=== PATIENT | male | born 1965 | race Caucasian/White ===

== ENCOUNTER → 2020-07-29 11:32 | Outpatient (BNVA) | payer MEDICAID, SELFPAY | PROVIDERS: PCP Internal Medicine Geriatric Medicine; Visit Provider Internal Medicine Pulmonary Disease | DX: J45.40 Moderate persistent asthma, uncomplicated (principal); Z91.09 Other allergy status, other than to drugs and biological substances | CPT/HCPCS: 99212 ==

== ENCOUNTER → 2020-08-16 10:53 | Outpatient (BNVA) | payer MEDICAID, SELFPAY | PROVIDERS: PCP Internal Medicine Geriatric Medicine; Visit Provider Orthopaedic Surgery | DX: M17.12 Unilateral primary osteoarthritis, left knee (principal); Z98.890 Other specified postprocedural states | CPT/HCPCS: 20610; 99212; J1100 ==

== ENCOUNTER 2020-11-23 11:42 | Outpatient (REF) | payer MEDICAID, SELFPAY ==
--- NOTE | ~2020-11-23 | XR_ITS ---
EXAMINATION: XR ELBOW, LEFT CLINICAL INFORMATION: Left elbow. Lump with tenderness laterally. COMPARISON: March 21, 2008 TECHNIQUE: AP, lateral, and oblique views of the left elbow. FINDINGS: There is no evidence of acute fracture or dislocation of the left elbow. No left elbow effusion is seen. There is lateral epicondyle calcification present XR/XR elbow LT min 3V IMPRESSION: Lateral epicondylitis.
== END 2020-11-23 11:43 | disposition home or self-care (01) ==
LOC: HO.XRAY 11:42
PROVIDERS: PCP Internal Medicine Geriatric Medicine; Visit Provider Nurse Practitioner Family
DX: M25.522 Pain in left elbow (principal)
CPT/HCPCS: 73080

== ENCOUNTER 2020-12-14 12:49 | Outpatient (REF) | payer MEDICAID, SELFPAY ==
--- NOTE | ~2020-12-14 | US_ITS ---
EXAMINATION: ULTRASOUND EXTREMITY NONVASCULAR CLINICAL INFORMATION: 54-year-old male with swelling and mass of the left upper limb. COMPARISON: Left elbow radiographs November 23, 2020 TECHNIQUE: Grayscale and color Doppler imaging was obtained in the region of palpable abnormality near the left elbow. FINDINGS: No focal soft tissue mass identified. No focal fluid collection identified. No abnormal color Doppler flow. The celiac vein in this region is compressible and demonstrates normal color flow consistent with patency. US/US extremity nonvascular kendrick IMPRESSION: No focal lesion identified by ultrasound imaging.
== END 2020-12-14 12:50 | disposition home or self-care (01) ==
LOC: HO.US 12:49
PROVIDERS: PCP Internal Medicine Geriatric Medicine; Visit Provider Nurse Practitioner Family
DX: M25.522 Pain in left elbow (principal); R22.32 Localized swelling, mass and lump, left upper limb
CPT/HCPCS: 76882

== ENCOUNTER → 2021-01-24 14:17 | Outpatient (BNVA) | payer MEDICAID, SELFPAY | PROVIDERS: PCP Internal Medicine Geriatric Medicine; Visit Provider Orthopaedic Surgery | DX: M77.12 Lateral epicondylitis, left elbow (principal) | CPT/HCPCS: 20550; 20605; 99212; J1100 ==

== ENCOUNTER → 2021-02-08 09:54 | Outpatient (BNVA) | payer MEDICAID, SELFPAY | PROVIDERS: PCP Internal Medicine Geriatric Medicine; Visit Provider Surgery Vascular Surgery | DX: I83.12 Varicose veins of left lower extremity with inflammation (principal) | CPT/HCPCS: 99202 ==

== ENCOUNTER → 2021-02-22 09:40 | Outpatient (BNVA) | payer MEDICAID, SELFPAY | PROVIDERS: PCP Internal Medicine Geriatric Medicine; Visit Provider Internal Medicine Pulmonary Disease | DX: J45.40 Moderate persistent asthma, uncomplicated (principal); Z91.09 Other allergy status, other than to drugs and biological substances | CPT/HCPCS: 99212 ==

== ENCOUNTER 2021-02-24 10:32 | Outpatient (REF) | payer MEDICAID, SELFPAY ==
--- NOTE | ~2021-02-24 | US_ITS ---
EXAMINATION: RIGHT and LEFT LOWER EXTREMITY VENOUS ULTRASOUND (Reflux Exam) CLINICAL INDICATION: leg pain and varicose veins. COMPARISON: None. TECHNIQUE: Color flow triplex imaging and compression Doppler was performed to evaluate both the deep and the superficial systems bilaterally. To evaluate the superficial system, the examination was performed in the upright position. Color-flow Doppler ultrasound and compression ultrasound were utilized. In addition, maneuvers were utilized to demonstrate reflux. FINDINGS: 1. DEEP VENOUS ULTRASOUND OF THE RIGHT LOWER EXTREMITY: Respiratory variation, normal compression and augmented flow are noted in the right common femoral vein as well as the right popliteal vein and there is no evidence of deep venous thrombosis at these locations. There is no evidence of reflux in the deep system in either the common femoral vein or the popliteal vein. There is no evidence of a Bettencourt's cyst. 2. SUPERFICIAL ULTRASOUND WITH DOPPLER OF RIGHT LOWER EXTREMITY: The right great saphenous vein at the saphenofemoral junction measures 7 mm, at the mid thigh 2 mm, ehppz-pkk-jexa 2 mm, lnpbe-jed-dabt 2 mm, at mid calf 2 mm and at the ankle measures 3 mm. There is right greater saphenous vein reflux measuring 2 seconds in the mid calf. There is an accessory lateral greater saphenous vein that measures 3 to 6 mm and does not demonstrate reflux. This appears to extend to the proximal calf and connected with the inner saphenous vein in the proximal calf. The right small saphenous vein measures 3 mm and shows no reflux. There are perforators in the mid thigh and mid calf measuring 2 and 1 mm that do not demonstrate reflux. Right leg varicosities are seen all measuring less than 3 mm and do not demonstrate reflux. 3. DEEP VENOUS ULTRASOUND OF THE LEFT LOWER EXTREMITY: Respiratory variation, normal compression and augmented flow are noted in the left common femoral vein as well as the left popliteal vein and there is no evidence of deep venous thrombosis at these locations. There is no evidence of reflux in the deep system in either the common femoral vein or the popliteal vein. . There is no evidence of a Bettencourt's cyst. 4. SUPERFICIAL ULTRASOUND WITH DOPPLER OF LEFT LOWER EXTREMITY: Left great saphenous vein at the saphenofemoral junction measures 8 mm, at the mid thigh 3 mm, acjhu-bet-asvw 2 mm, jqsjf-pql-skan 1 mm, at mid calf 2 mm and at the ankle measures 3 mm. There is no reflux demonstrated in the left great saphenous vein. The left small saphenous vein measures 2-3 mm and shows no reflux. There are small perforators and varicosities measuring less than 3 mm that do not demonstrate reflux. US/US venous duplex LE BI IMPRESSION: 1. No evidence of reflux or thrombus in the common femoral veins or popliteal veins bilaterally. 2. Right greater saphenous vein reflux in the mid calf measuring 2 seconds. No left greater saphenous vein reflux.
== END 2021-02-24 10:33 | disposition home or self-care (01) ==
LOC: HO.US 10:32
PROVIDERS: Visit Provider Surgery Vascular Surgery
DX: I83.12 Varicose veins of left lower extremity with inflammation (principal); I83.893 Varicose veins of bilateral lower extremities with other complications
CPT/HCPCS: 93970

== ENCOUNTER → 2021-03-03 10:36 | Outpatient (BNVA) | payer MEDICAID, SELFPAY | PROVIDERS: PCP Internal Medicine Geriatric Medicine; Visit Provider Surgery Vascular Surgery | DX: M79.605 Pain in left leg (principal) | CPT/HCPCS: 99212 ==

== ENCOUNTER 2021-03-14 13:30 | Outpatient (RCR) | payer MEDICAID, SELFPAY ==
--- NOTE | 2021-02-08 12:10 | MHC.OT.OEV ---
[address] [phone] F: [phone] Occupational Therapy Evaluation Diagnosis: LATERAL EPICONDYLITIS LEFT ELBOW Date of Onset: 01/19/20 Attending Provider: Omer Huitron Prescribed Treatment: EVAL AND TREAT History of Current Condition: REPORTS ABOUT A YEAR HISTORY OF L ELBOW PAIN. RECEIVED CORTISONE INJECTION BY DR HUITRON 01/24/21 AND ISSUED CFB AND STRETCHES. Significant Medical History: ASTHMA, DM, ARTHRITIS, HX KNEE AND BACK PAIN Precautions/Contraindications: PAIN, UNIVERSAL Patient Goals: TO BE ABLE TO USE ELBOW MORE Hand Dominance: Right Observations: CFB NOT DONNED TO THERAPY QuickDASH Score: 25% Prior Level of Function and Occupation Self Care, Employment, Leisure: UNEMPLOYED, PREVIOUSLY IN CONSTRUCTION. PLAYING IN POOL LEAGUE ABOUT 3X/WEEK WALKS, PREVIOUSLY PLAYING IN BASEBALL LEAGUE PRIOR TO COVID 19 PANDEMIC Living Situation, Family and/or Social Support: LIVES WITH ROOMMATE Current Level of Function and Occupation Self Care, Employment, Leisure: OCCASIONAL DIFFICULTY WITH WASHING BACK, REPORTS INCREASED PAIN WITH VACUUMING AND MOPPING. HARD TIME WITH CARRYING BAGS >10 POUNDS. LOW TOLERANCE TO HOLDING GALLON OF MILK. SOME PAIN WITH HOLDING POOL STICK. Sleep: FREQUENTLY WAKENS AT NIGHT FROM PAIN, UNABLE TO LAY ON LEFT ARM. INCREASED PAIN IN AM Driving: NO TROUBLES Pain Assessment Pain Score: 2-6/10 Pain Scale Used: Numeric (0 - 10) Pain Location and Description: LEFT LATERAL ELBOW > MEDIAL ELBOW REPORTS TINGLING AND ACHY PAIN Aggravating Factors: PROLONGED HOLDING OF HEAVY ITEMS, GRIPPING Alleviating Factors: USING ICE/HEAT, WEARING CFB, REST, INFREQUENT USE OF PAIN MEDICATION Skin and Soft Tissue Assessment Skin and Soft Tissue: Comments: MILD EDEMA TO LEFT LATERAL ELBOW Edema Assessment Upper Extremity: WNL Lower Extremity: Comments: CIRCUMFERENCE OF FOREARM, 20 CM PROXIMAL TO U.S. LEFT: 29.5 CM, RIGHT: 29.4 CM Dexterity Assessment Dexterity: WFL Comments: DENIES DIFFICULTIES WITH FINE MOTOR TASKS Special Tests Comments: AROM(PROM) Strength Elbow Flexion: L 145, R 150 Extension: L 0, R 0 Pronation: Supination: Comments: PAIN WITH END RANGE ELBOW EXTENSION Flexion: Extension: Pronation: Supination: Comments: Digits Index MCP: PIP: DIP: Long MCP: PIP: DIP: Ring MCP: PIP: DIP: Small MCP: PIP: DIP: Comments: Gross Grasp: L 35 POUNDS, R 75 POUNDS Lateral Pinch: L 15, R 21 Two-Point Pinch: L 15, R 14 Three-Jaw Mike: L 14, R 18 Comments: L ELBOW EXTENSION 15 POUNDS WITH INCREASED PAIN; PAIN WITH LEFT 3 JAW PINCH Patient Education Primary Language: Trinidadian Hris Administrator Required: No Current Knowledge: Understands information with skills for self-management Teaching Method: Demonstration Handouts Verbal Education Needs Identified on Evaluation: ADL's Disease Information Equipment Use Exercise Pain Safety How did patient/family demonstrate learning? Patient demonstrates Patient verbalizes Barriers to Learning: None Readiness for Learning: Accepting Who was educated? Patient Comments: Plan of Care Assessment: MR JOAQUIN IS A 55 Y/O M WITH HX OF LEFT LATERAL ELBOW PAIN FOR ABOUT ONE YEAR, S/S CONSISTENT WITH DX OF LATERAL EPICONDYLITIS. HAD CORTISONE INJECTION FROM DR HUITRON ON 01/24/21 WITH LITTLE RELIEF. HE REPORTS ONGOING DIFFICULTIES WITH CARRYING HEAVY OBJECTS AND GRIPPING TASKS. INCREASED PAIN WITH OUTSTRETCHED ARM AND ROTATIONAL MOVEMENTS, SOME RELIEF WITH USE OF HEAT AND ICE FOR PAIN. A 25% LIMITATION IS REPORTED PER THE QUICK DASH ASSESSMENT. JOE REPORTS INCONSISTENT USE OF CFB WHEN PLAYING POOL IN LEAGUE 3X/WEEK. ONGOING OT IS WARRANTED TO ADDRESS AREAS MENTIONED ABOVE AND IMPROVE QOL. STG Duration: 3 WEEKS Short Term Goals: IND HEP IND JOINT PROTECTION AND ACTIVITY MODIFICATION IND USE OF HEAT/ICE IND WITH CFB, ORTHOSIS WEAR PAINFREE AT REST AND LIGHT ADLs LTG Duration: 5 WEEKS Health Care Legal Assistant Goals: REPORT ZERO TO MILD INTERRUPTIONS IN SLEEP DUE TO PAIN INCREASE COMMUNICATIONS PROFESSOR STRENGTH TO 55 POUNDS TOLERATE LIFTING >15 POUNDS WITH <3/10 PAIN AND PROPER BODY MECHANICS IMPLEMENTED QUICK DASH <10% Frequency and Duration: The patient will be seen 2X/WEEK FOR 5 WEEKS Treatment Plan: Therapeutic Exercise Therapeutic Activity Home Exercise Program Splinting Neuro Re-ed Patient Education Desensitization/Sensory Re-ed Edema Control ADL Training Ultrasound NMES Iontophoresis Paraffin Fluidotherapy MHP Cold Packs Joint Mobilization Soft Tissue Mobilization Kinesiotaping Other (see comments) Electronically Signed By: KENRICK DRUMMOND OTR/L Reviewed/agree with student documentation: N/A Therapist: Please sign and return to therapist, Thank you for your referral.
--- NOTE | 2021-03-14 14:11 | MHC.OT.DC ---
[address] [phone] F: [phone] Occupational Therapy Discharge Note Provider: Omer Montalvo Diagnosis: LATERAL EPICONDYLITIS LEFT ELBOW Date of Evaluation: 02/08/21 Date of Discharge: 03/14/21 Treatments to Date: 9 Cancellations to Date: 1 No Shows to Date: 1 Discharge Status: Achieved Goals Improved Function Independent with HEP Discharge Summary: MR JOAQUIN HAS PROGRESSED WELL WITH HIS THERAPY AND IS READY FOR A TRANSITION TO A HOME BASED PROGRAM. HE HAS BEEN EDUCATED ON JOINT PROTECTION AND ACTIVITY MODIFICATIONS WITH IADLs, INCLUDING PLAYING POOL. HE IS IND WITH WEARING HIS CFB DURING THE DAY AND NIGHT SPLINT WITH SLEEPING. NO FURTHER OT WARRANTED AT THIS TIME. D/C OT Electronically Signed By: TOMI GALVAN/Brian Reviewed/agree with student documentation: N/A Therapist: Please Sign and return to therapist, thank you for your referral.
== END 2021-03-14 14:00 | disposition home or self-care (01) ==
LOC: HO.OT 13:30
PROVIDERS: PCP Internal Medicine Geriatric Medicine; Visit Provider Orthopaedic Surgery
DX: M77.12 Lateral epicondylitis, left elbow (principal)
CPT/HCPCS: 29125; 97035; 97110; 97140; 97165; 97530; 97760

== ENCOUNTER → 2021-08-23 09:43 | Outpatient (BNVA) | payer MEDICAID, SELFPAY | PROVIDERS: PCP Internal Medicine Geriatric Medicine; Visit Provider Internal Medicine Pulmonary Disease | DX: J45.40 Moderate persistent asthma, uncomplicated (principal); Z91.09 Other allergy status, other than to drugs and biological substances; J40 Bronchitis, not specified as acute or chronic | CPT/HCPCS: 99212 ==

== ENCOUNTER → 2021-12-27 12:57 | Outpatient (BNVA) | payer MEDICAID, SELFPAY | PROVIDERS: PCP Internal Medicine Geriatric Medicine; Referring Provider Internal Medicine Geriatric Medicine; Visit Provider Surgery | DX: M62.08 Separation of muscle (nontraumatic), other site (principal) | CPT/HCPCS: 99202 ==

== ENCOUNTER 2022-05-18 16:56 | Outpatient (REF) | payer MEDICAID, SELFPAY ==
--- NOTE | ~2022-05-18 | XR_ITS ---
EXAMINATION: XR KNEE, LEFT XR KNEE AP STANDING CLINICAL INFORMATION: Pain. COMPARISON: Radiographs dated 01/22/2020. TECHNIQUE: Four views of the left knee. AP bilateral standing view of the knees was obtained. FINDINGS: There is mild asymmetric narrowing of the medial joint space compartment of the left knee. The left knee shows mild tricompartment peripheral osteophyte formation. No fracture or dislocation is seen. There is a small left knee joint effusion. There is no foreign body. The lateral and medial joint space compartments of the right knee are well-maintained, with mild peripheral osteophyte formation. No significant varus or valgus configuration is seen bilaterally. XR/XR knee LT 2V IMPRESSION: 1. There is tricompartment osteoarthritic change of the left knee, most pronounced of the medial joint space compartment, where it is mild. 2. There is a small left knee joint effusion. 3. There is very mild osteoarthritic change of the lateral and medial joint space compartments of the right knee. 4. No significant varus or valgus configuration is seen bilaterally.
--- NOTE | ~2022-05-18 | XR_ITS ---
EXAMINATION: XR KNEE, LEFT XR KNEE AP STANDING CLINICAL INFORMATION: Pain. COMPARISON: Radiographs dated 01/22/2020. TECHNIQUE: Four views of the left knee. AP bilateral standing view of the knees was obtained. FINDINGS: There is mild asymmetric narrowing of the medial joint space compartment of the left knee. The left knee shows mild tricompartment peripheral osteophyte formation. No fracture or dislocation is seen. There is a small left knee joint effusion. There is no foreign body. The lateral and medial joint space compartments of the right knee are well-maintained, with mild peripheral osteophyte formation. No significant varus or valgus configuration is seen bilaterally. XR/XR knee standing BI IMPRESSION: 1. There is tricompartment osteoarthritic change of the left knee, most pronounced of the medial joint space compartment, where it is mild. 2. There is a small left knee joint effusion. 3. There is very mild osteoarthritic change of the lateral and medial joint space compartments of the right knee. 4. No significant varus or valgus configuration is seen bilaterally.
== END 2022-05-18 16:57 | disposition home or self-care (01) ==
LOC: HO.HOSX 16:56
PROVIDERS: Visit Provider Orthopaedic Surgery
DX: M17.12 Unilateral primary osteoarthritis, left knee (principal)
CPT/HCPCS: 20610; 73560; 73565; 99212; J1100

== ENCOUNTER 2023-03-15 09:47 | Outpatient (AMB) | payer MEDICAID, SELFPAY ==
--- NOTE | 2023-03-15 10:02 | MHC.OFFVIS ---
Intake Intake Visit Reasons: OV- left knee OA last injection 05/18/22 Intake Note: Jacques is a 57 year old male who presents today for a follow up of his left knee. Last injection done in this knee 05/18/22, he reports that these injections are rather helpful and would like to repeat injection today. Patient also reports that he is having increased left hip pain Allergies No Known Allergies Allergy (Verified 03/15/23 10:03) HPI OV- left knee OA last injection 05/18/22 HPI Details Jacques is a 57 year old Diabetic man who returns to discuss his left knee OA. He was last seen, and injected, on 05/18/22, with good relief. He says he had good relief from gel injections in the past. He complains of pain in his knee with daily activity, and would like a repeat injection today. He says he remains active and walks 3-4 miles daily. He complains of some LBP that radiates into his left hip. He says he has some pain with using stairs, or when bending over to tie his shoes. He has some numbness in his leg occasionally when standing from a seated position. He says he also has some neck pain, and occasionally has some numbness when he wakes up in the morning. [facility] Medical History (Updated 03/15/23 @ 10:36 by Mook De Leon) Asthma Diabetes Surgical History History of colonoscopy History of incision and drainage Hx of knee surgery Social History Alcohol intake: current Alcohol intake frequency: a few times a week Current occupational status: unemployed Review of Systems Const All systems reviewed & are unremarkable except as noted in HPI and below Physical Exam Const General: no acute distress and alert Orientation/consciousness: patient oriented x3 Neuro General: patient oriented x3 Extrem Other: Left Knee: TTP medial joint line Left hip: Soft tissue tenderness over piriformis fossa without any reproducible numbness or tingling Full ROM Psych Appearance: grossly normal Affect: normal affect Attitude: cooperative Office Procedures Joint Injection/Drain Joint Injection/Drain Details: Injected 1 mL of Decadron and 3 mL 1% lidocaine and 3 mL of 0.25% Marcaine. Site was prepped using aseptic technique. Patient tolerated the procedure well. Primary Site: left knee Approach Used: anterolateral Coding - Large joint Procedure code (CPT) selection complete Results Reviewed Results Reviewed: 03/15/23 10:09 BUPivacaine MPF 0.25 % [Sensorcaine-MPF 0.25% 10 ML] 10 ml .ROUTE .STK-MED ONE Lidocaine HCl 2 % MPF [Xylocaine 2 % MPF] 5 ml .ROUTE .STK-MED ONE dexAMETHasone sod phosphate [Decadron] 4 mg .ROUTE .STK-MED ONE I personally reviewed relevant radiographs. Mild-moderate left knee OA Assessment & Plan Assessment & Plan (1) Localized osteoarthritis of left knee: Code(s): M17.12 - Unilateral primary osteoarthritis, left knee Plan: This is a 57 year old man with mild-moderate left knee OA. He has pain with daily activity and a Hx of relief from both steroid & gel injections. I injected his left knee today, which he tolerated well. He can follow up prn. (2) Diabetes: Code(s): E11.9 - Type 2 diabetes mellitus without complications Plan: I discussed the hyperglycemic effects of steroid injections. (3) Contusion of left hip: Code(s): S70.02XA - Contusion of left hip, initial encounter Plan: W/o numbness Plan Scribed for Omer Montalvo MD by Mook De Leon, medical assistant cardiology, on 03/15/23 at 10:15 AM, EST. Coding Level of Care Code Est Pt Level 4 (07238) Diagnoses Localized osteoarthritis of left knee M17.12 Diabetes E11.9 Contusion of left hip S70.02XA CPT Codes Coding - Large joint: 30253 - Large joint ([id number])
== END 2023-03-15 10:33 | disposition home or self-care (01) ==
PROVIDERS: PCP Internal Medicine Geriatric Medicine; Visit Provider Orthopaedic Surgery
DX: M17.12 Unilateral primary osteoarthritis, left knee (principal); S70.02XA Contusion of left hip, initial encounter
CPT/HCPCS: 20610; 99214

== ENCOUNTER → 2023-03-15 09:47 | Outpatient (BNVA) | payer MEDICAID, SELFPAY | PROVIDERS: PCP Internal Medicine Geriatric Medicine; Visit Provider Orthopaedic Surgery | DX: M17.12 Unilateral primary osteoarthritis, left knee (principal); E11.9 Type 2 diabetes mellitus without complications; S70.02XD Contusion of left hip, subsequent encounter | CPT/HCPCS: 20610; 99212; J1100 ==

== ENCOUNTER 2023-04-03 11:49 | Outpatient (REF) | payer MEDICAID, SELFPAY ==
[2023-04-03 14:11] LABS: Anion Gap 14 (12-20); Blood Urea Nitrogen 11 mg/dL (9-16); Calcium 9.3 mg/dL (8.4-10.2); Carbon Dioxide 29 mmol/L (22-29); Chloride 102 mmol/L (96-108); Estimated Glomerular Filt Rate > 60; Glucose Random 128 mg/dL (60-115); Potassium 3.8 mmol/L (3.3-5.1); Sodium 141 mmol/L (135-145)
== END 2023-04-03 11:50 | disposition home or self-care (01) ==
LOC: HO.HHCL 11:49
PROVIDERS: Visit Provider Internal Medicine Geriatric Medicine
DX: E11.9 Type 2 diabetes mellitus without complications (principal); I10 Essential (primary) hypertension
CPT/HCPCS: 36415; 80048

== ENCOUNTER 2023-04-28 10:25 | Outpatient (REF) | payer MEDICAID, SELFPAY ==
--- NOTE | ~2023-04-28 | MR_ITS ---
EXAMINATION: MR ANGIOGRAPHY BRAIN WITHOUT CONTRAST CLINICAL INFORMATION: Family history brain aneurysm. COMPARISON: None available. TECHNIQUE: Unenhanced 3-D [id number] MR angiography of the head with multiple 3-D reformatted images processed under concurrent supervision on the technologist workstation. FINDINGS: The incidentally visualized non-angiographic components of the examination demonstrate partial visualization of mild diffuse commensurate prominence of ventricles and sulci grossly within expected images of normal anatomic variation. No gross focal parenchymal lesions of the brain or abnormal extra-axial fluid collections identified. The totality of the brain is not included within the image [id number]. Partial visualization is made of mucosal thickening and retained secretions within the left maxillary sinus. Angiographic component of the examination: Left vertebral artery is dominant. An anterior communicating artery is identified. No intracranial stenoses, occlusions or aneurysms are visualized. Multiple angiographic reformatted 3-D images confirm findings made upon review of the axial images. MR/MR angio head wo con IMPRESSION: 1. Normal MR angiography of the head. No intracranial aneurysms identified. 2. Partial visualization of mucosal thickening and retained secretions within the left maxillary sinus which may correlate with sinusitis.
== END 2023-04-28 10:26 | disposition home or self-care (01) ==
LOC: HO.MRI 10:25
PROVIDERS: PCP Internal Medicine Geriatric Medicine; Visit Provider Internal Medicine Geriatric Medicine
DX: Z82.49 Family history of ischemic heart disease and other diseases of the circulatory system (principal)
CPT/HCPCS: 70544

== ENCOUNTER 2023-07-27 11:16 | Outpatient (REF) | payer MEDICAID, SELFPAY ==
[2023-07-27 14:49] LABS: Alanine Aminotransferase 47 U/L (0-40); Alkaline Phosphatase 72 U/L (39-117); Anion Gap 16 (12-20); Aspartate Amino Transferase 34 U/L (5-37); Bilirubin Total 0.6 mg/dL (0.0-1.0); Blood Urea Nitrogen 12 mg/dL (9-16); Calcium 9.9 mg/dL (8.4-10.2); Carbon Dioxide 27 mmol/L (22-29); Chloride 100 mmol/L (96-108); Cholesterol 165 mg/dL (<200); Estimated Glomerular Filt Rate > 60; Glucose Random 91 mg/dL (60-115); HDL Cholesterol 44 mg/dL (>40); LDL Cholesterol Calculated 92 mg/dL (<100); Potassium 4.2 mmol/L (3.3-5.1); Sodium 139 mmol/L (135-145); Total Protein 7.8 g/dL (6.5-8.0); Triglycerides 146 mg/dL (<150)
[2023-07-27 14:50] LABS: Creatinine Urine 83.24 mg/dL; Microalbum/Creatinine Ratio Ur 31.2 ug/mg cr (<30)
== END 2023-07-27 11:17 | disposition home or self-care (01) ==
LOC: HO.HHCL 11:16
PROVIDERS: Visit Provider Internal Medicine Geriatric Medicine
DX: E11.9 Type 2 diabetes mellitus without complications (principal); J45.909 Unspecified asthma, uncomplicated; I10 Essential (primary) hypertension; J45.40 Moderate persistent asthma, uncomplicated
CPT/HCPCS: 36415; 80053; 80061; 82043; 82570

== ENCOUNTER 2024-03-03 13:56 | Outpatient (REF) | payer MEDICAID, SELFPAY ==
[2024-03-03 16:57] LABS: Creatinine Urine 153.91 mg/dL; Microalbum/Creatinine Ratio Ur 40.9 ug/mg cr (<30)
== END 2024-03-03 13:57 | disposition home or self-care (01) ==
LOC: HO.HHCL 13:56
PROVIDERS: Visit Provider Internal Medicine Geriatric Medicine
DX: E11.9 Type 2 diabetes mellitus without complications (principal)
CPT/HCPCS: 82043; 82570

== ENCOUNTER 2024-08-15 16:43 | Outpatient (REF) | payer MEDICAID, SELFPAY | END 2024-08-15 16:44 | disposition home or self-care (01) | LOC: HO.HHCLNP 16:43 | PROVIDERS: Visit Provider Nurse Practitioner Family | DX: Z13.89 Encounter for screening for other disorder (principal) ==

== ENCOUNTER 2024-08-19 14:04 | Outpatient (REF) | payer MEDICAID, SELFPAY | END 2024-08-19 14:05 | disposition home or self-care (01) | LOC: HO.HHCLNP 14:04 | PROVIDERS: Visit Provider Nurse Practitioner Primary Care | DX: J02.9 Acute pharyngitis, unspecified (principal) | CPT/HCPCS: 87070 ==

== ENCOUNTER 2024-10-16 13:47 | Outpatient (REF) | payer MEDICAID, SELFPAY ==
[2024-10-16 16:14] LABS: MANUAL DIFF FLAG NO
[2024-10-16 16:19] LABS: Basophils Absolute Auto 0.1 X10*3/uL (0.0-0.2); Basophils Percent Auto 0.9 % (0-2); Eosinophils Absolute Auto 0.3 X10*3/uL (0.0-0.4); Eosinophils Percent Auto 3.9 % (0-4); Hematocrit 49.4 % (42.0-52.0); Hemoglobin 15.6 g/dl (14.0-18.0); Imm Gran Abs Auto 0.03 X10*3/uL (0.00-0.03); Imm Gran Pct Auto 0.4 % (0.0-0.4); Lymphocytes Absolute Auto 1.9 X10*3/uL (1.2-4.9); Lymphocytes Percent Auto 26.8 % (20-40); Mean Corpuscular HGB Conc 31.6 g/dl (31.0-36.0); Mean Corpuscular Hemoglobin 28.6 pg (27.0-33.0); Mean Corpuscular Volume 90.5 fL (80.0-98.0); Mean Platelet Volume 10.3 fL (9.4-12.4); Monocytes Absolute Auto 0.9 X10*3/uL (0.1-1.2); Monocytes Percent Auto 12.3 % (2-11); Neutrophils Absolute Auto 3.8 x10*3/uL (2.0-8.3); Neutrophils Percent Auto 55.7 % (45-73); Platelet Count 264 X10*3/uL (160-400); Red Blood Count 5.46 X10*6/uL (4.60-5.80); Red Cell Distribution Width 14.2 % (11.0-16.0); White Blood Count 6.9 X10*3/uL (4.8-10.8)
--- OUTSIDE RECORDS SUMMARY | 2024-10-16 16:37 | XMS_ITS | Encounter Summary ---
Author Organization [employer] Address [address] [place] [address] Care Team Providers Care Cardiothoracic Icu Rn Name Role Phone Name, Johann CARRERA Primary Care Provider [phone] Reason for Visit * Reason Comments Med Refill Encounter Details Date Type Department Care Team (Late st Contact Info) Description 11/12/2023 Refill [facility] [address] [place], [place] [phone] Name, MD Johann [address] [place] [address] Acute pain of right shoulder; Asthma, unspecified asthma severity, unspecified whether complicated, unspecified whether persistent Social History Tobacco Use Types Packs/Day Years Used Date Smoking Tobacco: Former Cigarettes Smokeless Tobacco: Never Alcohol Use Standard Drinks/Week Comments Yes 10 (1 standard drink = 0.6 oz pu re alcohol) occassional Housing Stability Answer Date Recorded What is your housing situation today? I have sorin zarate 06/07/[address] you li ve. Do you have problems with any of the following? None of the above 06/07/2023 Food Insecurity Answer Date Recorded Within the past 12 months, y ou worried that your food would run out before you got money to buy more: Never True 06/07/2023 Within the past 12 months,th e food you bought just didn't last and you didn't have enough money to get more: Never True Transportation Answer Date Recorded In the past 12 months, has l ack of transportation kept you from medical appts, meetings, work or from getting things needed for daily living? No 06/07/2023 Utilities Answer Date Recorded In the past 12 months, has t he electric, gas, oil or water company threatened to shut off services in your home? No 06/07/2023 Depression Answer Date Recorded Patient Health Questionnaire-2 Score 0 10/24/2022 Sex and Gender Information Value Date Recorded Sex Assigned at Male 06/19/2022 10:21 AM EDT Legal Sex Male 10:21 AM EDT Gender Identity Male 06/19/2022 10:21 AM EDT Sexual Orientation Straight 06/19/2022 10 :21 AM EDT documented as of this encounter Plan of Treatment Upcoming Encounters Date Type Department Care Team (Late st Contact Info) Description 10/27/2024 11:15 AM EDT Office Visit [facility] [address] [place], [place] [phone] Raya Jordan, OD [address] [place] [address] 01/06/2025 10:45 AM EDT Office Visit [facility] [address] [place] [address] Name, MD Johann [address] [place] [address] documented as of this encounter Visit Diagnoses Diagnosis Acute pain of right shoulder Asthma, unspecified asthma severity, unspecified whether complicated, unspecified whether persistent documented in this encounter Care Teams Cardiothoracic Icu Rn Relationship Specialty Start Date End Date Johann Gilbert MD [address] [place] [id number] PCP - General Family Medicine 10/22/15 documented as of this encounter
--- OUTSIDE RECORDS SUMMARY | 2024-10-16 16:37 | XMS_ITS | Encounter Summary ---
Author Organization [employer] Address [address] [place] [address] Care Team Providers Care Stave Bolt Equalizer Name Role Phone Name, Johann CARRERA Primary Care Provider [phone] Reason for Visit * Reason Comments Med Refill Encounter Details Date Type Department Care Team (Late st Contact Info) Description 03/13/2024 Refill [facility] [address] [place], [place] [phone] Name, MD Johann [address] [place] [address] Erectile dysfunction, unspecified erectile dysfunction type Social History Tobacco Use Types Packs/Day Years Used Date Smoking Tobacco: Former Cigarettes Smokeless Tobacco: Never Alcohol Use Standard Drinks/Week Comments Yes 10 (1 standard drink = 0.6 oz pu re alcohol) occassional Alcohol Answer Date Recorded Frequency of Alcohol Consumption Not on file 03/03/2024 Average Number of Drinks Not on file 024 Frequency of Binge Drinking Not on file 02/17 Score 0 03/03/2024 Depression Answer Date Recorded Patient Health Questionnaire-9 Score 0 11/20/2023 Patient Health Questionnaire-9 Score 0 11/20/2023 Last PHQ-9: Questionnaire Data Not on file 0 11/20/2023 Housing Stability Answer Date Recorded What is your housing situation today? I have sorin zarate 11/20/[address] you li ve. Do you have problems with any of the following? None of the above 11/20/2023 Food Insecurity Answer Date Recorded Within the past 12 months, y ou worried that your food would run out before you got money to buy more: Never True 11/20/2023 Within the past 12 months,th e food you bought just didn't last and you didn't have enough money to get more: Never True 09/2023 Transportation Answer Date Recorded In the past 12 months, has l ack of transportation kept you from medical appts, meetings, work or from getting things needed for daily living? No 11/20/2023 Utilities Answer Date Recorded In the past 12 months, has t he electric, gas, oil or water company threatened to shut off services in your home? No 11/20/2023 Depression Answer Date Recorded Patient Health Questionnaire-2 Score 0 11/20/2023 Sex and Gender Information Value Date Recorded Sex Assigned at Male 06/19/2022 10:21 AM EDT Legal Sex Male 10:21 AM EDT Gender Identity Male 06/19/2022 10:21 AM EDT Sexual Orientation Straight 06/19/2022 10 :21 AM EDT documented as of this encounter Plan of Treatment Upcoming Encounters Date Type Department Care Team (Late st Contact Info) Description 10/27/2024 11:15 AM EDT Office Visit [facility] OPTOMET[facility] [address] [place] [address] Tarka, Raya, OD [address] [place] [address] 01/06/2025 10:45 AM EDT Office Visit [facility] [address] [place] [address] NameJohann MD [address] [place] [address] documented as of this encounter Visit Diagnoses Diagnosis Erectile dysfunction, unspecified erectile dysfunction type documented in this encounter Additional Health Concerns Assessment Noted Time PHQ-9 Depression Total Score: 0 11/20/19 24 10:53 AM EDT documented as of this encounter Care Teams Stave Bolt Equalizer Relationship Specialty Start Date End Date NameJohann MD [address] [place] [id number] PCP - General Family Medicine 10/22/15 documented as of this encounter
--- OUTSIDE RECORDS SUMMARY | 2024-10-16 16:37 | XMS_ITS | Encounter Summary ---
Author Organization [email or web address] Address [address] [facility] 7t [place] [address] Care Team Providers Care Coal Crusher Operator Name Role Phone Name, Johann CARRERA Primary Care Provider [phone] Reason for Visit * Reason Onset Date Comments Nurse Triage 08/28/2023 Encounter Details Date Type Department Care Team ([facility] st Contact Info) Description 08/28/2023 Telephone [facility] MEDICINE [address] [place], [place] [phone] Name, MD Johann 230 [place] [address] Nurse Triage Social History Tobacco Use Types Packs/Day Years [...] the past 12 months, has t he [employer], gas, oil or water [employer] threatened to shut off services in your home? No 06/07/2023 Depression Answer Date Recorded Patient Health Questionnaire-2 Score 0 10/24/2022 Sex and Gender Information Value Date Recorded Sex Assigned at Male 06/19/2022 10:21 AM EDT Legal Sex Male 10:21 AM EDT Gender Identity Male 06/19/2022 10:21 AM EDT Sexual Orientation Straight 06/19/2022 10 :21 AM EDT documented as of this encounter Miscellaneous Notes * Telephone Encounter - Aurora Salguero RN - 08/28/2023 3:54 PM EST Triage call Pt was seen in [facility] 08/22/23. Pt had impacted cerumen in left ear. Pt has used debrox dropsand irrigated ear with warm water and reports the ear is still plugged but, now hearing is muffled. Pt is advised to try the procedure again and if not successful come to [facility] for provider to take alook at ear. Pt agrees with this plan and disposition. Removal of earwax reviewed. Protocol Used: Earwax (Adult) Protocol-Based Disposition: Home Care Positive Triage Question: * Earwax removal, questions about * All higher-acuity triage questions were negative Care Advice Discussed: * Reassurance and Education - Earwax * Ear Canals Are Usually Self-Cleaning * Do Not Use Cotton Swabs (e.g., Q-tips) or Other Objects to Remove Wax * Reasons To Call Back - Earache occurs - You become worse - You have more questions * Reassurance and Education - Earwax Buildup * Ear Drops to Soften Wax * Ear Drops - Instructions * Ear Drops - Extra Notes and Warnings * Ear Syringing - If Wax Remains After Using Ear Drops * Ear Syringing - Instructions * Ear Syringing - Extra Notes and Warnings * Expected Course * Reasons To Call Back - Earache occurs - You become worse * Telephone Encounter - Doris Roman - 08/28/2023 3:12 PM EST Symptom: Ear Congestion Without Pain Outcome: Schedule an appointment to be seen within 3 days Reason: This is the only possible outcome for this symptom, was advised to call back on 08/22C appointment if ear does not get any better The caller accepted this outcome Please contact pt at [phone] documented in this encounter Plan of Treatment Upcoming Encounters Date Type Department Care Team ([facility] st Contact Info) Description 10/27/2024 11:15 AM EDT Office Visit [facility] OPTOMETRY [address] [place], [place] [phone] Raya Jordan, OD 267 [place] [address] 01/06/2025 10:45 AM EDT Office Visit [facility] MEDICINE 230 [place] [address] Name, MD Johann [address] [place] [address] documented as of this encounter Visit Diagnoses Not on filedocumented in this encounter Care Teams Coal Crusher Operator Relationship Specialty Start Date End Date NameJohann MD [address] [place] [address] PCP - General Family Medicine 10/22/15 documented as of this encounter
--- OUTSIDE RECORDS SUMMARY | 2024-10-16 16:37 | XMS_ITS | Encounter Summary ---
Author Organization [employer] Address [address] [facility] [address] 7t [place] [address] Care Team Providers Care Firearms Model Maker Name Role Phone Name, Johann CARRERA Primary Care Provider [phone] Reason for Visit * Reason Onset Date Comments november recalls 10/10/2024 Encounter Details Date Type Department Care Team (Late st Contact Info) Description 10/10/2024 Telephone [facility] MEDICINE [address] [place], [place] [phone] Pepito Zhu [place] november recalls Social History Tobacco Use Types Packs/Day Years [...] encounter Miscellaneous Notes * Telephone Encounter - Pepito Zhu MA - 10/10/2024 2:36 PM EST Telephone call to patient to schedule the following recall: Visit type: Follow up Appointment notes: HTN Patient agree to appointment on 01/06/25 at 10:45 AM with Name. documented in this encounter Plan of Treatment Upcoming Encounters Date Type Department Care Team (Late st Contact Info) Description 10/27/2024 11:15 AM EDT Office Visit [facility] OPTOMETRY 267 [place] [address] Raya Jordan, OD 267 [place] [address] 01/06/2025 10:45 AM EDT Office Visit [facility] MEDICINE 230 [place] [address] Name, MD Johann 230 [place] [address] documented as of this encounter Visit Diagnoses Not on filedocumented in this encounter Additional Health Concerns Assessment Noted Time PHQ-9 Depression Total Score: 0 11/20/19 24 10:53 AM EDT documented as of this encounter Care Teams Firearms Model Maker Relationship Specialty Start Date End Date Name, MD Johann 230 [place] [address] PCP - General Family Medicine 10/22/15 documented as of this encounter
--- OUTSIDE RECORDS SUMMARY | 2024-10-16 16:37 | XMS_ITS | Encounter Summary ---
Author Organization [employer] [facility] Address [address] [place] [address] 7t [place] [address] Care Team Providers Care Still Operator Whiskey Name Role Phone NameJohann MD Primary Care Provider [phone] Reason for Visit * Reason Comments Med Refill Encounter Details Date Type Department Care Team (Late st Contact Info) Description 01/18/2023 Refill [facility] MEDICINE [address] [place] [address] NameJohann MD [address] [place] [address] Social History Tobacco Use Types Packs/Day Years Used Date Smoking Tobacco: Never Smokeless Tobacco: Never Depression Answer Date Recorded Patient Health Questionnaire-2 [...] Description 10/27/2024 11:15 AM EDT Office Visit [facility] OPTOMETRY [address] [place], [place] [phone] Raya Jordan OD 267 [place] [address] 01/06/2025 10:45 AM EDT Office Visit [facility] MEDICINE [address] [place] [address] Johann Gilbert MD [address] [place] [address] [place] [address] documented as of this encounter Visit Diagnoses Not on filedocumented in this encounter Care Teams Still Operator Whiskey Relationship Specialty Start Date End Date Name, [place] [address] PCP - General Family Medicine 10/22/15 documented as of this encounter
--- OUTSIDE RECORDS SUMMARY | 2024-10-16 16:37 | XMS_ITS | Encounter Summary ---
Author Organization [employer] Address [address] [facility] [address] 7t [place] [address] Care Team Providers Care Compressor Assembler Name Role Phone Name, Johann CARRERA Primary Care Provider [phone] Encounter Details Date Type Department Care Team ([facility] st Contact Info) Description 12/18/2023 Telephone [facility] MEDICINE 230 [place], [place] [phone] Name, MD Johann 230 [place] [address] Social History Tobacco Use Types Packs/Day Years Used Date Smoking Tobacco: Former Cigarettes Smokeless Tobacco: Never Alcohol Use Standard Drinks/Week Comments Yes 10 (1 standard drink = 0.6 oz pu re alcohol) occassional Depression Answer Date Recorded Patient Health Questionnaire-9 [...] Description 10/27/2024 11:15 AM EDT Office Visit [facility] OPTOMETRY [address] [place] [address] Raya Jordan, OD 267 [place] [address] 01/06/2025 10:45 AM EDT Office Visit [facility] MEDICINE [address] [place] [address] NameJohann MD [address] [place] [address] documented as of this encounter Visit Diagnoses Not on filedocumented in this encounter Additional Health Concerns Assessment Noted Time PHQ-9 Depression Total Score: 0 11/20/19 24 10:53 AM EDT documented as of this encounter Care Teams Compressor Assembler Relationship Specialty Start Date End Date NameJohann MD [address] [place] [address] PCP - General Family Medicine 10/22/15 documented as of this encounter
--- OUTSIDE RECORDS SUMMARY | 2024-10-16 16:37 | XMS_ITS | Encounter Summary ---
Author Organization [employer] [facility] Address [address] [place] [address] 7t [place] [address] Care Team Providers Care Brick Washer Name Role Phone NameJohann MD Primary Care Provider [phone] Reason for Visit * Reason Comments Med Refill Encounter Details Date Type Department Care Team (Late st Contact Info) Description 12/20/2022 Refill [facility] MEDICINE [address] [place] [address] NameJohann MD [address] [place] [address] Social History Tobacco Use Types Packs/Day Years [...] Description 10/27/2024 11:15 AM EDT Office Visit [facility] OPTOMETRY 267 [place], [place] [phone] Raya Jordan OD 267 [place] [address] 01/06/2025 10:45 AM EDT Office Visit [facility] MEDICINE [address] [place] [address] Johann Gilbert MD [address] [place] [address] [place] [address] documented as of this encounter Visit Diagnoses Not on filedocumented in this encounter Care Teams Brick Washer Relationship Specialty Start Date End Date Name, MD [place] [address] PCP - General Family Medicine 10/22/15 documented as of this encounter
--- OUTSIDE RECORDS SUMMARY | 2024-10-16 16:37 | XMS_ITS | Encounter Summary ---
Author Organization [employer] Address [address] [facility] 7t [place] [address] Care Team Providers Care Textile Bag Sewer Name Role Phone Name, Johann CARRERA Primary Care Provider Reason for Visit * Reason Onset Date Comments Appointment Request 02/04/2024 Encounter Details Date Type Department Care Team ([facility] st Contact Info) Description 02/04/2024 Telephone [facility] MEDICINE 230 [place], [place] [phone] Name, MD Johann 230 [place] [address] Appointment Request Social History Tobacco Use Types Packs/Day Years [...] encounter Miscellaneous Notes * Telephone Encounter - Scar Murillo RN - 02/07/2024 3:31 PM EDT T/C to pt. For below message, pt. States he already had surgery and no concern right now. Pt. Advised to give call to [facility] if any question and concern. Pt. Verbally agreed and understood, * Telephone Encounter - Benito Hua - 02/04/2024 3:16 PM EDT Tc from pt is having surgery done on the and was advised to follow up with pcp regarding A1C. Pt already had a pre op visit in [facility] and stated they faxed pre op notes over for pt to follow up on A1C. Please contact pt at [phone]. documented in this encounter Plan of Treatment Upcoming Encounters Date Type Department Care Team (Late st Contact Info) Description 10/27/2024 11:15 AM EDT Office Visit [facility] OPTOMETRY [address] [place] [address] Raya Jordan, OD 267 [place] [address] 01/06/2025 10:45 AM EDT Office Visit [facility] MEDICINE 230 [place] [address] Name, MD Johann 230 [place] [address] documented as of this encounter Visit Diagnoses Not on filedocumented in this encounter Additional Health Concerns Assessment Noted Time PHQ-9 Depression Total Score: 0 11/20/19 24 10:53 AM EDT documented as of this encounter Care Teams Textile Bag Sewer Relationship Specialty Start Date End Date Name, MD Johann 230 [place] [address] PCP - General Family Medicine 10/22/15 documented as of this encounter
--- OUTSIDE RECORDS SUMMARY | 2024-10-16 16:37 | XMS_ITS | Encounter Summary ---
Author Organization [employer] [facility] Address [address] [place] [address] 7t [place] [address] Care Team Providers Care Rough Rice Tender Name Role Phone Name, Johann CARRERA Primary Care Provider [phone] Encounter Details Date Type Department Care Team (Late st Contact Info) Description 01/22/2023 Abstract [facility] MEDICINE [address] [place] [address] Name, MD Johann [address] [place] [address] Social History Tobacco Use Types Packs/Day Years [...] Description 10/27/2024 11:15 AM EDT Office Visit [facility] OPTOMETRY 267 [place], [place] [phone] Raya Jordan OD 267 [place] [address] 01/06/2025 10:45 AM EDT Office Visit [facility] MEDICINE [address] [place] [address] Name, MD Johann [address] [place] [address] documented as of this encounter Procedures Procedure Name Priority Date/Time Associated Diagnosis Comments COLONOSCOPY Routine 05/11/2016 11:38 AM EDT documented in this encounter Results * Hm Colonoscopy (05/11/2016 11:38 AM EDT) Colonoscopy Normal Normal Narrative AltagraciaKatarina shaw - 05/11/2016 11:38 AM EDT Recommended 10 year follow up Historical Provider HEALTH MAINTENANCE Final Result documented in this encounter Visit Diagnoses Not on filedocumented in this encounter Care Teams Rough Rice Tender Relationship Specialty Start Date End Date Name, MD Johann [address] [place] [address] PCP - General Family Medicine 10/22/15 documented as of this encounter
--- OUTSIDE RECORDS SUMMARY | 2024-10-16 16:37 | XMS_ITS | Encounter Summary ---
Author Organization [employer] Address [address] [place] [address] 7t [place] [address] Care Team Providers Care Coin Machine Service Repairer Name Role Phone Name, Johann CARRERA Primary Care Provider [phone] Encounter Details Date Type Department Care Team (Late st Contact Info) Description 08/23/2022 Orders Only [facility] MED & PEDS [address] [place] [address] Marsha Juares LPN Social History Tobacco Use Types Packs/Day Years Used Date Smoking Tobacco: Never Assessed Sex and Gender Information Value Date Recorded Sex Assigned at Male 06/19/2022 10:21 AM EDT Legal Sex Male 10:21 AM EDT Gender Identity Male 06/19/2022 10:21 AM EDT Sexual Orientation Straight 06/19/2022 10 :21 AM EDT documented as of this encounter Plan of Treatment Upcoming Encounters Date Type Department Care Team (Late st Contact Info) Description 10/27/2024 11:15 AM EDT Office Visit [facility] OPTOMETRY [address] [place] [address] Raya Jordan OD 267 [place] [address] 01/06/2025 10:45 AM EDT Office Visit [facility] MEDICINE 230 [place] [address] Johann Gilbert MD 230 [place] [address] documented as of this encounter Visit Diagnoses Not on filedocumented in this encounter Care Teams Coin Machine Service Repairer Relationship Specialty Start Date End Date Johann Gilbert MD 230 [place] [address] PCP - General Family Medicine 10/22/15 documented as of this encounter
--- OUTSIDE RECORDS SUMMARY | 2024-10-16 16:37 | XMS_ITS | Encounter Summary ---
Author Organization [employer] Address [address] [place] [address] 7t [place] [address] Care Team Providers Care Doughnut Glazier Name Role Phone Name, Johann CARRERA Primary Care Provider [phone] Encounter Details Date Type Department Care Team (Late st Contact Info) Description 08/01/2022 Orders Only [facility] MED & PEDS [address] [place] [address] Marsha Juares LPN Social History Tobacco Use [...] Description 10/27/2024 11:15 AM EDT Office Visit [facility] OPTOMETRY [address] [place] [address] Raya Jordan OD 267 [place] [address] 01/06/2025 10:45 AM EDT Office Visit [facility] MEDICINE 230 [place] [address] Johann Gilbert MD 230 [place] [address] documented as of this encounter Visit Diagnoses Not on filedocumented in this encounter Care Teams Doughnut Glazier Relationship Specialty Start Date End Date Johann Gilbert MD 230 [place] [address] PCP - General Family Medicine 10/22/15 documented as of this encounter
--- OUTSIDE RECORDS SUMMARY | 2024-10-16 16:37 | XMS_ITS | Encounter Summary ---
Author Organization [employer] [facility] Address [address] [place] [address] 7t [place] [address] Care Team Providers Care Manufacturing Industrial Engineer Name Role Phone NameJohann MD Primary Care Provider [phone] Reason for Visit * Reason Comments Med Refill Encounter Details Date Type Department Care Team (Late st Contact Info) Description 01/19/2023 Refill [facility] MEDICINE [address] [place] [address] NameJohann MD [address] [place] [address] Social History Tobacco Use Types Packs/Day Years [...] 11:15 AM EDT Office Visit [facility] OPTOMETRY 267 [place], [place] [phone] Raya Jordan OD 267 [place] [address] 01/06/2025 10:45 AM EDT Office Visit [facility] MEDICINE [address] [place] [address] Johann Gilbert MD [address] [place] [address] [place] [address] documented as of this encounter Visit Diagnoses Not on filedocumented in this encounter Care Teams Manufacturing Industrial Engineer Relationship Specialty Start Date End Date Name, MD [place] [address] PCP - General Family Medicine 10/22/15 documented as of this encounter
--- OUTSIDE RECORDS SUMMARY | 2024-10-16 16:37 | XMS_ITS | Encounter Summary ---
Author Organization [employer] [facility] Address [address] [place] [address] 7t [place] [address] Care Team Providers Care Tanning Consultant Name Role Phone Name, Johann CARRERA Primary Care Provider [phone] Reason for Visit * Reason Comments Med Refill Encounter Details Date Type Department Care Team (Late st Contact Info) Description 12/21/2022 Refill [facility] MEDICINE 230 [place] [address] Name, MD Johann [address] [place] [address] Type 2 diabetes mellitus without complication, without long-term current use of insulin ([facility]) Social History Tobacco Use Types Packs/Day Years [...] Description 10/27/2024 11:15 AM EDT Office Visit [facility] OPTOMETRY [address] [place] [address] TarkaRaya, OD 267 [place] [address] 01/06/2025 10:45 AM EDT Office Visit [facility] MEDICINE 230 [place] [address] Name, MD Johann 230 [place] [address] documented as of this encounter Visit Diagnoses Diagnosis Type 2 diabetes mellitus without complication, without long-term current use of insulin ([facility]) documented in this encounter Care Teams Tanning Consultant Relationship Specialty Start Date End Date Name, MD Johann [address] [place] [address] PCP - General Family Medicine 10/22/15 documented as of this encounter
--- OUTSIDE RECORDS SUMMARY | 2024-10-16 16:38 | XMS_ITS | Encounter Summary ---
Author Organization [employer] Address [address] [facility] [address] 7t [place] [address] Care Team Providers Care Independent Crop Consultant Name Role Phone Name, Johann CARRERA Primary Care Provider [phone] Encounter Details Date Type Department Care Team ([facility] st Contact Info) Description 03/15/2023 Telephone [facility] MEDICINE 230 [place], [place] [phone] Name, MD Johann [address] [place] [address] Social History Tobacco Use Types Packs/Day Years Used Date Smoking Tobacco: Never Smokeless Tobacco: Never Depression Answer Date Recorded Patient Health Questionnaire-2 Score 0 10/24/2022 Sex and Gender Information Value Date Recorded Sex Assigned at Male 06/19/2022 10:21 AM EDT Legal Sex Male 10:21 AM EDT Gender Identity Male 06/19/2022 10:21 AM EDT Sexual Orientation Straight 06/19/2022 10 :21 AM EDT COVID-19 Exposure Response Date Recorded In the last 10 days, have yo u been in contact with someone who was confirmed or suspected to have Coronavirus/COVID-19? No / Unsure 02/21/2023 10:29 AM EDT documented as of this encounter Miscellaneous Notes * Telephone Encounter - Nova Peters - 03/15/2023 2:43 PM EDT Paraprofessional Aide refaxed referral to [phone]. * Telephone Encounter - Kirstin Yoder RN - 03/15/2023 11:04 AM EDT TC placed to Dr. Krishnan's office at [facility] ([phone]), they report they only received 1 page of referral just listing pt. Dx. And demographic information. They are requesting office visit note from when pt. Was referred as well as face sheet including insurance information along with referral. Please fax to [phone], thank you! * Telephone Encounter - Doris Roman - 03/15/2023 9:36 AM EDT Tc from pt states Dr Krishnan is requesting more information on DX for hand specialist referral. Fax to [phone]. documented in this encounter Plan of Treatment Upcoming Encounters Date Type Department Care Team (Late st Contact Info) Description 10/27/2024 11:15 AM EDT Office Visit [facility] OPTOMETRY [address] [place] [address] Raya Jordan, OD 267 [place] [address] 01/06/2025 10:45 AM EDT Office Visit [facility] MEDICINE 230 [place] [address] Name, MD oJhann 230 [place] [address] documented as of this encounter Visit Diagnoses Not on filedocumented in this encounter Care Teams Independent Crop Consultant Relationship Specialty Start Date End Date Name, MD Johann [address] [place] [address] PCP - General Family Medicine 10/22/15 documented as of this encounter
--- OUTSIDE RECORDS SUMMARY | 2024-10-16 16:38 | XMS_ITS | Clinical Summary ---
Author Organization [employer] Address [address] [place] [address] [address] [place] [address] Care Team Providers Care Build Automation Engineer Name Role Phone Name, Johann CARRERA Primary Care Provider [phone] Allergies No known active allergies Medications glucose blood (FREESTYLE LITE) test stripIndication s:Type 2 diabetes mellitus without complication, without long-term current use of insulin ([facility]) TEST BLOOD SUGAR ONCE DAILY 50 strip 6 3 Active albuterol (2.5 MG/3ML) 0.083% nebulizer solutionIndicat ions:Asthma, unspecified asthma severity, unspecified whether complicated, unspecified whether persistent Take 3 mL by nebulization every 6 (six) hours. 75 mL 1 3 Active TRUEplus Lancets 33G misc TEST BLOOD SUGARS ONCE DAILY 100 each 11 3 Active Alcohol Swabs (Alcohol Prep) 70 % pads Use topically to skin once daily 100 each 11 3 Active acetaminophen (Tylenol) 500 MG tablet Take 2 tablets (1,000 mg) by mouth every 6 (six) hours if needed for moderate pain or fever for up to 25 doses. 30 tablet 4 Active cetirizine (ZyrTEC) 10 MG tabletIndicatio ns:Asthma, unspecified asthma severity, unspecified whether complicated, unspecified whether persistent TAKE 1 TABLET BY MOUTH EVERY MORNING 90 tablet 3 4 Active mometasone (Elocon) 0.1 % ointment APPLY TOPICALLY ONCE DAILY IN THE MORNING 15 g 2 4 Active fluticasone (Flonase) 50 MCG/ACT nasal sprayIndication s:Sore throat Administer 2 sprays into each nostril Once per day. Shake gently. Before first use, prime pump. After use, clean tip and replace cap. 16 g 2 5 09/10/19 26 Active omeprazole OTC (PriLOSEC OTC) 20 MG EC tabletIndicatio ns:Sore throat Take 1 tablet (20 mg) by mouth before breakfast. Do not crush, chew, or split. 30 tablet 5 09/10/19 26 Active fluticasone-gómez meterol (Advair HFA) 230-21 MCG/ACT inhalerIndicati ons:Moderate persistent asthma, unspecified whether complicated Inhale 2 puffs in the morning and at bedtime. Rinse mouth with water after use to reduce aftertaste and incidence of candidiasis. Do not swallow. 12 g 11 5 09/10/19 26 Active atorvastatin (Lipitor) 20 MG tabletIndicatio ns:Type 2 diabetes mellitus without complication, without long-term current use of insulin (CMS/HCC) Take 1 tablet (20 mg) by mouth Once per day. 90 tablet 1 5 Active montelukast (Singulair) 10 MG tabletIndicatio ns:Moderate persistent asthma, unspecified whether complicated TAKE 1 TABLET BY MOUTH AT BEDTIME 90 tablet 5 Active empagliflozin-m etFORMIN ER (Synjardy XR) 12.5-1000 MG 24 hr tabletIndicatio ns:Type 2 diabetes mellitus without complication, without long-term current use of insulin (CMS/HCC) Take 1 tablet by mouth with breakfast. 90 tablet 3 5 09/10/19 26 Active albuterol (Ventolin HFA) 108 (90 Base) MCG/ACT inhalerIndicati ons:Moderate persistent asthma, unspecified whether complicated Inhale 2 puffs every 6 (six) hours if needed for wheezing. 18 g 5 Active losartan (Cozaar) 25 MG tabletIndicatio ns:Hypertension , unspecified type Take 1 tablet (25 mg) by mouth in the morning. 90 tablet 1 5 Active sildenafil (Viagra) 50 MG tabletIndicatio ns:Erectile dysfunction, unspecified erectile dysfunction type TAKE 1 TABLET 1 HOUR BEFORE SEXUAL RELATIONS ONCE DAILY NEEDED. 10 tablet 1 Active Active Problems Problem Noted Date Diagnosed Date Viral upper respiratory tract infection 08/15/20 Assessment & Plan (08/15/2024 1:04 PM EST): Some sinus congestion, if no improvement and pharyngitis and laryngitis persist, possible sinus infection Encouraged supportive measures Sore throat 08/15/2024 Assessment & Plan (08/15/2024 11:02 AM EST): Pt with persistent sore throat, Rapid neg Will send for culture, throat notable for sig erythema and duration of symptoms, Covid/flu neg Class 2 obesity 03/03/2024 ED (erectile dysfunction) 03/03/2024 Type 2 diabetes mellitus 03/03/2024 Varicose veins of calf 03/03/2024 Sleep apnea 03/03/2024 Tear of right rotator cuff 03/03/2024 Overview (03/03/2024): Repaired at [facility] 01/2024 Hypertension 09/11/2022 History of COVID-19 09/11/2022 Moderate persistent asthma 08/29/2022 Lateral epicondylitis of left elbow 08/29/2022 Vascular insufficiency 08/29/2022 COVID-19 08/29/2022 Assessment & Plan (08/29/2022 5:25 PM EST): Patient with c/o congestion,sore throat, mild cough , fever and generalized malaise pt states symptoms started on Sunday with covid symptoms and tested positive on Sunday by home rapid test. pt denies known exposures, known high fevers, rash, sob, chest pain, vomiting, or other associated symptoms. pt requesting Paxlovid Discussed with him interaction of Paxlovid with Atorvastatin and Pulmicort. Advised to NOT to take both of these medications while taking the Paxlovid Given his Hx of Asthma and Diabetes he is at high risk and would benefit from Paxlovid. Last Scr. witin normal range Pt to call us if symptoms do not improve or worsen or if he is to experience sob. 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 Tobacco dependence syndrome 02/01/2012 Encounters Date Type Department Care Team Description 10/10/2024 Telephone [facility] [address] [place] [phone] Pepito Zhu [place] november recalls 09/10/2024 9:30 AM EST Office Visit [facility] [address] [place] [phone] Johann Gilbert MD Type 2 diabetes mellitus without complication, without long-term current use of insulin ([facility]) (Primary Dx); Screening for prostate cancer; Sore throat; Moderate persistent asthma, unspecified whether complicated; Erectile dysfunction, unspecified erectile dysfunction type; Hypertension, unspecified type 09/02/[address] [phone] Pepito Zhu [place] 09/02/2024 Refill [facility] [address] [place] [phone] Johann Gilbert MD Moderate persistent asthma, unspecified whether complicated 08/29/[address] [phone] Johann Gilbert MD Results 08/19/2024 9:20 AM EST Office Visit [facility] [address] [place] [phone] Brandy Yap ANP Sore throat (Primary Dx); Gastroesophageal reflux disease, unspecified whether esophagitis present 08/18/2024 Telephone [facility] [address] [place] [phone] Johann Gilbert MD Change PCP 08/18/2024 Telephone [facility] [address] [place] [phone] Lanie Campbell, line prep cook Orders 08/17/2024 Refill [facility] [address] [place] [phone] Name, MD Johann Erectile dysfunction, unspecified erectile dysfunction type 08/15/2024 10:15 AM EST Office Visit [facility] [address] [facility] [place] [address] Magdalena Jones NP Viral upper respiratory tract infection (Primary Dx); Sore throat 08/14/2024 Telephone [facility] [address] [facility] [place] [address] NameJohann MD Nurse Triage from Last 3 Months Immunizations Name Administration Dates Next Due Hep A, Adult 09/22/2011,12/09/2010 Hep B, adult 09/22/2011,02/06/2011,12/09/2010 Influenza Injectable Quadriv alant Preservative Free IIV4 MDCK 06/06/2023 Influenza injectable quadriv alent IIV4 with preservative 10/22/2019 Influenza injectable quadriv alent preservative free 05/04/2022,04/21/2020,06/13/2018,08/03,05/31/2015 Influenza, IIV3, injectable 05/18/2021, 4 Influenza, Split (incl. sparkle fied surface antigen) 08/21/2013 Influenza, seasonal, injecta ble, preservative free 07/07/2024 Pneumococcal Conjugate PCV 20 07/20/2023 Pneumococcal Polysaccharide PPSV23 10/02/2011 Tdap 07/20/2023,09/22/2011 Zoster, Recombinant 01/27/2020,10/22/2019 Social History Tobacco Use Types Packs/Day Years Used Date Smoking Tobacco: Former Cigarettes Smokeless Tobacco: Never Tobacco Cessation:Counseling Given: Not Answered Alcohol Use Standard Drinks/Week Comments Yes 10 [...] Orientation Straight 06/19/2022 10 :21 AM EDT Last Filed Vital Signs Vital Sign Reading Time Taken Comments Blood Pressure 133/78 09/10/2024 9:49 AM EST Pulse 70 09/10/2024 9:49 AM EST Temperature 35.6 ??C (96 ??F) 09/10/2024 9:49 AM EST Respiratory Rate 16 09/10/2024 9:49 AM EST Oxygen Saturation 97% 09/10/2024 9:49 AM EST Inhaled Oxygen Concentration - - Weight 108 kg (237 lb) 09/10/2024 9:49 AM EST Height 170.2 cm (5' 7 ) 09/10/2024 9:49 AM EST Body Mass Index 37.12 09/10/2024 9:49 AM EST Plan of Treatment Upcoming Encounters Date Type Department Care Team (Late st Contact Info) Description 10/27/2024 11:15 AM EDT Office Visit [facility] [address] [place] [address] Raya Jordan, OD [address] [place] [address] 01/06/2025 10:45 AM EDT Office Visit [facility] [address] [place] [address] Name, MD Johann [address] [place] [address] Health Maintenance Due Date Last Done Comments CT Colonography 1964 FIT DNA/Cologuard 1964 FIT 1964 FOBT 1964 HIV Screening 1964 Sigmoidoscopy 1964 Eye Exam 1974 Hepatitis C Screening 1982 Lipid Panel 07/27/2024 07/27/2023, 09/21, 01/05/2022, Additional history exists Depression Screening 11/19/2024 11/20/2023, 11/20/19 24 SDOH Screening 11/19/2024 11/20/2023 Alcohol/Substance Use Screening 03/03/2025 03/03/2024 Diabetes: Urine Protein Screening 03/03/2025 03/03/2024, 07/27/2023, 01/05/2022, Additional history exists Diabetes: Hemoglobin A1C 03/10/2025 025, 03/03/2024, 04/03/2023, Additional history exists Diabetes: Foot Exam 09/10/2025 09/10/2024, 09/10/2024, 09/10/2024, Additional history exists Tobacco Screening 09/10/2025 09/10/2024 Colonoscopy 05/11/2026 05/11/2016 Colorectal Cancer Screening 05/11/2026 DTaP/Tdap/Td Vaccines (3 - Td or Tdap) 07/20/2033 07/20/2023, 09/22/2011 RSV Patients and Patients Aged 60 years or older (1 - 1-dose 75+ series) 12/25/2039 Hepatitis A Vaccines Completed 09/22/2011, 12/10/19 11 Hepatitis B Vaccines Completed 09/22/2011, 02/06/2011, 12/09/2010 Zoster Vaccines Completed 01/27/2020, 10/22/2019 Pneumococcal Vaccine: 50+ Years Completed 07/20/2023, 10/02/2011 COVID-19 Vaccine Completed 07/07/2024, 08/2021, 07/27/2021, Additional history exists Influenza Vaccine Completed 07/07/2024, , 05/04/2022, Additional history exists HIB Vaccines Aged Out No longer eligi ble based on patient's age to complete this topic HPV Vaccines Aged Out No longer eligi ble based on patient's age to complete this topic IPV Vaccines Aged Out No longer eligi ble based on patient's age to complete this topic Meningococcal Vaccine Aged Out No les gurinder eligible based on patient's age to complete this topic RSV under 20 months Aged Out No longe r eligible based on patient's age to complete this topic Rotavirus Vaccines Aged Out No longer eligible based on patient's age to complete this topic Procedures Procedure Name Priority Date/Time Associated Diagnosis Comments CBC WITH AUTO DIFFERENTIAL Routine 10/16/2024 1:49 PM EST Type 2 diabetes mellitus without complication, without long-term current use of insulin ([facility]) POCT GLUCOSE Routine 09/10/2024 9:57 AM EST Type 2 diabetes mellitus without complication, without long-term current use of insulin ([facility]) POCT GLYCATED HEMOGLOBIN, TOTAL Routine 09/10/2024 9:57 AM EST Type 2 diabetes mellitus without complication, without long-term current use of insulin ([facility]) CULTURE, THROAT Routine 08/19/2024 9:21 AM EST Sore throat POCT INFLUENZA A (ID NOW RAPID MOLECULAR) Routine 08/19/2024 9:17 AM EST Sore throat POC GOLDMAN ID NOW STREP A Routine 08/19/2024 9:15 AM EST Sore throat POCT RAPID COVID ANTIGEN Routine 08/19/2024 9:14 AM EST Sore throat POC GOLDMAN ID NOW STREP A Routine 08/15/2024 11:52 AM EST Viral upper respiratory tract infection POCT INFLUENZA A (ID NOW RAPID MOLECULAR) Routine 08/15/2024 11:52 AM EST Viral upper respiratory tract infection POCT INFLUENZA B (ID NOW RAPID MOLECULAR) Routine 08/15/2024 11:52 AM EST Viral upper respiratory tract infection POCT RAPID COVID ANTIGEN Routine 08/15/2024 11:52 AM EST Viral upper respiratory tract infection ALBUMIN, RANDOM URINE W/CREATININE Routine 03/03/2024 1:58 PM EDT Type 2 diabetes mellitus without complication, without long-term current use of insulin ([facility]) LIPID PANEL, STANDARD Routine 07/27/2023 11:19 AM EST Type 2 diabetes mellitus without complication, without long-term current use of insulin ([facility]) Hypertension, unspecified type HM COLONOSCOPY Routine 05/11/2016 11:38 AM EDT from Last 3 Months or Most Recently Relevant to Health Maintenance Results * (ABNORMAL) CBC auto differential (10/16/2024 1:49 PM EST) White Blood Count 6.9 4.8 - 10.8 X10*3/uL [facility] Red Blood Count 5.46 4.60 - 5.80 X10*6/uL [facility] Hemoglobin 15.6 14.0 - 18.0 g/dl [facility] Hematocrit 49.4 42.0 - 52.0 % [facility] Mean Corpuscular Volume 90.5 80.0 - 98.0 fL [facility] Mean Corpuscular Hemoglobin 28.6 27.0 - 33.0 pg [facility] Mean Corpuscular HGB Conc 31.6 31.0 - 36.0 g/dl [facility] Red Cell Distribution Width 14.2 11.0 - 16.0 % [facility] Platelet Count 264 160 - 400 X10*3/uL [facility] Mean Platelet Volume 10.3 9.4 - 12.4 fL [facility] Neutrophils Percent Auto 55.7 45 - 73 % [facility] Imm Gran Pct Auto 0.4 0.0 - 0.4 % [facility] Lymphocytes Percent Auto 26.8 20 - 40 % [facility] Monocytes Percent Auto 12.3(H) 2 - 11 % [facility] Eosinophils Percent Auto 3.9 0 - 4 % [facility] Basophils Percent Auto 0.9 0 - 2 % [facility] NRBC Pct Auto 0.0 0.0 - 0.2 /100WBC [facility] Neutrophils Absolute Auto 3.8 2.0 - 8.3 x10*3/uL [facility] Imm Gran Abs Auto 0.03 0.00 - 0.03 X10*3/uL [facility] Lymphocytes Absolute Auto 1.9 1.2 - 4.9 X10*3/uL [facility] Monocytes Absolute Auto 0.9 0.1 - 1.2 X10*3/uL [facility] Eosinophils Absolute Auto 0.3 0.0 - 0.4 X10*3/uL [facility] Basophils Absolute Auto 0.1 0.0 - 0.2 X10*3/uL [facility] NRBC Abs Auto 0.000 0.0 - 0.012 X10*3/uL [facility] Blood Venous blood specimen / Unknown 10/16/2024 1:49 PM EST 10/16/2024 4:11 PM EST us Johann Name LAB BLOOD ORDERABLES Final Resul t [facility] [address] [place] [phone] * (ABNORMAL) POCT HGB A1C (09/10/2024 9:57 AM EST) Hemoglobin A1C 6.9(A) 4.0 - 6.0 % [facility] Media Lot # [id number] Lot# Expiration Date [id number] Blood 09/10/2024 9:57 AM EST us Johann Gilbert MD POINT OF CARE TEST ENTER/EDIT OR DERABLES Final Result * POCT Glucose (09/10/2024 9:57 AM EST) Glucose Blood, POC 160 60 - 200 mg/dL [facility] Media Lot # [id number] Lot# Expiration Date 530[address] Blood Capillary blood specimen / Unknown 09/10/2024 9:57 AM EST us Johann Gilbert MD POINT OF CARE TEST ENTER/EDIT OR DERABLES Final Result * Culture, Throat (08/19/2024 9:21 AM EST) Throat Structure of anterior portion of neck / Unknown 08/19/2024 9:21 AM EST 08/19/2024 2:05 PM EST Comment:Throat Narrative [facility] - 08/21/2024 11:18 AM EST Throat Culture No Group A Beta-hemolytic Streptococci isolated. Specimen Source: Throat us Brandy DURAN LAB MICROBIOLOGY - GENERAL ORDER CAROLYN Final Result Performing Organization Address [facility] de Phone Number [facility] [address] [place] [phone] * (ABNORMAL) POCT Rapid Influenza A GOLDMAN ID NOW (08/19/2024 9:17 AM EST) Only the most recent of2 resultswithin the time period is included. Influenza A Negative Negative, Indeterminate [facility] QC Media Lot # [id number] [facility] Lot# Expiration Date 7, [facility] Swab 08/19/2024 9:17 AM EST us Brandy Yap [facility] POINT OF CARE TEST ENTER/EDIT OR DERABLES Final Result Performing Organization Address [facility] Co de Phone Number [facility] [address] [place] [address] [place] [phone] * POCT Rapid Strep A GOLDMAN ID NOW (08/19/2024 9:15 AM EST) Only the most recent of2 resultswithin the time period is included. [facility] Rapid Strep A Screen Negative Negative, None Detected QC Media Lot # [id number] Lot# Expiration Date Swab 08/19/2024 9:15 AM EST Brandy Yap ANP POINT OF CARE TEST ENTER/EDIT OR DERABLES Final Result * (ABNORMAL) POCT Rapid Covid-19 BinaxNOW (08/19/2024 9:14 AM EST) Only the most recent of2 resultswithin the time period is included. [facility] Rapid COVID Ag Negative [facility] Media Lot # [id number] Lot# Expiration Date Swab 08/19/2024 9:14 AM EST Brandy Fracisco ANP POINT OF CARE TEST ENTER/EDIT OR DERABLES Final Result * POCT Rapid Influenza B GOLDMAN ID NOW (08/15/2024 11:52 AM EST) [facility] Influenza B Negative Negative, Indeterminate [facility] QC Media Lot # [id number] [facility] Lot# Expiration Date [facility] Swab 08/15/2024 11:5 2 AM EST Magdalena Jones NP POINT OF CARE TEST ENTER/EDIT OR DERABLES Final Result [facility] [address] [place] [phone] * (ABNORMAL) Albumin, Random Urine W/Creatinine (03/03/2024 1:58 PM EDT) [facility] Creatinine, Urine 153.91 mg/dL [facility] Microalbumin Urine 63.0 mg/L [facility] Microalbum Creatinine Ratio Ur 40.9(H) <30 ug/mg cr [facility] Comment:Albumin/Creatinine R at Reference Ranges: Normal: < 30 ug/mg creatinine Microalbuminuria: 30 - 300 ug/mg creatinineClinical Albuminuria: > 300 ug/mg creatinine Urine (Urine, Random) 03/03/2024 1:58 PM EDT 03/03/2024 4:03 PM EDT us Johann Gilbert MD LAB URINE ORDERABLES Final Resul t [facility] [address] [place] [phone] * Lipid Panel, Standard (07/27/2023 11:19 AM EST) Triglycerides 146 <150 mg/dL [facility] Comment:Desirable Triglyceri de: less than 150 mg/dLBorderline High Triglyceride 150-199 mg/dLHigh Triglyceride: 200-499 mg/dLVery High Triglyceride: greater than or equal to 5OO mg/dL Cholesterol 165 <200 mg/dL [facility] Comment:Desirable Cholestero l: less than 200 mg/dLBorderline High Cholesterol: 200-239 mg/dLHigh Cholesterol: greater than 239 mg/dL LDL Cholesterol Calculated 92 <100 mg/dL [facility] Comment:Desirable LDL: less than 100 mg/dLNear Optimal/Above Optimal LDL: 110- 129 mg/dLBorderline High LDL: 130-159 mg/dLHigh LDL: 160-189 mg/dLVery High LDL: greater than or equal to 190 mg/dL HDL Cholesterol 44 >40 mg/dL [facility] Comment:Desirable HDL: great er than 40 mg/dL Note: This HDL assay may give artificially low results in patients with liver disease. Blood Venous blood specimen / Unknown 07/27/2023 11:19 AM EST 07/27/2023 1:46 PM EST us Johann Gilbert MD LAB BLOOD ORDERABLES Final Resul t [facility] [address] [place] [phone] * Hm Colonoscopy (05/11/2016 11:38 AM EDT) Colonoscopy Normal Normal Narrative Katarina Frias - 05/11/2016 11:38 AM EDT Recommended 10 year follow up us Historical Provider HEALTH MAINTENANCE Final Result from Last 3 Months or Most Recently Relevant to Health Maintenance Insurance * Guarantor: Jacques Hernandez Account Type Relation to Patient Date of Phone Billing Address Personal/Family Self [address] Care Teams Build Automation Engineer Relationship Specialty Start Date End Date Name, MD Johann [address] [place] [phone] PCP - General Family Medicine 10/22/15
--- OUTSIDE RECORDS SUMMARY | 2024-10-16 16:38 | XMS_ITS | Clinical Summary ---
Author Organization 175 [facility] Address 175 [place] [address] Phone Care Team Providers Care Hospital Monitor Name Role Phone Josh Prado MD Primary Care Provid er Allergies No known active allergies Medications acetaminophen (TYLENOL) 500 mg tablet Take 1 tablet (500 mg total) by mouth every 6 (six) hours if needed. Active aspirin 81 mg EC tablet Take 1 tablet (81 mg total) by mouth 1 (one) time each day. Active ibuprofen (ADVIL,MOTRIN) 600 mg tablet Take 1 Tablet by mouth every 6 hours as needed. Active albuterol HFA (PROAIR HFA ; PROVENTIL HFA ; VENTOLIN HFA) 90 mcg/actuation inhaler Inhale 2 puffs by mouth every 4 (four) hours if needed. Active atorvastatin (LIPITOR) 20 mg tablet Take 1 tablet (20 mg total) by mouth 1 (one) time each day. Active cetirizine (ZyrTEC) 10 mg tablet Take 1 tablet (10 mg total) by mouth 1 (one) time each day. Active losartan (COZAAR) 25 mg tablet Take 1 tablet (25 mg total) by mouth 1 (one) time each day. Active mometasone (ELOCON) 0.1 % ointment Apply topically 2 times daily. Active montelukast (SINGULAIR) 10 mg tablet Take 1 Tablet by mouth at bedtime. Active empagliflozin-m etformin (Synjardy) 12.5-1,000 mg tablet Take by mouth. Activ e sildenafiL (VIAGRA) 50 mg tablet Take 1 tablet (50 mg total) by mouth as needed. Active fluticasone propion/salmete rol (ADVAIR DISKUS INHL) Inhale into the lungs. Active Encounters Date Type Department Care Team Description 08/06/2024 1:30 PM EST Office Visit Orthopedic Surgery [facility] 160 175 [facility] 160 [place] [phone] Lamont Michaels MD S/P rotator cuff repair (Primary Dx) from Last 3 Months Surgical History Surgery Date Site/Laterality Comments ROTATOR CUFF REPAIR 02/07/2024 Right PROCEDURE: HISTORICAL ROTATOR CUFF REPAIR; COMMENT: Right shoulder rotator cuff repair and augmentation. Subacromial decompression. Labral debridement. Biceps tenodesis. Medical History Medical History Date Comments Type 2 diabetes mellitus wit hout complications (CMS/HCC) DX:Type 2 diabetes mellitus without complications (HCC) Mixed hyperlipidemia DX:Mixed hy perlipidemia Essential (primary) hypertension DX:Essential (primary) hypertension Social History Tobacco Use Types Packs/Day Years Used Date Smoking Tobacco: Never Assessed Sex and Gender Information Value Date Recorded Sex Assigned at Not on file Legal Sex Male 5:43 AM EST Gender Identity Not on file Sexual Orientation Not on file Obstetrics History Last Filed Vital Signs Vital Sign Reading Time Taken Comments Blood Pressure - - Pulse - - Temperature - - Respiratory Rate - - Oxygen Saturation - - Inhaled Oxygen Concentration - - Weight 104 kg (230 lb) 08/06/2024 1:29 PM EST Height 170.2 cm (5' 7 ) 08/06/2024 1:29 PM EST Body Mass Index 36.02 08/06/2024 1:29 PM EST Plan of Treatment Upcoming Encounters Date Type Department Care Team (Late st Contact Info) Description 02/04/2025 1:00 PM EDT Office Visit Orthopedic Surgery [facility] [address] [phone] Lamont Michaels MD 175 [facility] 160 [place] [address] Health Maintenance Due Date Last Done Comments Diabetes: Annual GFR (Glomerular Filtration Rate) 1964 Diabetes: Annual Foot Exam 1974 Diabetes: Annual Retina Eye Exam 1974 Colorectal Cancer Screening: Colonoscopy 09/18/2023 HIV Screening 09/18/2023 Hepatitis C Screening 09/18/2023 Social Influencers of Health Screening 09/18/2023 Diabetes: Annual Urine Albumin-Creatinine Ratio (uACR) 08/06/2024 Hypertension/CHF/CAD Annual BMP Blood Test 08/06/2024 Diabetes: Blood Sugar Control Test (HGBA1C) 09/03/2024 03/03/2024 Depression Screening 11/19/2024 11/20/2023 Cholesterol Screening (Lipid Panel) 07/27/2028 07/27/2023 DTaP,Tdap,and Td Vaccines (3 - Td or Tdap) 07/20/2033 07/20/2023, 09/22/2011 RSV Immunization Patients 60+ Years Old (1 - 1-dose 75+ series) 12/25/2039 Hepatitis A Vaccines Completed 09/22/2011, 12/10/19 Hepatitis B Vaccines Completed 09/22/2011, 02/06/2011, 12/09/2010 Zoster Vaccines Completed 01/27/2020, 10/22/2019 Pneumococcal Vaccine: 50+ Years Completed 07/20/2023, 10/02/2011 Pneumococcal Vaccine: Pediatrics (0 to 5 Years) and At-Risk Patients (6 to 64 Years) Completed 07/20/2023, 10/02/2011 COVID-19 Vaccine Completed 07/07/2024, [...] on patient's age to complete this topic MMR Vaccines Aged Out No longer eligi ble based on patient's age to complete this topic Meningococcal ACWY Vaccine Aged Out N o longer eligible based on patient's age to complete this topic Meningococcal B Vacine Aged Out No lo nger eligible based on patient's age to complete this topic RSV Immunization Patients Under 20 months Aged Out No longer eligible based on patient's age to complete this topic Varicella Vaccines Aged Out No longer eligible based on patient's age to complete this topic Insurance MEDICAID - [place] Care Teams Hospital Monitor Relationship Specialty Start Date End Date Josh Prado MD [address] [place] [phone] PCP - General 10/28/12
[2024-10-16 16:42] LABS: Alanine Aminotransferase 56 U/L (0-40); Albumin Level 4.2 g/dL (3.5-5.0); Alkaline Phosphatase 67 U/L (39-117); Anion Gap 12 (12-20); Aspartate Amino Transferase 40 U/L (5-37); Bilirubin Total 0.6 mg/dL (0.0-1.0); Blood Urea Nitrogen 13 mg/dL (9-16); Calcium 9.6 mg/dL (8.4-10.2); Carbon Dioxide 27 mmol/L (22-29); Chloride 103 mmol/L (96-108); Cholesterol 160 mg/dL (<200); Estimated Glomerular Filt Rate > 60; Glucose Random 110 mg/dL (60-115); HDL Cholesterol 42 mg/dL (>40); LDL Cholesterol Calculated 95 mg/dL (<100); Potassium 4.2 mmol/L (3.3-5.1); Sodium 138 mmol/L (135-145); Total Protein 8.7 g/dL (6.5-8.0); Triglycerides 118 mg/dL (<150)
[2024-10-16 17:13] LABS: Creatinine Urine 89.57 mg/dL; Microalbum/Creatinine Ratio Ur 56.9 ug/mg cr (<30)
== END 2024-10-16 13:48 | disposition home or self-care (01) ==
LOC: HO.HHCL 13:47
PROVIDERS: Visit Provider Internal Medicine Geriatric Medicine
DX: E11.9 Type 2 diabetes mellitus without complications (principal); Z12.5 Encounter for screening for malignant neoplasm of prostate
CPT/HCPCS: 36415; 80053; 80061; 82043; 82570; 84153; 85025

== ENCOUNTER 2025-01-14 14:07 | Outpatient (REF) | payer MEDICAID, SELFPAY ==
--- OUTSIDE RECORDS SUMMARY | 2025-01-14 15:02 | XMS_ITS | Encounter Summary ---
Author Organization [employer] Address [address] [place] [address] [address] [place] [address] Care Team Providers Care Button Decorating Machine Operator Name Role Phone Name, Johann CARRERA Primary Care Provider [phone] Reason for Visit * Reason Comments Med Refill Encounter Details Date Type Department Care Team (Late st Contact Info) Description 12/20/2022 Refill [facility] [address] [place] [id number] Name, MD Johann [address] [place] [id number] Social History Tobacco Use Types Packs/Day Years [...] as of this encounter Plan of Treatment Not on file documented as of this encounter Visit Diagnoses Not on filedocumented in this encounter Care Teams Button Decorating Machine Operator Relationship Specialty Start Date End Date Name, MD Johann [address] [place] [address] PCP - General Family Medicine 10/22/15 documented as of this encounter
[2025-01-14 16:40] LABS: Alanine Aminotransferase 51 U/L (0-40); Albumin Level 4.1 g/dL (3.5-5.0); Alkaline Phosphatase 69 U/L (39-117); Anion Gap 10 (12-20); Aspartate Amino Transferase 38 U/L (5-37); Bilirubin Total 0.6 mg/dL (0.0-1.0); Blood Urea Nitrogen 9 mg/dL (9-16); Calcium 9.1 mg/dL (8.4-10.2); Carbon Dioxide 31 mmol/L (22-29); Chloride 102 mmol/L (96-108); Estimated Glomerular Filt Rate > 60; Glucose Random 118 mg/dL (60-115); Potassium 3.9 mmol/L (3.3-5.1); Sodium 139 mmol/L (135-145); Total Protein 7.7 g/dL (6.5-8.0)
[2025-01-14 16:45] LABS: Creatinine Urine 73.44 mg/dL; Microalbum/Creatinine Ratio Ur 16.3 ug/mg cr (<30)
[2025-01-15 08:00] LABS: ~Hepatitis C Antibody Nonreactive (Nonreactive)
== END 2025-01-14 14:08 | disposition home or self-care (01) ==
LOC: HO.HHCL 14:07
PROVIDERS: Visit Provider Internal Medicine Geriatric Medicine
DX: Z11.59 Encounter for screening for other viral diseases (principal); R74.01 Elevation of levels of liver transaminase levels; E11.29 Type 2 diabetes mellitus with other diabetic kidney complication; R80.9 Proteinuria, unspecified
CPT/HCPCS: 36415; 80053; 82043; 82570; 86803

== ENCOUNTER 2025-03-31 09:52 | Outpatient (REF) | payer MEDICAID, SELFPAY ==
--- NOTE | ~2025-03-31 | XR_ITS ---
EXAMINATION: XR ANKLE 3 OR MORE VIEWS RIGHT HISTORY: pain COMPARISON: There are no prior studies available for comparison. FINDINGS: Three views of the right ankle are submitted. There is a sclerotic focus in the distal tibial metaphysis which could represent a healed nonossifying fibroma. There is no fracture or dislocation. There is mild degenerative change of the tibiotalar joint. There are vascular calcifications. XR/XR ankle RT min 3V IMPRESSION: Mild degenerative change of the tibiotalar joint. Sclerotic focus in the distal tibial metaphysis which could represent a healed nonossifying fibroma. Electronically signed by: Roland Campbell MD 03/31/2025 10:26 AM EDT
--- OUTSIDE RECORDS SUMMARY | 2025-03-31 10:38 | XMS_ITS | Clinical Summary ---
Author Organization 175 [facility] Address 175 [place] [address] Phone Care Team Providers Care Document Image Technician Name Role Phone Josh Prado MD Primary [...] Encounters Date Type Department Care Team Description 02/04/2025 1:00 PM EDT Office Visit Orthopedic Surgery [facility] 160 175 [facility] 160 [place] [address] Lamont Michaels MD S/P rotator cuff repair (Primary Dx) from Last 3 Months Surgical History Surgery Date Site/Laterality Comments ROTATOR CUFF REPAIR 02/07/2024 Right PROCEDURE: HISTORICAL ROTATOR CUFF REPAIR; COMMENT: Right shoulder rotator cuff repair and augmentation. Subacromial decompression. Labral debridement. Biceps tenodesis. Medical History Medical History Date Comments Type 2 diabetes mellitus wit hout complications (CMS/HCC V24, CMS/HCC V28) DX:Type 2 shawn betes mellitus without complications (HCC) Mixed hyperlipidemia DX:Mixed [...] - - Weight 104 kg (230 lb) 02/04/2025 1:09 PM EDT Height 170.2 cm (5' 7 ) 08/06/2024 1:29 PM EST Body Mass Index 36.02 08/06/2024 1:29 PM EST Plan of Treatment Health Maintenance Due Date Last Done Comments Diabetes: Annual Foot Exam 1974 Diabetes: Annual Retina Eye Exam 1974 Colorectal Cancer Screening: Colonoscopy 09/18/2023 HIV Screening 09/18/2023 Social Influencers of Health Screening 09/18/2023 Diabetes: Annual Urine Albumin-Creatinine Ratio (uACR) 08/06/2024 Depression Screening 08/20/2024 RSV Immunization Adult Patients (1 - Risk 60-74 years 1-dose series) 2024 Diabetes: Blood Sugar Control Test (HGBA1C) 03/10/2025 09/10/2024, 03/03/2024 Influenza Vaccine (#1) 2025 , 06/06/2023, 05/04/2022, Additional history exists Diabetes: Annual GFR (Glomerular Filtration Rate) 01/14/2026 01/14/2025 Hypertension/CHF/CAD Annual BMP Blood Test 01/14/2026 01/14/2025 Cholesterol Screening (Lipid Panel) 10/16/2029 10/16/2024, 07/27/2023 DTaP,Tdap,and Td Vaccines (3 - Td or Tdap) 07/20/2033 07/20/2023, 09/22/2011 Hepatitis A Vaccines Aged Out 09/22/2011, 12/10/19 11 No longer eligible based on patient's age to complete this topic Hepatitis B Vaccines Completed 09/22/2011, 02/06/2011, 12/09/2010 Zoster Vaccines Completed 01/27/2020, 10/22/2019 Pneumococcal Vaccine: 50+ Years Completed 07/20/2023, 10/02/2011 COVID-19 Vaccine Completed 07/07/2024, 08/2021, 07/27/2021, Additional history exists Hepatitis C Screening Completed 01/14/2025 HIB Vaccines Aged Out No longer eligi [...] age to complete this topic Meningococcal B Vaccine Aged Out No l onger eligible based on patient's age to complete this topic RSV Immunization Patients Under 20 months Aged Out No longer eligible based on patient's age to complete this topic Varicella Vaccines Aged Out No longer eligible based on patient's age to complete this topic Procedures Procedure Name Priority Date/Time Associated Diagnosis Comments XR SHOULDER 2+ VIEWS RIGHT Routine 02/04/2025 1:08 PM EDT S/P rotator cuff repair from Last 3 Months Results * XR Shoulder 2+ Views Right (02/04/2025 1:08 PM EDT) Anatomical Region Laterality Modality Upper Extremities, Shoulder Right Comp uted Radiography Narrative 02/04/2025 1:19 PM EDT Shoulder x-rays February 04, 2025.AP, Grashey, Y lateral, axillary views. No acute osseous abnormalities. Postsurgical changes. Lamont Michaels MD IMG XR PROCEDURES Final Result from Last 3 Months Insurance MEDICAID - [place] Care Teams Document Image Technician Relationship Specialty Start Date End Date Josh Prado MD [address] [place] [phone] PCP - General 10/28/12
== END 2025-03-31 09:53 | disposition home or self-care (01) ==
LOC: HO.HHCX 09:52
PROVIDERS: Visit Provider Internal Medicine
DX: M25.571 Pain in right ankle and joints of right foot (principal)
CPT/HCPCS: 73610

== ENCOUNTER → 2025-03-31 09:52 | Outpatient (BNV) | payer MEDICAID, SELFPAY | PROVIDERS: Visit Provider Radiology Diagnostic Radiology | DX: M25.571 Pain in right ankle and joints of right foot (principal) | CPT/HCPCS: 73610 ==

== ENCOUNTER 2025-04-23 10:51 | Outpatient (REF) | payer MEDICAID, SELFPAY ==
--- OUTSIDE RECORDS SUMMARY | 2025-04-23 10:00 | XMS_ITS | Encounter Summary ---
Author Organization [employer] Address [address] [facility] 7[address] [place] [address] Care Team Providers Care Glazing Machine Operator Name Role Phone Name, Johann CARRERA Primary Care Provider [phone] Reason for Visit * Reason Comments Pre-op Exam Puncto plasty Encounter Details Date Type Department Care Team ([facility] st Contact Info) Description 04/23/2025 10:00 AM EDT Office Visit [facility] [address] [place] [address] Samantha Mei, SHOE SALESMAN [address] [place] [address] Moderate persistent asthma, unspecified whether complicated (Primary Dx); Sleep apnea, unspecified type; Primary hypertension; Type 2 diabetes mellitus with microalbuminuria, without long-term current use of insulin ([facility]); Pre-op evaluation Social History Tobacco Use Types Packs/Day Years [...] Answer Date Recorded Patient Health Questionnaire-9 Score 1 01/06/2025 Patient Health Questionnaire-9 Score 1 01/06/2025 Last PHQ-9: Questionnaire Data Not on file 0 01/06/2025 Housing Stability Answer Date Recorded What is your housing situation today? I have sorin zarate 01/06/[address] you li ve. Do you have problems with any of the following? None of the above 01/06/2025 Food Insecurity Answer Date Recorded Within the past 12 months, y ou worried that your food would run out before you got money to buy more: Never True 01/06/2025 Within the past 12 months,th e food you bought just didn't last and you didn't have enough money to get more: Never True Transportation Answer Date Recorded In the past 12 months, has l ack of transportation kept you from medical appts, meetings, work or from getting things needed for daily living? No 01/06/2025 Utilities Answer Date Recorded In the past 12 months, has t he electric, gas, oil or water company threatened to shut off services in your home? No 01/06/2025 Depression Answer Date Recorded Patient Health Questionnaire-2 Score 0 01/06/2025 Internet Access Answer Date Recorded Internet Access Q1 Yes 01/06/2025 Internet Access Q2 Not on file 01/06/2025 Sex and Gender Information Value Date Recorded Sex Assigned at Male 06/19/2022 10:21 AM EDT Legal Sex Male 10:21 AM EDT Gender Identity Male 06/19/2022 10:21 AM EDT Sexual Orientation Straight 06/19/2022 10 :21 AM EDT documented as of this encounter Last Filed Vital Signs Vital Sign Reading Time Taken Comments Blood Pressure 132/88 04/23/2025 11:16 AM EDT Pulse 80 04/23/2025 10:00 AM EDT Temperature 36.6 C (97.9 F) 04/23/2025 10:00 AM EDT Respiratory Rate 12 04/23/2025 10:00 AM EDT Oxygen Saturation 98% 04/23/2025 10:00 AM EDT Inhaled Oxygen Concentration - - Weight 104 kg (229 lb) 04/23/2025 10:00 AM EDT Height 170.2 cm (5' 7 ) 04/23/2025 10:00 AM EDT Body Mass Index 35.87 04/23/2025 10:00 AM EDT documented in this encounter Progress Notes * Samantha Mei CNP - 04/23/2025 10:00 AM EDT Jacques Jacobs is a 59 y.o. male who presents to the office for a preoperative evaluation. Date of Surgery: 04/30/25 Surgical procedure being done: Puncto plasty Type of anesthesia: general anesthesia Lab needed: Yes EKG: Yes Surgeon's name: Jazzmine Facility name: [facility] Surgeon's office number: [phone] Surgeon's office fax number: [phone] Chronic Medical Conditions: Problem List[1] -asthma is controlled,adherent to inhaler and oral meds. -Pt T2DM is currently controlled with last A1c of 6.9 08/2024. Pt on synjardy, ARB, and aspirin 81mg. No insulin use. Denies episodes of hypoglycemia. -HTN controlled pt adherent to medications. No microalbuminuria as of 12/2024. Allergies: Allergies[2] Review of Systems Denies personal or family history of bleeding diathesis or life-threatening anesthetic reactions Denies kidney disease, thyroid disease, liver disease. Positive history of asthma and T2DM. Denies history of stroke. Denies problems with pain, stiffness, or arthritis in neck or jaw. Positive history of sleep apnea. Denies allergy to tape, iodine, or latex Able to walk up a flight of stairs or run across a street without needing to stop to catch breath No known cardiac history, denies history of irregular heartbeat No history of alcohol withdrawal; not a regular, heavy drinker. OBJECTIVE Visit Vitals BP 132/88 Pulse 80 Temp 97.9 ??F (36.6 ??C) (Oral) Resp 12 Ht 5' 7 (1.702 m) Wt 229 lb (104 kg) SpO2 98% BMI 35.87 kg/m?? Smoking Status Former BSA 2.22 m?? Physical Exam Vitals reviewed. Constitutional: General: He is not in acute distress. Appearance: Normal appearance. He is not ill-appearing, toxic-appearing or diaphoretic. HENT: Head: Normocephalic and atraumatic. Cardiovascular: Rate and Rhythm: Normal rate and regular rhythm. Pulses: Normal pulses. Heart sounds: Normal heart sounds. No murmur heard. No friction rub. No gallop. Pulmonary: Effort: Pulmonary effort is normal. No respiratory distress. Breath sounds: Normal breath sounds. No stridor. No wheezing, rhonchi or rales. Chest: Chest wall: No tenderness. Musculoskeletal: Right lower leg: No edema. Left lower leg: No edema. Neurological: General: No focal deficit present. Mental Status: He is alert and oriented to person, place, and time. Mental status is at baseline. Psychiatric: Mood and Affect: Mood normal. Behavior: Behavior normal. Thought Content: Thought content normal. Judgment: Judgment normal. Problem List Items Addressed This Visit Moderate persistent asthma - Primary Hypertension Sleep apnea Other Visit Diagnoses Type 2 diabetes mellitus with microalbuminuria, without long-term current use of insulin (CMS/[facility]) Relevant Medications omega-3 (FISH OIL) 300 MG capsule Other Relevant Orders POCT A1c (Completed) POCT glucose manually resulted (Completed) Pre-op evaluation Relevant Orders CBC auto differential Basic Metabolic Panel Hepatic Function Panel Albumin, Random Urine W/Creatinine Hemoglobin A1c ECG 12 lead (Completed) Prothrombin Time-INR PREOPERATIVE ASSESSMENT AND PLAN: -H&P completed -Medication list reviewed with patient and up to date. -The incidence of perioperative cardiovascular events varies according to the patient risk profile,patient's functional capacity, and risk of the proposed surgery. Active cardiac conditions that are contraindications to elective surgery: Surgery-Specific Cardiac Risk: low Cardiac risk by patient profile (RCRI): Patient has 0 risk factors corresponding to 0.5risk of a major cardiac event during surgery. Functional capacity = 10 METS. The patient reports being able to walk up 1 one flight of stairs and2 blocks without stopping. This patient is at low risk for an low risk procedure. The patient is at acceptable risk for the proposed procedure. Reviewed with patient that no surgery is completely free of risk and this evaluation is to assist surgeon in accurately reviewing informed consent. Revised Cardiac Risk Index: No risk factors - 0.4% (95% CI 0.1-0.8) 1 risk factor - 1.0% (95% CI 0.5-1.4) 2 risk factors - 2.4% (95% CI 1.3-3.5) 3 or more risk factors - 5.4% (95% CI 2.8-7.9) Medication Recs: -Hold aspirin and NSAIDs 5 days before surgery -Stop empagliflozin-metformin and losartan day of surgery. 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 Knee pain Lateral epicondylitis of left elbow Microscopic hematuria Tobacco dependence syndrome Vascular insufficiency COVID-19 Asthma Hypertension History of COVID-19 Class 2 obesity ED (erectile dysfunction) Type 2 diabetes mellitus (CMS/HCC) Varicose veins of calf Sleep apnea Tear of right rotator cuff Viral upper respiratory tract infection Sore throat Acute right ankle pain [2] No Known Allergies [3] Current Outpatient Medications on File Prior to Visit Medication Sig Dispense Refill omega-3 (FISH OIL) 300 MG capsule 0 Refills, Maintenance, 01/08/24 13:05:00 EDT, Partial fill upon patient request if the prescription is for a schedule II opioid drug. acetaminophen (Tylenol) 500 MG tablet Take 2 tablets (1,000 mg) by mouth every 6 (six) hours if needed for moderate pain or fever for up to 25 doses. 30 tablet 0 albuterol (2.5 MG/3ML) 0.083% nebulizer solution Take 3 mL by nebulization every 6 (six) hours. 75 mL 1 albuterol (Ventolin HFA) 108 (90 Base) MCG/ACT inhaler INHALE 2 PUFFS BY MOUTH EVERY 6 HOURS NEEDED FOR WHEEZING 18 g 1 Alcohol Swabs (Alcohol Prep) 70 % pads Use topically to skin once daily 100 each 11 aspirin 81 MG EC tablet Take 81 mg by mouth Once per day. atorvastatin (Lipitor) 20 MG tablet Take 1 tablet (20 mg) by mouth Once per day. 90 tablet 1 cetirizine (ZyrTEC) 10 MG tablet TAKE 1 TABLET BY MOUTH EVERY MORNING 90 tablet 3 empagliflozin-metFORMIN ER (Synjardy XR) 12.5-1000 MG 24 hr tablet Take 1 tablet by mouth with breakfast. 90 tablet 3 fluticasone (Flonase) 50 MCG/ACT nasal spray Administer 2 sprays into each nostril Once per day. Shake gently. Before first use, prime pump. After use, clean tip and replace cap. 16 g 2 fluticasone-salmeterol (Advair HFA) 230-21 MCG/ACT inhaler INHALE 2 PUFFS BY MOUTH TWICE A DAY. RINSE MOUTH AFTER USE. 12 g 1 glucose blood (FREESTYLE LITE) test strip TEST BLOOD SUGAR ONCE DAILY 50 strip 6 ibuprofen 600 MG tablet Take 1 tablet by mouth every 6 (six) hours if needed. losartan (Cozaar) 25 MG tablet Take 1 tablet (25 mg) by mouth in the morning. 90 tablet 1 mometasone (Elocon) 0.1 % ointment APPLY TOPICALLY ONCE DAILY IN THE MORNING 15 g 2 montelukast (Singulair) 10 MG tablet TAKE 1 TABLET BY MOUTH AT BEDTIME 90 tablet 1 omeprazole (PriLOSEC) [address] capsule TAKE 1 CAPSULE BY MOUTH DAILY BEFORE BREAKFAST 90 capsule 0 sildenafil (Viagra) 50 MG tablet TAKE 1 TABLET 1 HOUR BEFORE SEXUAL RELATIONS ONCE DAILY NEEDED.10 tablet 1 TRUEplus Lancets 33G [facility] TEST BLOOD SUGARS ONCE DAILY 100 each 11 No current facility-administered medications on file prior to visit. documented in this encounter Plan of Treatment Upcoming Encounters Date Type Department Care Team (Late st Contact Info) Description 05/20/2025 11:15 AM EDT Office Visit [facility] [address] [place] [address] Name, MD Johann [address] [place] [address] Scheduled Orders Name Type Priority Associated Diagnoses Orde r Schedule CBC auto differential Lab Routine Pre-op evaluation Expected: 04/23/2025 (Approximate), Expires: 04/23/2026 Basic Metabolic Panel Lab Routine Pre-op evaluation Expected: 04/23/2025 (Approximate), Expires: 04/23/2026 Hepatic Function Panel Lab Routine Pre-op evaluation Expected: 04/23/2025 (Approximate), Expires: 04/23/2026 Albumin, Random Urine W/Creatinine Lab Routine Pre-op evaluation Expected: 04/23/2025 (Approximate), Expires: 04/23/2026 Hemoglobin A1c Lab Routine Pre-op evaluation Expected: 04/23/2025 (Approximate), Expires: 04/23/2026 Prothrombin Time-INR Lab Routine Pre-op evaluation Expected: 04/23/2025, Expires: 04/23/2026 documented as of this encounter Procedures Procedure Name Priority Date/Time Associated Diagnosis Comments ECG 12-LEAD Routine 04/23/2025 10:39 AM EDT Pre-op evaluation POCT GLYCATED HEMOGLOBIN, TOTAL Routine 04/23/2025 10:07 AM EDT Type 2 diabetes mellitus with microalbuminuria, without long-term current use of insulin ([facility]) POCT GLUCOSE Routine 04/23/2025 10:07 AM EDT Type 2 diabetes mellitus with microalbuminuria, without long-term current use of insulin ([facility]) documented in this encounter Results * ECG 12 lead (04/23/2025 10:39 AM EDT) Narrative Samantha Mei CNP - 04/23/2025 10:39 AM EDT Rate 66 bpm, NSR, no QR interval prolongation, no ST segmental changes, no acute abnormalities. Result [facility] ECG ORDERABLES Final Res ult * POCT glucose manually resulted (04/23/2025 10:07 AM EDT) Glucose Blood, POC 126 60 - 200 mg/dL QC Media Lot # Comment:[id number] Lot# Expiration Date Comment:08/08/2025 Blood Capillary blood specimen / Unknown 04/23/2025 10:07 AM EDT Result [facility] POINT OF CARE TEST ENTER/ EDIT ORDERABLES Final Result * (ABNORMAL) POCT A1c (04/23/2025 10:07 AM EDT) Hemoglobin A1C 6.8(A) 4.0 - 5.7 % QC Media Lot # Comment:[id number] Lot# Expiration Date Comment:11/24/2026 Blood 04/23/2025 10:0 7 AM EDT Result [facility] POINT OF CARE TEST ENTER/ EDIT ORDERABLES Final Result documented in this encounter Visit Diagnoses Diagnosis Moderate persistent asthma, unspecified whether complicated- Primary Sleep apnea, unspecified type Primary hypertension Unspecified essential hypertension Type 2 diabetes mellitus with microalbuminuria, without long-term current use of insulin ([facility]) Pre-op evaluation documented in this encounter Additional Health Concerns Assessment Noted Time PHQ-9 Depression Total Score: 1 01/07/20 25 11:05 AM EDT documented as of this encounter Care Teams Glazing Machine Operator Relationship Specialty Start Date End Date Name, MD Johann [address] [place] [address] PCP - General Family Medicine 10/22/15 documented as of this encounter
--- OUTSIDE RECORDS SUMMARY | 2025-04-23 12:28 | XMS_ITS | Encounter Summary ---
Author Organization [employer] Address [address] [facility] 7t [place] [address] Care Team Providers Care Straightening Press Operator Name Role Phone Name, Johann CARRERA Primary Care Provider [phone] Reason for Visit * Reason Onset Date Comments Pre-op Visit 04/22/2025 Encounter Details Date Type Department Care Team ([facility] st Contact Info) Description 04/22/[address] [facility] [address] [place], [place] [phone] Name, MD Johann [address] [place] [address] Pre-op Visit Social History Tobacco Use Types Packs/Day Years [...] your housing situation today? I have sorin azrate 01/06/[address] you li [...] encounter Miscellaneous Notes * Telephone Encounter - Rubio Scott - 04/23/2025 9:19 AM EDT TC placed to pt agreed to Pre-op today 04/23 @ 10 am with [facility] . Aware of [facility] location ( address) Facility contacted to make them aware . Marycruz agreed to fax now what's needed for pre-op . * Telephone Encounter - Rubio Scott - 04/22/2025 12:32 PM EDT Date of Surgery: 04/30/25 Surgical procedure being done: Puncto plasty Type of anesthesia: general anesthesia Lab needed: Yes EKG: Yes Surgeon's name: Jazzmine Facility name: [facility] Surgeon's office number: [phone] Surgeon's office fax number: [phone] Contact name (person you spoke with): Chuck . Last office note from surgeon requested: Yes Send Message to Rubio Scott documented in this encounter Plan of Treatment Upcoming Encounters Date Type Department Care Team (Late st Contact Info) Description 05/20/2025 11:15 AM EDT Office Visit [facility] [address] [place] [address] Name, MD Johann [address] [place] [address] documented as of this encounter Visit Diagnoses Not on filedocumented in this encounter Additional Health Concerns Assessment Noted Time PHQ-9 Depression Total Score: 1 01/07/20 11:05 AM EDT documented as of this encounter Care Teams Straightening Press Operator Relationship Specialty Start Date End Date Name, MD Johann [address] [place] [address] PCP - General Family Medicine 10/22/15 documented as of this encounter
--- OUTSIDE RECORDS SUMMARY | 2025-04-23 12:28 | XMS_ITS | Encounter Summary ---
Author Organization [employer] Address [address] [facility] [address] 7t [place] [address] Care Team Providers Care Coremaker Machine Name Role Phone Name, Johann CARRERA Primary Care Provider [phone] Encounter Details Date Type Department Care Team ([facility] st Contact Info) Description 04/22/2025 Telephone [facility] [address] [place] [address] Kiersten Holman, PIYUSH Social History Tobacco Use Types Packs/Day Years [...] encounter Miscellaneous Notes * Telephone Encounter - Kiersten Holman RN - 04/22/2025 11:03 AM EDT Tc to [facility] to confirm if pt has been scheduled for surgery. They report pt has not been scheduled yet and advised them that we do not do pre-op until a surgery date has been confirmed. Tc to pt to advise them to call [facility] to schedule a surgery date then to call us back so thatwe're aware. Pt verbalized understanding and no further questions or concerns at this time. documented in this encounter Plan of Treatment Upcoming Encounters Date Type Department Care Team (Late st Contact Info) Description 05/20/2025 11:15 AM EDT Office Visit [facility] [address] [place] [address] Name, MD Johann 230 [place] [address] documented as of this encounter Visit Diagnoses Not on filedocumented in this encounter Additional Health Concerns Assessment Noted Time PHQ-9 Depression Total Score: 1 01/07/20 25 11:05 AM EDT documented as of this encounter Care Teams Coremaker Machine Relationship Specialty Start Date End Date NameJohann MD [address] [place] [address] [place] [address] PCP - General Family Medicine 10/22/15 documented as of this encounter
--- OUTSIDE RECORDS SUMMARY | 2025-04-23 12:28 | XMS_ITS | Encounter Summary ---
Author Organization [employer] Address [address] [place] [address] 7 [place] [address] Care Team Providers Care Foreclosure Field Inspector Name Role Phone NameJohann MD Primary Care Provider [phone] Reason for Visit * Reason Comments Med Refill Encounter Details Date Type Department Care Team (Late Contact Info) Description 01/19/2023 Refill [facility] [address] [place] [address] [phone] NameJohann MD [address] [place] [address] [phone] Social History Tobacco Use Types Packs/Day Years [...] Description 05/20/2025 11:15 AM EDT Office Visit [facility] [address] [place] [address] [phone] Johann Gilbert MD [address] [place] [address] [phone] documented as of this encounter Visit Diagnoses Not on filedocumented in this encounter Care Teams Foreclosure Field Inspector Relationship Specialty Start Date End Date NameJohann MD [address] [place] [phone] PCP - General Family Medicine 10/22/15 documented as of this encounter
--- OUTSIDE RECORDS SUMMARY | 2025-04-23 12:28 | XMS_ITS | Encounter Summary ---
Author Organization [employer] Address [address] [place] [address] 7 [place] [address] Care Team Providers Care Russian History Professor Name Role Phone NameJohann MD Primary Care Provider [phone] Reason for Visit * Reason Comments Med Refill Encounter Details Date Type Department Care Team (Late Contact Info) Description 12/20/2022 Refill [facility] MED[facility]INE [address] [place] [address] [phone] NameJohann MD [address] [place] [address] [phone] Social History Tobacco Use Types Packs/Day Years [...] Description 05/20/2025 11:15 AM EDT Office Visit [facility] [address] [place] [address] [phone] Johann Gilbert MD [address] [place] [address] [phone] documented as of this encounter Visit Diagnoses Not on filedocumented in this encounter Care Teams Russian History Professor Relationship Specialty Start Date End Date NameJohann MD [address] [place] [address] PCP - General Family Medicine 10/22/15 documented as of this encounter
--- OUTSIDE RECORDS SUMMARY | 2025-04-23 12:28 | XMS_ITS | Encounter Summary ---
Author Organization [employer] Address [address] [facility] [address] 7t [place] [address] Care Team Providers Care Blueprint Reproducer Name Role Phone Name, Johann CARRERA Primary Care Provider [phone] Reason for Visit * Reason Onset Date Comments chart prep 04/23/2025 Encounter Details Date Type Department Care Team ([facility] st Contact Info) Description 04/23/2025 Telephone [facility] [address] [place], [place] [phone] Name, MD Johann [address] [place] [address] chart prep Social History Tobacco Use Types Packs/Day Years [...] encounter Miscellaneous Notes * Telephone Encounter - Kerry Mason MA - 04/23/2025 9:24 AM EDT Chart Prep Labs: not applicable Images: not applicable Referrals: appointment pending Vaccines due: Flu and RSV Screenings: not applicable Overdue care gaps: A1c, Glucose, and Disability screen documented in this encounter Plan of Treatment Upcoming Encounters Date Type Department Care Team (Late st Contact Info) Description 05/20/2025 11:15 AM EDT Office Visit [facility] [address] [place] [address] NameJohann MD [address] [place] [address] documented as of this encounter Visit Diagnoses Not on filedocumented in this encounter Additional Health Concerns Assessment Noted Time PHQ-9 Depression Total Score: 1 01/07/20 11:05 AM EDT documented as of this encounter Care Teams Blueprint Reproducer Relationship Specialty Start Date End Date NameJohann MD [address] [place] [address] PCP - General Family Medicine 10/22/15 documented as of this encounter
--- OUTSIDE RECORDS SUMMARY | 2025-04-23 12:28 | XMS_ITS | Encounter Summary ---
Author Organization [employer] Address [address] [facility] [address] 7t [place] [address] Care Team Providers Care Property Maintenance Supervisor Name Role Phone Name, Johann CARRERA Primary Care Provider [phone] Encounter Details Date Type Department Care Team ([facility] st Contact Info) Description 12/18/2023 Telephone [facility] 230 [place], [place] [phone] Name, MD Johann 230 [place] [address] Social History Tobacco Use Types Packs/Day Years [...] Description 05/20/2025 11:15 AM EDT Office Visit [facility] [address] [place] [address] NameJohann MD 230 [place] [address] documented as of this encounter Visit Diagnoses Not on filedocumented in this encounter Additional Health Concerns Assessment Noted Time PHQ-9 Depression Total Score: 0 11/20/19 24 10:53 AM EDT documented as of this encounter Care Teams Property Maintenance Supervisor Relationship Specialty Start Date End Date NameJohann MD [address] [place] [address] PCP - General Family Medicine 10/22/15 documented as of this encounter
--- OUTSIDE RECORDS SUMMARY | 2025-04-23 12:28 | XMS_ITS | Encounter Summary ---
Author Organization [employer] Address [address] [facility] 7t [place] [address] Care Team Providers Care Weatherstrip Machine Operator Name Role Phone NameJohann MD Primary Care Provider [phone] Encounter Details Date Type Department Care Team (Late st Contact Info) Description 08/01/2022 Orders Only [facility]EDS [address] [place] [address] Marsha Juares LPN Social History Tobacco Use [...] Description 05/20/2025 11:15 AM EDT Office Visit [facility] MED[facility]INE 230 [place] [address] NameJohann MD 230 [place] [address] documented as of this encounter Visit Diagnoses Not on filedocumented in this encounter Care Teams Weatherstrip Machine Operator Relationship Specialty Start Date End Date Johann Gilbert MD [address] [place] [address] PCP - General Family Medicine 10/22/15 documented as of this encounter
--- OUTSIDE RECORDS SUMMARY | 2025-04-23 12:28 | XMS_ITS | Encounter Summary ---
Author Organization [employer] Address [address] [place] [address] 7t [place] [address] Care Team Providers Care Mid Wife Name Role Phone NameJohann MD Primary Care Provider [phone] Encounter Details Date Type Department Care Team (Late st Contact Info) Description 08/23/2022 Orders Only [facility] MED & PEDS [address] [place] [address] Marsha Juares LPN Social History Tobacco Use [...] Description 05/20/2025 11:15 AM EDT Office Visit [facility] MEDICINE 230 [place] [address] NameJohann MD 230 [place] [address] documented as of this encounter Visit Diagnoses Not on filedocumented in this encounter Care Teams Mid Wife Relationship Specialty Start Date End Date Johann Gilbert MD [address] [place] [address] PCP - General Family Medicine 10/22/15 documented as of this encounter
--- OUTSIDE RECORDS SUMMARY | 2025-04-23 12:28 | XMS_ITS | Encounter Summary ---
Author Organization [employer] Address [address] [facility] 7t [place] [address] Care Team Providers Care Usability Architect Name Role Phone Name, Johann CARRERA Primary Care Provider [phone] Reason for Visit * Reason Comments Med Refill Encounter Details Date Type Department Care Team ([facility] st Contact Info) Description 03/13/2024 Refill [facility] MEDICINE 230 [place], [place] [phone] Name, MD Johann [address] [place] [address] Erectile dysfunction, unspecified erectile dysfunction type Social [...] Description 05/20/2025 11:15 AM EDT Office Visit [facility] MEDICINE [address] [place] [phone] NameJohann MD 230 [place] [address] documented as of this encounter Visit Diagnoses Diagnosis Erectile dysfunction, unspecified erectile dysfunction type documented in this encounter Additional Health Concerns Assessment Noted Time PHQ-9 Depression Total Score: 0 11/20/19 24 10:53 AM EDT documented as of this encounter Care Teams Usability Architect Relationship Specialty Start Date End Date NameJohann MD [address] [place] [address] PCP - General Family Medicine 10/22/15 documented as of this encounter
--- OUTSIDE RECORDS SUMMARY | 2025-04-23 12:28 | XMS_ITS | Encounter Summary ---
Author Organization [employer] Address [address] [facility] [address] 7t [place] [address] Care Team Providers Care Lettuce Cutter Name Role Phone Name, Johann CARRERA Primary Care Provider [phone] Reason for Visit * Reason Onset Date Comments Nurse Triage 08/28/2023 Encounter Details Date Type Department Care Team ([facility] st Contact Info) Description 08/28/2023 Telephone [facility]INE 230 [place], [place] [phone] Name, MD Johann 230 [place] [address] Nurse Triage Social History Tobacco Use Types [...] the past 12 months, has t he [employer], gas, oil or water [employer] threatened to shut off services in your [...] again and if not successful come to [facility] for provider to take alook at ear. [...] You become worse * Telephone Encounter - Drois Roman - 08/28/2023 3:12 PM EST Symptom: Ear Congestion Without Pain Outcome: Schedule an appointment to be seen within 3 days Reason: This is the only possible outcome for this symptom, was advised to call back on 08/22C appointment if ear does not get any better The caller accepted this outcome Please contact pt at [phone] documented in this encounter Plan of Treatment Upcoming Encounters Date Type Department Care Team (Late st Contact Info) Description 05/20/2025 11:15 AM EDT Office Visit [facility]ICINE [address] [place] [phone] Name, MD Johann [address] [place] [address] documented as of this encounter Visit Diagnoses Not on filedocumented in this encounter Care Teams Lettuce Cutter Relationship Specialty Start Date End Date Name, MD Johann [address] [place] [address] PCP - General Family Medicine 10/22/15 documented as of this encounter
--- OUTSIDE RECORDS SUMMARY | 2025-04-23 12:28 | XMS_ITS | Encounter Summary ---
Author Organization [employer] Address [address] [place] [address] 7t [place] [address] Care Team Providers Care Loom Control Chain Builder Name Role Phone Name, Johann CARRERA Primary Care Provider Reason for Visit * Reason Comments Med Refill Encounter Details Date Type Department Care Team (Late st Contact Info) Description 12/21/2022 Refill [facility] MEDICINE [address] [place] [address] [phone] NameJohann MD [address] [place] [address] [phone] Type 2 diabetes mellitus without complication, without long-term current use of insulin (CMS/HCC) Social History Tobacco Use Types Packs/Day Years [...] Description 05/20/2025 11:15 AM EDT Office Visit [facility] MEDICINE [address] [place] [address] [phone] Johann Gilbert MD [address] [place] [address] [phone] documented as of this encounter Visit Diagnoses Diagnosis Type 2 diabetes mellitus without complication, without long-term current use of insulin (CMS/HCC) documented in this encounter Care Teams Loom Control Chain Builder Relationship Specialty Start Date End Date Name, MD Johann [address] [place] [address] PCP - General Family Medicine 10/22/15 documented as of this encounter
--- OUTSIDE RECORDS SUMMARY | 2025-04-23 12:28 | XMS_ITS | Encounter Summary ---
Author Organization [employer] Address [address] [place] [address] 7 [place] [address] Care Team Providers Care Pivot End Polisher Name Role Phone NameJohann MD Primary Care Provider [phone] Reason for Visit * Reason Comments Med Refill Encounter Details Date Type Department Care Team (Late Contact Info) Description 01/18/2023 Refill [facility] MEDICINE [address] [place] [address] [phone] NameJohann MD [address] [place] [address] [phone] Social History Tobacco Use Types Packs/Day Years [...] Description 05/20/2025 11:15 AM EDT Office Visit [facility] MEDICINE [address] [place] [address] [phone] Johann Gilbert MD [address] [place] [address] [phone] documented as of this encounter Visit Diagnoses Not on filedocumented in this encounter Care Teams Pivot End Polisher Relationship Specialty Start Date End Date NameJohann MD [address] [place] [address] PCP - General Family Medicine 10/22/15 documented as of this encounter
--- OUTSIDE RECORDS SUMMARY | 2025-04-23 12:28 | XMS_ITS | Encounter Summary ---
Author Organization [employer] Address [address] [facility] 7t [place] [address] Care Team Providers Care Data Communications Technician Name Role Phone Name, Johann CARRERA Primary Care Provider [phone] Reason for Visit * Reason Comments Med Refill Encounter Details Date Type Department Care Team (Late st Contact Info) Description 12/01/2024 Refill [facility]INE 230 [place], [place] [phone] Name, MD Johann [address] [place] [address] Type 2 diabetes mellitus without complication, without long-term current use of insulin ([facility]) Social History Tobacco Use Types [...] Description 05/20/2025 11:15 AM EDT Office Visit [facility]INE [address] [place] [address] Name, MD Johann [address] [place] [address] documented as of this encounter Visit Diagnoses Diagnosis Type 2 diabetes mellitus without complication, without long-term current use of insulin ([facility]) documented in this encounter Additional Health Concerns Assessment Noted Time PHQ-9 Depression Total Score: 0 11/20/19 24 10:53 AM EDT documented as of this encounter Care Teams Data Communications Technician Relationship Specialty Start Date End Date Name, MD Johann [address] [place] [address] PCP - General Family Medicine 10/22/15 documented as of this encounter
--- OUTSIDE RECORDS SUMMARY | 2025-04-23 12:28 | XMS_ITS | Encounter Summary ---
Author Organization [employer] Address [address] [facility] 7t [place] [address] Care Team Providers Care Pin Machine Operator Name Role Phone Name, Johann CARRERA Primary Care Provider [phone] Reason for Visit * Reason Onset Date Comments Appointment Request 02/04/2024 Encounter Details Date Type Department Care Team ([facility] st Contact Info) Description 02/04/2024 Telephone [facility] MEDICINE 230 [place], [place] [phone] Name, MD Johann [address] [place] [address] Appointment Request Social History Tobacco Use Types [...] now. Pt. Advised to give call to [facility] if any question and concern. Pt. Verbally agreed and understood, * Telephone Encounter - Benito Hua - 02/04/2024 3:16 PM EDT Tc from pt is having surgery done on the and was advised to follow up with pcp regarding A1C. Pt already had a pre op visit in [facility] and stated they faxed pre op notes over for pt to follow up on A1C. Please contact pt at [phone]. documented in this encounter Plan of Treatment Upcoming Encounters Date Type Department Care Team (Late st Contact Info) Description 05/20/2025 11:15 AM EDT Office Visit [facility] MEDICINE [address] [place] [address] Name, MD Johann [address] [place] [address] documented as of this encounter Visit Diagnoses Not on filedocumented in this encounter Additional Health Concerns Assessment Noted Time PHQ-9 Depression Total Score: 0 11/20/19 24 10:53 AM EDT documented as of this encounter Care Teams Pin Machine Operator Relationship Specialty Start Date End Date Name, MD Johann [address] [place] [address] PCP - General Family Medicine 10/22/15 documented as of this encounter
--- OUTSIDE RECORDS SUMMARY | 2025-04-23 12:28 | XMS_ITS | Encounter Summary ---
Author Organization [employer] Address [address] [facility] 7t [place] [address] Care Team Providers Care Political Organizer Name Role Phone Name, Johann CARRERA Primary Care Provider Encounter Details Date Type Department Care Team (Late st Contact Info) Description 01/22/2023 Abstract [facility] MEDICINE [address] [place] [phone] NameJohann MD [address] [place] [address] [phone] Social History Tobacco Use Types Packs/Day Years [...] [facility] MEDICINE [address] [place] [address] [phone] Name, MD Johann [address] [place] [address] [phone] documented as of this encounter Procedures Procedure Name Priority Date/Time Associated Diagnosis Comments COLONOSCOPY Routine 05/11/2016 11:38 AM EDT documented in this encounter Results * Colonoscopy (05/11/2016 11:38 AM EDT) Colonoscopy Normal Normal Narrative Katarina Frias - 05/11/2016 11:38 AM EDT Recommended 10 year follow up us Historical Provider HEALTH MAINTENANCE Final Result documented in this encounter Visit Diagnoses Not on filedocumented in this encounter Care Teams Political Organizer Relationship Specialty Start Date End Date Name, MD Johann [address] [place] [address] PCP - General Family Medicine 10/22/15 documented as of this encounter
--- OUTSIDE RECORDS SUMMARY | 2025-04-23 12:28 | XMS_ITS | Encounter Summary ---
Author Organization [employer] Address [address] [facility] [address] [place] [address] Care Team Providers Care Rn Hospital Name Role Phone Name, Johann CARRERA Primary Care Provider [phone] Reason for Visit * Reason Comments Med Refill Encounter Details Date Type Department Care Team (Late st Contact Info) Description 11/12/2023 Refill [facility] MEDICINE 230 [place], [place] [phone] Name, MD Johann [address] [place] [address] Acute pain of right shoulder; Asthma, unspecified [...] Office Visit [facility] MEDICINE [address] [place] [phone] NameJohann MD [address] [place] [phone] documented as of this encounter Visit Diagnoses Diagnosis Acute pain of right shoulder Asthma, unspecified asthma severity, unspecified whether complicated, unspecified whether persistent documented in this encounter Care Teams Rn Hospital Relationship Specialty Start Date End Date NameJohann MD [address] [place] [address] PCP - General Family Medicine 10/22/15 documented as of this encounter
--- OUTSIDE RECORDS SUMMARY | 2025-04-23 12:29 | XMS_ITS | Encounter Summary ---
Author Organization [employer] Address 75 [facility] 7t [place] [address] Care Team Providers Care Refinisher Name Role Phone Name, Johann CARRERA Primary Care Provider [phone] Encounter Details Date Type Department Care Team ([facility] st Contact Info) Description 03/15/[address] [facility] MED[facility]INE [address] [place], [place] [phone] Name, MD Johann [address] [place] [address] Social History Tobacco Use Types Packs/Day Years [...] Nova Peters - 03/15/2023 2:43 PM EDT Teenage Program Director refaxed referral to [phone]. * Telephone Encounter - Kirstin Yoder RN - 03/15/2023 11:04 AM EDT TC placed to Dr. Krishnan's office at [facility] ([phone]), they report they only received 1 page of referral just listing pt. Dx. And demographic information. They are requesting office visit note from when pt. Was referred as well as face sheet including insurance information along with referral. Please fax to [phone], thank you! * Telephone Encounter - Doris Roman - 03/15/2023 9:36 AM EDT Tc from pt states Dr Krishnan is requesting more information on DX for hand specialist referral. Fax to [phone]. documented in this encounter Plan of Treatment Upcoming Encounters Date Type Department Care Team (Late st Contact Info) Description 05/20/2025 11:15 AM EDT Office Visit [facility] MEDICINE [address] [place] [phone] Name, MD Johann [address] [place] [address] documented as of this encounter Visit Diagnoses Not on filedocumented in this encounter Care Teams Refinisher Relationship Specialty Start Date End Date Name, MD Johann [address] [place] [address] PCP - General Family Medicine 10/22/15 documented as of this encounter
--- OUTSIDE RECORDS SUMMARY | 2025-04-23 12:29 | XMS_ITS | Encounter Summary ---
Author Organization [employer] Address 75 [facility] 7t [place] [address] Care Team Providers Care Pharmacy Sales Representative Name Role Phone Name, Johann CARRERA Primary Care Provider [phone] Reason for Visit * Reason Onset Date Comments Med Refill 04/16/2025 Encounter Details Date Type Department Care Team ([facility] st Contact Info) Description 04/16/2025 Telephone [facility] MEDICINE 230 [place], [place] [phone] Name, MD Johann [address] [place] [address] Med Refill Social History Tobacco Use Types Packs/Day Years [...] Description 05/20/2025 11:15 AM EDT Office Visit [facility] MED[facility]INE [address] [place] [address] NameJohann MD [address] [place] [address] documented as of this encounter Visit Diagnoses Not on filedocumented in this encounter Additional Health Concerns Assessment Noted Time PHQ-9 Depression Total Score: 1 01/07/20 25 11:05 AM EDT documented as of this encounter Care Teams Pharmacy Sales Representative Relationship Specialty Start Date End Date Name, MD Johann [address] [place] [address] PCP - General Family Medicine 10/22/15 documented as of this encounter
--- OUTSIDE RECORDS SUMMARY | 2025-04-23 12:29 | XMS_ITS | Clinical Summary ---
Author Organization [address] [facility] Address 175 [place] [address] Phone Care Team Providers Care Control Panel Assembler Name Role Phone Josh Prado MD Primary [...] PM EDT Office Visit Orthopedic Surgery - [facility] [address] [facility] [address] [place] [address] Lamont Michaels MD S/P rotator [...] Months Insurance MEDICA[place] - [place] Care Teams Control Panel Assembler Relationship Specialty Start Date End Date Josh Prado MD [address] [place] [address] PCP - General 10/28/12
--- OUTSIDE RECORDS SUMMARY | 2025-04-23 12:29 | XMS_ITS | Encounter Summary ---
Author Organization [employer] Address 75 [facility] 7t [place] [address] Care Team Providers Care Optical Advisor Name Role Phone Name, Johann CARRERA Primary Care Provider [phone] Reason for Visit * Reason Comments Med Refill Encounter Details Date Type Department Care Team (Late st Contact Info) Description 10/27/2024 Refill [facility] MEDICINE [address] [place], [place] [phone] Name, MD Johann [address] [place] [address] Hypertension, unspecified type Social History Tobacco Use Types Packs/Day [...] 11:15 AM EDT Office Visit [facility] MED[facility]INE [address] [place] [phone] Name, MD Johann [address] [place] [address] documented as of this encounter Visit Diagnoses Diagnosis Hypertension, unspecified type documented in this encounter Additional Health Concerns Assessment Noted Time PHQ-9 Depression Total Score: 0 11/20/19 24 10:53 AM EDT documented as of this encounter Care Teams Optical Advisor Relationship Specialty Start Date End Date NameJohann MD [address] [place] [address] PCP - General Family Medicine 10/22/15 documented as of this encounter
--- OUTSIDE RECORDS SUMMARY | 2025-04-23 12:29 | XMS_ITS | Clinical Summary ---
Author Organization [employer] Address [address] [facility] 7t [place] [address] Care Team Providers Care Human Resources Records Clerk Name Role Phone Name, Johann CARRERA Primary Care Provider [phone] Allergies No known active allergies Medications glucose blood (FREESTYLE LITE) test stripIndicatio ns:Type 2 diabetes mellitus without complication, without long-term current use of insulin ([facility]) TEST BLOOD SUGAR ONCE DAILY 50 strip 6 10/25/19 23 Active albuterol (2.5 MG/3ML) 0.083% nebulizer solutionIndica tions:Asthma, unspecified asthma severity, unspecified whether complicated, unspecified whether persistent Take 3 mL by nebulization every 6 (six) hours. 75 mL 1 12/13/19 23 Active TRUEplus Lancets 33G misc TEST BLOOD SUGARS ONCE DAILY 100 each 11 12/21/19 23 Active Alcohol Swabs (Alcohol Prep) 70 % pads Use topically to skin once daily 100 each 11 12/22/19 23 Active acetaminophen (Tylenol) 500 MG tablet Take 2 tablets (1,000 mg) by mouth every 6 (six) hours if needed for moderate pain or fever for up to 25 doses. 30 tablet 08/22/19 24 Active mometasone (Elocon) 0.1 % ointment APPLY TOPICALLY ONCE DAILY IN THE MORNING 15 g 2 05/07/20 24 Active fluticasone (Flonase) 50 MCG/ACT nasal sprayIndicatio ns:Sore throat Administer 2 sprays into each nostril Once per day. Shake gently. Before first use, prime pump. After use, clean tip and replace cap. 16 g 2 01/22/ 026 Active atorvastatin (Lipitor) 20 MG tabletIndicati ons:Type 2 diabetes mellitus without complication, without long-term current use of insulin ([facility]) Take 1 tablet (20 mg) by mouth Once per day. 90 tablet 1 09/10/19 25 Active montelukast (Singulair) 10 MG tabletIndicati ons:Moderate persistent asthma, unspecified whether complicated TAKE 1 TABLET BY MOUTH AT BEDTIME 90 tablet 1 09/10/19 25 Active empagliflozin- metFORMIN ER (Synjardy XR) 12.5-1000 MG 24 hr tabletIndicati ons:Type 2 diabetes mellitus without complication, without long-term current use of insulin (CMS/HCC) Take 1 tablet by mouth with breakfast. 90 tablet 3 09/10/19 25 026 Active cetirizine (ZyrTEC) 10 MG tabletIndicati ons:Asthma, unspecified asthma severity, unspecified whether complicated, unspecified whether persistent TAKE 1 TABLET BY MOUTH EVERY MORNING 90 tablet 3 10/25/19 25 Active losartan (Cozaar) 25 MG tabletIndicati ons:Hypertensi on, unspecified type Take 1 tablet (25 mg) by mouth in the morning. 90 tablet 1 01/07/20 25 Active omeprazole (PriLOSEC) [address] capsuleIndicat ions:Sore throat TAKE 1 CAPSULE BY MOUTH DAILY BEFORE BREAKFAST 90 capsule 01/29/20 25 Active albuterol (Ventolin HFA) 108 (90 Base) MCG/ACT inhalerIndicat ions:Moderate persistent asthma, unspecified whether complicated INHALE 2 PUFFS BY MOUTH EVERY 6 HOURS NEEDED FOR WHEEZING 18 g 1 03/12/20 25 Active fluticasone-sa lmeterol (Advair HFA) 230-21 MCG/ACT inhalerIndicat ions:Moderate persistent asthma, unspecified whether complicated INHALE 2 PUFFS BY MOUTH TWICE A DAY. RINSE MOUTH AFTER USE. 12 g 1 03/12/20 25 Active sildenafil (Viagra) 50 MG tabletIndicati ons:Erectile dysfunction, unspecified erectile dysfunction type TAKE 1 TABLET 1 HOUR BEFORE SEXUAL RELATIONS ONCE DAILY NEEDED. 10 tablet 1 03/30/20 25 Active omega-3 (FISH OIL) 300 MG capsule 0 Refills, Maintenance, 01/08/24 13:05:00 EDT, Partial fill upon patient request if the prescription is for a schedule II opioid drug. 01/08/20 24 Active ibuprofen 600 MG tablet Take 1 tablet by mouth every 6 (six) hours if needed. Active aspirin 81 MG EC tablet Take 81 mg by mouth Once per day. Active sildenafil (Viagra) 50 MG tabletIndicati ons:Erectile dysfunction, unspecified erectile dysfunction type TAKE 1 TABLET 1 HOUR BEFORE SEXUAL RELATIONS ONCE DAILY NEEDED. 10 tablet 1 02/17/20 25 025 Discontinued ibuprofen 800 MG tabletIndicati ons:Acute right ankle pain Take 1 tablet (800 mg) by mouth every 8 (eight) hours if needed for moderate pain for up to 10 days. 30 tablet 03/31/20 25 025 Active Problems Problem Noted Date Diagnosed Date Acute right ankle pain 03/31/2025 Assessment & Plan (03/31/2025 12:08 PM EDT): Advised to elevate the leg apply ice and rest I will prescribe for him ibuprofen to take as needed for pain and swelling I will order an x-ray and refer him to orthopedics Viral upper respiratory tract infection 08/15/20 Assessment [...] Encounters Date Type Department Care Team Description 04/23/2025 10:00 AM EDT Office Visit [facility] [address] [place] [address] Samantha Mei CNP Moderate persistent asthma, unspecified whether complicated (Primary Dx); Sleep apnea, unspecified type; Primary hypertension; Type 2 diabetes mellitus with microalbuminuria, without long-term current use of insulin ([facility]); Pre-op evaluation 04/23/2025 Travel 04/23/2025 Telephone [facility] [address] [place] [address] Johann [place] MD chart prep 04/22/2025 Telephone [facility] MEDICINE [address] [place] [address] Johann [place] MD Pre-op Visit 04/22/2025 Telephone [facility] MED[facility] [address] [place] [address] Kiersten Holman RN 04/16/2025 Telephone [facility] [address] [place] [address] Johann [place] MD Med Refill 03/31/2025 9:40 AM EDT Office Visit [facility] [address] [place] [address] Florecita Mejia MD Acute right ankle pain 03/31/2025 Results Follow-Up [facility] [address] [place] [address] Florecita Mejia MD XR Ankle 3+ Views Right 03/31/2025 Travel 03/30/2025 Refill [facility] [address] [place] [address] Johann [place] MD Erectile dysfunction, unspecified erectile dysfunction type 03/12/2025 Refill [facility] [address] [place] [address] Johann [place] MD Moderate persistent asthma, unspecified whether complicated 02/24/2025 Telephone [facility] [address] [place] [address] Johann [place] MD Results 02/22/2025 Refill [facility] [address] [place] [address] Johann [place] MD Moderate persistent asthma, unspecified whether complicated 02/19/2025 Telephone [facility] [address] [place] [phone] Pepito Zhu [place] april recalls 02/15/2025 Refill [facility] [address] [place] [address] Johann [place] MD Erectile dysfunction, unspecified erectile dysfunction type 01/27/2025 Refill [facility] [address] [place] [address] Johann [place] MD Sore throat from Last 3 Months Immunizations Immunization Administration Dates Next Due Hep A, Adult [...] PPSV23 10/02/2011 Tdap 07/20/2023,09/22/2011 Zoster, Recombinant 01/27/2020,10/22/2019 Family History Medical History Relation Name Comments Diabetes Father Relation Name Status Comments Father Social History Tobacco Use Types Packs/Day Years [...] Mass Index 35.87 04/23/2025 10:00 AM EDT Plan of Treatment Upcoming Encounters Date Type Department Care Team (Late st Contact Info) Description 05/20/2025 11:15 AM EDT Office Visit [facility] MED[facility] [address] [place] [address] Name, MD Johann [address] [place] [address] Health Maintenance Due Date Last Done Comments CT Colonography 1965 FIT DNA/Cologuard 1965 FIT 1965 FOBT 1965 HIV Screening 1965 Sigmoidoscopy 1965 Alcohol/Substance Use Screening 1976 RSV Patients and Patients Aged 60 years or older (1 - Risk 60-74 years 1-dose series) 2024 Influenza Vaccine (#1) 2025 , 06/06/2023, 05/04/2022, Additional history exists Diabetes: Foot Exam 09/10/2025 09/10/2024, 09/10/2024, 09/10/2024, Additional history exists Lipid Panel 10/16/2025 10/16/2024, 12/0 03/2023, 10/11/2022, Additional history exists Diabetes: Hemoglobin A1C 10/21/2025 025, 09/10/2024, 03/03/2024, Additional history exists Depression Screening 01/06/2026 01/06/2025, 01/07/20 25 Disability Screening 01/06/2026 01/06/2025 SDOH Screening 01/06/2026 01/06/2025 Tobacco Screening 03/31/2026 03/31/2025 Colonoscopy 05/11/2026 05/11/2016 Colorectal Cancer Screening 05/11/2026 Eye Exam 10/27/2026 10/27/2024, 10/18, 10/27/2024, Additional history exists DTaP/Tdap/Td Vaccines (3 - Td or Tdap) [...] 04/23/2025 10:39 AM EDT Pre-op evaluation POCT GLUCOSE Routine 04/23/2025 10:07 AM EDT Type 2 diabetes mellitus with microalbuminuria, without long-term current use of insulin (CMS/HCC) POCT GLYCATED HEMOGLOBIN, TOTAL Routine 04/23/2025 10:07 AM EDT Type 2 diabetes mellitus with microalbuminuria, without long-term current use of insulin (CMS/HCC) XR ANKLE 3+ VIEWS RIGHT Routine 03/31/2025 9:13 AM EDT Acute right ankle pain HEPATITIS C AB W/REFL TO HCV RNA, QN, PCR Routine 01/14/2025 2:09 PM EDT Need for hepatitis C screening test LIPID PANEL, STANDARD Routine 10/16/2024 1:49 PM EST Type 2 diabetes mellitus without complication, without long-term current use of insulin (CMS/HCC) HM COLONOSCOPY Routine 05/11/2016 11:38 AM EDT from Last 3 Months or Most Recently Relevant to Health Maintenance Results * ECG 12 lead (04/23/2025 10:39 AM EDT) Samantha Robledo CNP - 04/23/2025 10:39 AM EDT Rate 66 bpm, NSR, no QR interval prolongation, no ST segmental changes, no acute abnormalities. Samantha Mei CNP ECG ORDERABLES Final Res ult * (ABNORMAL) POCT A1c (04/23/2025 10:07 AM EDT) Hemoglobin A1C 6.8(A) 4.0 - 5.7 % QC Media Lot # Comment:[id number] Lot# Expiration Date Comment:11/24/2026 Blood 04/23/2025 10:0 7 AM EDT [facility] POINT OF CARE TEST ENTER/ EDIT ORDERABLES Final Result * POCT glucose manually resulted (04/23/2025 10:07 AM EDT) Glucose Blood, POC 126 60 - 200 mg/dL QC Media Lot # Comment:[id number] Lot# Expiration Date Comment:08/08/2025 Blood Capillary blood specimen / Unknown 04/23/2025 10:07 AM EDT [facility] POINT OF CARE TEST ENTER/ EDIT ORDERABLES Final Result * XR Ankle 3+ Views Right (03/31/2025 9:13 AM EDT) Anatomical Region Laterality Modality Lower Extremities, Ankle Right Radiogr aphic Imaging 03/31/2025 9:13 AM EDT Narrative 03/31/2025 10:29 AM EDT [address] [address] XRay Report Signed Patient: Jacques Hernandez MR#: [id number] : 1965 Acct:[id number] Age/Sex: 59 / M ADM Date: 03/31/25 Loc: HO.HHCX Attending Dr: Florecita Regalado MD Ordering Physician: Florecita Mejia MD Date of Service: 03/31/25 Procedure(s): XR ankle RT min 3V Accession Number(s): [id number] cc: Florecita Mejia MD EXAMINATION: XR ANKLE 3 OR MORE VIEWS RIGHT HISTORY: pain COMPARISON: There are no prior studies available for comparison. FINDINGS: Three views of the right ankle are submitted. There is a sclerotic focus in the distal tibial metaphysis which could represent a healed nonossifying fibroma. There is no fracture or dislocation. There is mild degenerative change of the tibiotalar joint. There are vascular calcifications. XR/XR ankle RT min 3V IMPRESSION: Mild degenerative change of the tibiotalar joint. Sclerotic focus in the distal tibial metaphysis which could represent a healed nonossifying fibroma. Electronically signed by: Roland Campbell MD 03/31/2025 10:26 AM EDT RP Dictated By: Roland Campbell MD Signed By: <Electronically signed by Roland Campbell MD in OV> 03/31/25 1026 DD/ 0913 TD/TT: 03/31/25 0916 Drilling Plant Operator: Procedure Note Donotuseinterpreter, Image - 03/31/[address] [address] XRay Report Signed Patient: Eliot Hernandez#: [id number] : 1965Acct:[id number] Age/Sex: 59 / MADM Date: 03/31/25 Loc: .HHCX Attending Dr: Florecita Regalado MD Ordering Physician: Florecita Mejia MD Date of Service: 03/31/25 Procedure(s): XR ankle RT min 3V Accession Number(s): [id number] cc: Florecita Mejia MD EXAMINATION: XR ANKLE 3 OR MORE VIEWS RIGHT HISTORY: pain COMPARISON: There are no prior studies available for comparison. FINDINGS: Three views of the right ankle are submitted. There is a sclerotic focus in the distal tibial metaphysis which could represent a healed nonossifying fibroma. There is no fracture or dislocation. There is mild degenerative change of the tibiotalar joint. There are vascular calcifications. XR/XR ankle RT min 3V IMPRESSION: Mild degenerative change of the tibiotalar joint. Sclerotic focus in the distal tibial metaphysis which could represent a healed nonossifying fibroma. Electronically signed by: Roland Campbell MD 03/31/2025 10:26 AM EDT RP Dictated By: Roland Campbell MD Signed By: <Electronically signed by Roland Campbell MD in OV> 03/31/25 1026 DD/ 2 TD/TT: 03/31/25915 Drilling Plant Operator: us Florecita Regalado MD IMG XR PROCEDURES Shiv aggie Result - Final * Hepatitis C Antibody with Reflex to HCV, RNA, Quantitative, Real-Time PCR (01/14/2025 2:09 PM EDT) Hepatitis C Antibody Nonreactive Nonreactive [facility] Comment:Antibodies to HCV no t detected; does not exclude early acuteHCV infection. Blood Venous blood specimen / Unknown 01/14/2025 2:09 PM EDT 01/14/2025 4:15 PM EDT us Joahnn [place] MD LAB BLOOD ORDERABLES Final Resul t [facility] [address] [place] [phone] * Lipid Panel, Standard (10/16/2024 1:49 PM EST) Triglycerides 118 <150 mg/dL [facility] Comment:Desirable Triglyceri de: less than 150 mg/dLBorderline High Triglyceride 150-199 mg/dLHigh Triglyceride: 200-499 mg/dLVery High Triglyceride: greater than or equal to 5OO mg/dL Cholesterol 160 <200 mg/dL [facility] Comment:Desirable Cholestero l: less than 200 mg/dLBorderline High Cholesterol: 200-239 mg/dLHigh Cholesterol: greater than 239 mg/dL LDL Cholesterol Calculated 95 <100 mg/dL [facility] Comment:Desirable LDL: less than 100 mg/dLNear Optimal/Above Optimal LDL: 110- 129 mg/dLBorderline High LDL: 130-159 mg/dLHigh LDL: 160-189 mg/dLVery High LDL: greater than or equal to 190 mg/dL HDL Cholesterol 42 >40 mg/dL [facility] Comment:Desirable HDL: great er than 40 mg/dL Note: This HDL assay may give artificially low results in patients with liver disease. Blood Venous blood specimen / Unknown 10/16/2024 1:49 PM EST 10/16/2024 4:11 PM EST Johann [place] MD LAB BLOOD ORDERABLES Final Resul t [facility] [address] [place] [address] [phone] * Hm Colonoscopy (05/11/2016 11:38 AM EDT) Colonoscopy Normal Normal Narrative Katarina Frias - 05/11/2016 11:38 AM EDT Recommended 10 year follow up us Historical Provider HEALTH MAINTENANCE Final Result from Last 3 Months or Most Recently Relevant to Health Maintenance Insurance * Guarantor: Jacques Hernandez Account Type Relation to Patient Date of Phone Billing Address Personal/Family Self [address] [place] Care Teams Human Resources Records Clerk Relationship Specialty Start Date End Date Name, MD Johann [address] [place] [address] PCP - General Family Medicine 10/22/15
--- OUTSIDE RECORDS SUMMARY | 2025-04-23 12:29 | XMS_ITS | Encounter Summary ---
Author Organization [employer] Address [address] [facility] [address] 7[address] [place] [address] Care Team Providers Care General Worker Name Role Phone Name, Johann CARRERA Primary Care Provider Encounter Details Date Type Department Care Team (Latest Contact Info) Description 04/23/2025 Travel Social History Tobacco Use Types Packs/Day Years [...] Description 05/20/2025 11:15 AM EDT Office Visit [facility] MED[facility] [address] [place] [address] Name, MD Johann [address] [place] [address] documented as of this encounter Visit Diagnoses Not on filedocumented in this encounter Additional Health Concerns Assessment Noted Time PHQ-9 Depression Total Score: 1 01/07/20 25 11:05 AM EDT documented as of this encounter Care Teams General Worker Relationship Specialty Start Date End Date NameJohann MD [address] [place] [address] PCP - General Family Medicine 10/22/15 documented as of this encounter
[2025-04-23 14:05] LABS: MANUAL DIFF FLAG NO
[2025-04-23 14:10] LABS: Hematocrit 42.8 % (42.0-52.0); Hemoglobin 13.5 g/dl (14.0-18.0); Imm Gran Abs Auto 0.02 X10*3/uL (0.00-0.03); Imm Gran Pct Auto 0.3 % (0.0-0.4); Lymphocytes Absolute Auto 1.4 X10*3/uL (1.2-4.9); Mean Corpuscular HGB Conc 31.5 g/dl (31.0-36.0); Mean Corpuscular Hemoglobin 29.3 pg (27.0-33.0); Mean Corpuscular Volume 92.8 fL (80.0-98.0); NRBC Abs Auto 0.000 X10*3/uL (0.0-0.012); NRBC Pct Auto 0.0 /100WBC (0.0-0.2); Platelet Count 259 X10*3/uL (160-400); Red Blood Count 4.61 X10*6/uL (4.60-5.80); White Blood Count 6.0 X10*3/uL (4.8-10.8)
[2025-04-23 14:13] LABS: INTERNATIONAL NORM RATIO 1.0 (0.9-1.1); Prothrombin Time 11.6 SEC (10.9-12.4)
[2025-04-23 14:20] LABS: Hemoglobin A1C 191.3092 umol/L; Total Hemoglobin (HGBA1C) 3517.4788 umol/L
[2025-04-23 14:24] LABS: Alanine Aminotransferase 58 U/L (0-40); Albumin Level 4.1 g/dL (3.5-5.0); Alkaline Phosphatase 63 U/L (39-117); Anion Gap 12 (12-20); Aspartate Amino Transferase 42 U/L (5-37); Blood Urea Nitrogen 12 mg/dL (9-16); Calcium 8.9 mg/dL (8.4-10.2); Carbon Dioxide 30 mmol/L (22-29); Chloride 103 mmol/L (96-108); Estimated Glomerular Filt Rate > 60; Potassium 3.9 mmol/L (3.3-5.1); Sodium 141 mmol/L (135-145); Total Protein 7.5 g/dL (6.5-8.0)
[2025-04-23 15:34] LABS: Microalbum/Creatinine Ratio Ur 32.7 ug/mg cr (<30)
== END 2025-04-23 10:52 | disposition home or self-care (01) ==
LOC: HO.CHCLDS 10:51
DX: Z01.818 Encounter for other preprocedural examination (principal)
CPT/HCPCS: 36415; 80048; 80076; 82043; 82570; 83036; 85025; 85610

== ENCOUNTER 2025-05-20 12:00 | Outpatient (REF) | payer MEDICAID, SELFPAY ==
--- OUTSIDE RECORDS SUMMARY | 2025-05-20 11:15 | XMS_ITS | Encounter Summary ---
Author Organization [employer] Address [address] [facility] [address] 7t [place] [address] Care Team Providers Care Otr Tanker Truck Driver Name Role Phone Name, Johann CARRERA Primary Care Provider [phone] Reason for Visit * Reason Comments Diabetes Encounter Details Date Type Department Care Team (Latest Contact Info) Description 05/20/2025 11:15 AM EDT Office Visit [facility]ICINE [address] [place] [address] Name, MD Johann [address] [place] [address] Type 2 diabetes mellitus with microalbuminuria, without long-term current use of insulin (HCC) (Primary Dx); Hypertension, unspecified type; Screening for HIV (human immunodeficiency virus); Encounter for immunization Social History Tobacco Use Types Packs/Day Years [...] Sign Reading Time Taken Comments Blood Pressure 136/84 05/20/2025 11:22 AM EDT Pulse 85 05/20/2025 11:22 AM EDT Temperature 36.6 C (97.8 F) 05/20/2025 11:22 AM EDT Respiratory Rate 18 05/20/2025 11:22 AM EDT Oxygen Saturation 96% 05/20/2025 11:22 AM EDT Inhaled Oxygen Concentration - - Weight 105 kg (230 lb 9.6 oz) 05/20/2025 11:22 A M EDT Height 170.2 cm (5' 7 ) 05/20/2025 11:22 AM EDT Body Mass Index 36.12 05/20/2025 11:22 AM EDT documented in this encounter Progress Notes * Johann Gilbert, - 05/20/2025 11:15 AM EDT Images from the original note were not included. Subjective Patient ID: Jacques Jacobs is a 59 y.o. male who presents for Diabetes. Patient comes for a follow up visit and he is doing well. Blood pressure is good. Blood sugars well-controlled. Asthma symptoms are well-controlled. He agreed to flu vaccination today. Review of Systems Constitutional: Negative for chills, fatigue and fever. HENT: Negative for sore throat. Respiratory: Negative for cough, chest tightness and shortness of breath. Cardiovascular: Negative for chest pain, palpitations and leg swelling. Gastrointestinal: Negative for abdominal pain and blood in stool. Objective Vitals: 05/20/25 1122 BP: 136/84 BP Location: Left arm Patient Position: Sitting BP Cuff Size: Adult Pulse: 85 Resp: 18 Temp: 97.8 ??F (36.6 ??C) TempSrc: Temporal SpO2: 96% Weight: 230 lb 9.6 oz (105 kg) Height: 5' 7 (1.702 m) Physical Exam Constitutional: Appearance: Normal appearance. Cardiovascular: Rate and Rhythm: Normal rate and regular rhythm. Heart sounds: No murmur heard. Pulmonary: Effort: Pulmonary effort is normal. No respiratory distress. Breath sounds: No wheezing, rhonchi or rales. Abdominal: Palpations: Abdomen is soft. Tenderness: There is no abdominal tenderness. Musculoskeletal: Right lower leg: No edema. Left lower leg: No edema. Neurological: Mental Status: He is alert. Lab Results Component Value Date HGBA1C 7.1 (H) 04/23/2025 HGBA1C 6.8 (A) 04/23/2025 HGBA1C 6.9 (A) 09/10/2024 HGBA1C 6.5 (A) 03/03/2024 HGBA1C 6.6 (A) 04/03/2023 HGBA1C 8.0 (A) 10/24/2022 HGBA1C 7.1 (A) 09/11/2022 Lab Results Component Value Date WBC 6.0 04/23/2025 HGB 13.5 (L) 04/23/2025 HCT 42.8 04/23/2025 MCV 92.8 04/23/2025 PLT 259 04/23/2025 Lab Results Component Value Date GLUCOSE 114 04/23/2025 NA 141 04/23/2025 K 3.9 04/23/2025 CO2 30 (H) 04/23/2025 CL 103 04/23/2025 BUN 12 04/23/2025 CREATININE 0.68 04/23/2025 Hepatic Function Panel Order: [id number] Status: Final result Dx: Pre-op evaluation Test Result Released: No (inaccessible in [facility]) 0 Result Notes Component Ref Range & Units (hover) 3 wk ago (04/23/25) 4 mo ago (01/14/25) 7 mo ago (10/16/24) 1 yr ago (07/27/23) 2 yr ago (10/11/22) 3 yr ago (01/05/22) 3 yr ago (07/04/21) Bilirubin, Total 0.5 0.6 0.6 0.6 0.5 R Bilirubin, Direct 0.2 Aspartate Amino Transferase 42 High 38 High 40 High 34 33 R Alanine Aminotransferase 58 High 51 High 56 High 47 High 43 R 41 R 41 R Total Protein 7.5 7.7 8.7 High 7.8 Albumin Level 4.1 4.1 4.2 4.0 Alkaline Phosphatase 63 69 67 72 Resulting Agency [facility] Albumin, Random Urine W/Creatinine Component Ref Range & Units (hover) 3 wk ago (04/23/25) 4 mo ago (01/14/25) 7 mo ago (10/16/24) 1 yr ago (03/03/24) 1 yr ago (07/27/23) 3 yr ago (01/05/22) 3 yr ago (07/04/21) Creatinine, Urine 103.87 73.44 89.57 153.91 83.24 Microalbumin Urine 34.0 12.0 51.0 63.0 26.0 6.7 R, CM 4.8 R, CM Microalbum Creatinine Ratio Ur 32.7 High 16.3 CM 56.9 High CM 40.9 High CM 31.2 High CM Comment: Albumin/Creatinine Ratio Reference Ranges: Normal: < 30 ug/mg creatinine Microalbuminuria: 30 - 300 ug/mg creatinineClinical Albuminuria: > 300 ug/mg creatinine Assessment/Plan Diagnoses and all orders for this visit: Type 2 diabetes mellitus with microalbuminuria, without long-term current use of insulin ([facility]) Comments: Patient is congratulated. Continue current medications, regular physical activity, avoid sweets andsoda Orders: - POCT Glucose Hypertension, unspecified type Comments: Conitue losartan Orders: - losartan (Cozaar) 25 MG tablet; Take 1 tablet (25 mg) by mouth in the morning. Screening for HIV (human immunodeficiency virus) Orders: - HIV-1/2 Antigen and Antibodies, Fourth Generation, with Reflexes; Future Encounter for immunization - FLU VACCINE TRIVALENT [id number] (Fluarix) 19 yrs + Future Appointments Date Time Provider Department Center 08/18/2025 10:45 AM Johann Gilbert MD MEDICINE [facility] documented in this encounter Plan of Treatment Upcoming Encounters Date Type Department Care Team (Late st Contact Info) Description 08/18/2025 10:45 AM EST Office Visit [facility] [address] [place] [address] Name, MD Johann [address] [place] [address] Scheduled Orders Name Type Priority Associated Diagnoses Orde r Schedule HIV-1/2 Antigen and Antibodies, Fourth Generation, with Reflexes Lab Routine Screening for HIV (human immunodeficiency virus) Expected: 05/20/2025 (Approximate), Expires: 05/20/2026 documented as of this encounter Procedures Procedure Name Priority Date/Time Associated Diagnosis Comments POCT GLUCOSE Routine 05/20/2025 11:28 AM EDT Type 2 diabetes mellitus with microalbuminuria, without long-term current use of insulin (HCC) documented in this encounter Results * POCT Glucose (05/20/2025 11:28 AM EDT) [facility] Signature Glucose Blood, POC 163 60 - 200 mg/dL QC Media Lot # [id number] Lot# Expiration Date Blood Capillary blood specimen / Unknown 05/20/2025 11:28 AM EDT Johann Gilbert MD POINT OF CARE TEST ENTER/EDIT OR DERABLES Final Result documented in this encounter Visit Diagnoses Diagnosis Type 2 diabetes mellitus with microalbuminuria, without long-term current use of insulin (HCC)- Primary Hypertension, unspecified type Screening for HIV (human immunodeficiency virus) Special screening examination for other specified viral diseases Encounter for immunization documented in this encounter Additional Health Concerns Assessment Noted Time PHQ-9 Depression Total Score: 1 01/07/20 25 11:05 AM EDT documented as of this encounter Care Teams Otr Tanker Truck Driver Relationship Specialty Start Date End Date Name, MD Johann [address] [place] [address] PCP - General Family Medicine 10/22/15 documented as of this encounter
--- OUTSIDE RECORDS SUMMARY | 2025-05-20 13:32 | XMS_ITS | Encounter Summary ---
Author Organization [employer] Address [address] [facility] [address] [place] [address] Care Team Providers Care Electronic Security Technician Name Role Phone Name, Johann CARRERA Primary Care Provider [phone] Reason for Visit * Reason Comments Med Refill Encounter Details Date Type Department Care Team (Late st Contact Info) Description 11/12/2023 Refill [facility] MEDICINE [address] [place], [place] [phone] Name, MD Johann [address] [place] [address] Acute pain of right shoulder; Asthma, unspecified [...] Description 08/18/2025 10:45 AM EST Office Visit [facility] MEDICINE [address] [place] [address] Name, MD Johann [address] [place] [address] documented as of this encounter Visit Diagnoses Diagnosis Acute pain of right shoulder Asthma, unspecified asthma severity, unspecified whether complicated, unspecified whether persistent documented in this encounter Care Teams Electronic Security Technician Relationship Specialty Start Date End Date Name, MD Johann [address] [place] [address] PCP - General Family Medicine 10/22/15 documented as of this encounter
--- OUTSIDE RECORDS SUMMARY | 2025-05-20 13:32 | XMS_ITS | Encounter Summary ---
Author Organization [employer] Address [address] [facility] 7t [place] [address] Care Team Providers Care Nba Player Name Role Phone Name, Johann CARRERA Primary Care Provider [phone] Reason for Visit * Reason Comments Med Refill Encounter Details Date Type Department Care Team (Late st Contact Info) Description 10/27/2024 Refill [facility] MEDICINE [address] [place], [place] [phone] Name, MD Johann [address] [place] [address] Hypertension, unspecified type Social History Tobacco Use [...] Description 08/18/2025 10:45 AM EST Office Visit [facility] MEDICINE [address] [place] [address] Name, MD Johann [address] [place] [address] documented as of this encounter Visit Diagnoses Diagnosis Hypertension, unspecified type documented in this encounter Additional Health Concerns Assessment Noted Time PHQ-9 Depression Total Score: 0 11/20/19 24 10:53 AM EDT documented as of this encounter Care Teams Nba Player Relationship Specialty Start Date End Date NameJohann MD [address] [place] [address] PCP - General Family Medicine 10/22/15 documented as of this encounter
--- OUTSIDE RECORDS SUMMARY | 2025-05-20 13:32 | XMS_ITS | Clinical Summary ---
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
--- OUTSIDE RECORDS SUMMARY | 2025-05-20 13:32 | XMS_ITS | Encounter Summary ---
Author Organization [employer] Address [address] [place] [address] 7t [place] [address] Care Team Providers Care Data Modeling Architect Name Role Phone NameJohann MD Primary Care Provider [phone] Encounter Details Date Type Department Care Team (Late st Contact Info) Description 08/23/2022 Orders Only [facility] MED & PEDS [address] [place] [address] Marsha Juares LPN Social History Tobacco Use [...] Description 08/18/2025 10:45 AM EST Office Visit [facility] MEDICINE [address] [place] [address] NameJohann MD [address] [place] [address] documented as of this encounter Visit Diagnoses Not on filedocumented in this encounter Care Teams Data Modeling Architect Relationship Specialty Start Date End Date Johann Gilbert MD [address] [place] [address] PCP - General Family Medicine 10/22/15 documented as of this encounter
--- OUTSIDE RECORDS SUMMARY | 2025-05-20 13:32 | XMS_ITS | Encounter Summary ---
Author Organization [employer] Address [address] [facility] 7t [place] [address] Care Team Providers Care Fruit I Farmworker Name Role Phone Name, Johann CARRERA Primary Care Provider [phone] Reason for Visit * Reason Onset Date Comments Med Refill 04/16/2025 Encounter Details Date Type Department Care Team ([facility] st Contact Info) Description 04/16/2025 Telephone [facility] MEDICINE [address] [place], [place] [phone] Name, MD Johann [address] [place] [address] Med Refill Social History Tobacco Use Types [...] 08/18/2025 10:45 AM EST Office Visit [facility] MEDICINE [address] [place] [address] NameJohann MD [address] [place] [address] documented as of this encounter Visit Diagnoses Not on filedocumented in this encounter Additional Health Concerns Assessment Noted Time PHQ-9 Depression Total Score: 1 01/07/20 25 11:05 AM EDT documented as of this encounter Care Teams Fruit I Farmworker Relationship Specialty Start Date End Date Name, MD Johann [address] [place] [address] PCP - General Family Medicine 10/22/15 documented as of this encounter
--- OUTSIDE RECORDS SUMMARY | 2025-05-20 13:32 | XMS_ITS | Encounter Summary ---
Author Organization [employer] Address [address] [place] [address] 7 [place] [address] Care Team Providers Care Ammonium Nitrate Neutralizer Name Role Phone NameJohann MD Primary Care Provider [phone] Reason for Visit * Reason Comments Med Refill Encounter Details Date Type Department Care Team ([facility] Contact Info) Description 12/20/2022 Refill [facility] MEDICINE [address] [place] [phone] NameJohann MD [address] [place] [address] Social History Tobacco Use Types Packs/Day Years [...] Description 08/18/2025 10:45 AM EST Office Visit [facility] MEDICINE [address] [place] [address] Johann Gilbert MD [address] [place] [address] [phone] documented as of this encounter Visit Diagnoses Not on filedocumented in this encounter Care Teams Ammonium Nitrate Neutralizer Relationship Specialty Start Date End Date NameJohann MD [address] [place] [address] PCP - General Family Medicine 10/22/15 documented as of this encounter
--- OUTSIDE RECORDS SUMMARY | 2025-05-20 13:32 | XMS_ITS | Encounter Summary ---
Author Organization [employer] Address [address] [facility] 7t [place] [address] Care Team Providers Care Enrollment Clerk Name Role Phone Name, Johann CARRERA Primary Care Provider [phone] Encounter Details Date Type Department Care Team ([facility] st Contact Info) Description 03/15/2023 Telephone [facility] MEDICINE 230 [place], [place] [phone] Name, MD Johann [address] [place] [address] Social History Tobacco Use Types Packs/Day Years [...] Nova Peters - 03/15/2023 2:43 PM EDT Travel Ticketing Reviewer refaxed referral to [phone]. * Telephone Encounter - Kirstin Yoder RN - 03/15/2023 11:04 AM EDT TC placed to Dr. Krishnan's office at [facility] ([phone]), they report they only received 1 page of referral just listing pt. Dx. And demographic information. They are requesting office visit note from when pt. Was referred as well as face sheet including insurance information along with referral. Please fax to [phone], thank you! * Telephone Encounter - Doris Roman - 03/15/2023 9:36 AM EDT Tc from pt states Dr Krishnan is requesting more information on DX for hand specialist referral. Fax to [phone]. documented in this encounter Plan of Treatment Upcoming Encounters Date Type Department Care Team (Late st Contact Info) Description 08/18/2025 10:45 AM EST Office Visit [facility] MEDICINE [address] [place] [address] Name, MD Johann [address] [place] [address] documented as of this encounter Visit Diagnoses Not on filedocumented in this encounter Care Teams Enrollment Clerk Relationship Specialty Start Date End Date Name, MD Johann [address] [place] [address] PCP - General Family Medicine 10/22/15 documented as of this encounter
--- OUTSIDE RECORDS SUMMARY | 2025-05-20 13:32 | XMS_ITS | Encounter Summary ---
Author Organization [employer] Address [address] [facility] [address]t [place] [address] Care Team Providers Care Invoicing Specialist Name Role Phone Name, Johann CARRERA Primary Care Provider [phone] Encounter Details Date Type Department Care Team (Latest Contact Info) Description 05/20/2025 Travel Social History Tobacco Use Types Packs/Day [...] Description 08/18/2025 10:45 AM EST Office Visit [facility] MEDICINE [address] [place] [address] Name, MD Johann [address] [place] [address] documented as of this encounter Visit Diagnoses Not on filedocumented in this encounter Additional Health Concerns Assessment Noted Time PHQ-9 Depression Total Score: 1 01/07/20 25 11:05 AM EDT documented as of this encounter Care Teams Invoicing Specialist Relationship Specialty Start Date End Date NameJohann MD [address] [place] [address] PCP - General Family Medicine 10/22/15 documented as of this encounter
--- OUTSIDE RECORDS SUMMARY | 2025-05-20 13:32 | XMS_ITS | Encounter Summary ---
Author Organization [email or web address] Address [address] [place] [address] 7t [place] [address] Care Team Providers Care Bowl Topper Name Role Phone NameJohann MD Primary Care Provider [phone] Encounter Details Date Type Department Care Team (Late st Contact Info) Description 08/01/2022 Orders Only [facility] MED & PEDS [address] [place] [address] Marsha Juares LPN Social History Tobacco Use [...] Office Visit [facility] MEDICINE [address] [place] [address] NameJohann MD [address] [place] [address] documented as of this encounter Visit Diagnoses Not on filedocumented in this encounter Care Teams Bowl Topper Relationship Specialty Start Date End Date Johann Gilbert MD [address] [place] [address] PCP - General Family Medicine 10/22/15 documented as of this encounter
--- OUTSIDE RECORDS SUMMARY | 2025-05-20 13:32 | XMS_ITS | Encounter Summary ---
Author Organization [employer] Address [address] [facility] [address] 7[address] [place] [address] Care Team Providers Care Stencil Cutter Machine Name Role Phone Name, Johann CARRERA Primary Care Provider [phone] Encounter Details Date Type Department Care Team ([facility] st Contact Info) Description 12/18/2023 Telephone [facility] MEDICINE [address] [place], [place] [phone] Name, MD Johann [address] [place] [address] Social History Tobacco Use Types Packs/Day Years [...] Description 08/18/2025 10:45 AM EST Office Visit [facility] MEDICINE [address] [place] [address] NameJohann MD [address] [place] [address] documented as of this encounter Visit Diagnoses Not on filedocumented in this encounter Additional Health Concerns Assessment Noted Time PHQ-9 Depression Total Score: 0 11/20/19 24 10:53 AM EDT documented as of this encounter Care Teams Stencil Cutter Machine Relationship Specialty Start Date End Date Name, MD Johann [address] [place] [address] PCP - General Family Medicine 10/22/15 documented as of this encounter
--- OUTSIDE RECORDS SUMMARY | 2025-05-20 13:32 | XMS_ITS | Encounter Summary ---
Author Organization [employer] Address [address] [place] [address] [address] [place] [address] Care Team Providers Care Bullet Assembly Press Operator Name Role Phone Name, Johann CARRERA Primary Care Provider [phone] Reason for Visit * Reason Comments Med Refill Encounter Details Date Type Department Care Team (Late st Contact Info) Description 12/21/2022 Refill [facility] MEDICINE [address] [place] [address] [phone] Name, MD Johann [address] [place] [address] [phone] Type 2 diabetes mellitus without complication, without long-term current use of insulin ([facility]/HCC) Social History Tobacco Use Types Packs/Day Years [...] Description 08/18/2025 10:45 AM EST Office Visit [facility] MEDICINE [address] [place] [address] [phone] Johann Gilbert MD [address] [place] [address] [phone] documented as of this encounter Visit Diagnoses Diagnosis Type 2 diabetes mellitus without complication, without long-term current use of insulin ([facility]) documented in this encounter Care Teams Bullet Assembly Press Operator Relationship Specialty Start Date End Date Name, MD Johann [address] [place] [address] PCP - General Family Medicine 10/22/15 documented as of this encounter
--- OUTSIDE RECORDS SUMMARY | 2025-05-20 13:32 | XMS_ITS | Encounter Summary ---
Author Organization [employer] Address [address] [address] [facility] [address] [place] [address] Care Team Providers Care Mold Yard Crane Operator Name Role Phone Name, Johann CARRERA Primary Care Provider [phone] Reason for Visit * Reason Onset Date Comments Nurse Triage 08/28/2023 Encounter Details Date Type Department Care Team ([facility] st Contact Info) Description 08/28/2023 Telephone [facility] MEDICINE [address] [place], [place] [phone] Name, MD Johann [address] [place] [address] Nurse Triage Social History Tobacco Use Types [...] the past 12 months, has t he [employer], gas, oil or water [employer] threatened to shut off services in your [...] again and if not successful come to [facility] for provider to take alook at ear. [...] accepted this outcome Please contact pt at [phone] documented in this encounter Plan of Treatment Upcoming Encounters Date Type Department Care Team (Late st Contact Info) Description 08/18/2025 10:45 AM EST Office Visit [facility] MEDICINE [address] [place] [phone] Name, MD Johann [address] [place] [phone] documented as of this encounter Visit Diagnoses Not on filedocumented in this encounter Care Teams Mold Yard Crane Operator Relationship Specialty Start Date End Date Name, MD Johann [address] [place] [phone] PCP - General Family Medicine 10/22/15 documented as of this encounter
--- OUTSIDE RECORDS SUMMARY | 2025-05-20 13:32 | XMS_ITS | Encounter Summary ---
Author Organization [employer] Address [address] [facility] 7t [place] [address] Care Team Providers Care Maintenance Mechanic Name Role Phone Name, Johann CARRERA Primary Care Provider [phone] Reason for Visit * Reason Comments Med Refill Encounter Details Date Type Department Care Team (Late st Contact Info) Description 12/01/2024 Refill [facility] MEDICINE [address] [place], [place] [phone] Name, MD Johann [address] [place] [address] Type 2 diabetes mellitus without complication, without long-term current use of insulin ([facility]) Social History Tobacco Use Types Packs/Day Years [...] Description 08/18/2025 10:45 AM EST Office Visit [facility]INE [address] [place] [address] Name, MD Johann [address] [place] [address] documented as of this encounter Visit Diagnoses Diagnosis Type 2 diabetes mellitus without complication, without long-term current use of insulin (HCC) documented in this encounter Additional Health Concerns Assessment Noted Time PHQ-9 Depression Total Score: 0 11/20/19 24 10:53 AM EDT documented as of this encounter Care Teams Maintenance Mechanic Relationship Specialty Start Date End Date NameJohann MD [address] [place] [address] PCP - General Family Medicine 10/22/15 documented as of this encounter
--- OUTSIDE RECORDS SUMMARY | 2025-05-20 13:32 | XMS_ITS | Encounter Summary ---
Author Organization [employer] Address [address] [facility] 7t [place] [address] Care Team Providers Care Credit Collections Analyst Name Role Phone Name, Johann CARRERA Primary Care Provider [phone] Reason for Visit * Reason Onset Date Comments Appointment Request 02/04/2024 Encounter Details Date Type Department Care Team ([facility] st Contact Info) Description 02/04/2024 Telephone [facility] MEDICINE [address] [place], [place] [phone] Name, MD Johann [address] [place] [address] Appointment Request Social History Tobacco Use Types [...] now. Pt. Advised to give call to [facility] if any question and concern. Pt. Verbally agreed and understood, * Telephone Encounter - Benito Hua - 02/04/2024 3:16 PM EDT Tc from pt is having surgery done on the and was advised to follow up with pcp regarding A1C. Pt already had a pre op visit in [facility] and stated they faxed pre op notes over for pt to follow up on A1C. Please contact pt at [phone]. documented in this encounter Plan of Treatment Upcoming Encounters Date Type Department Care Team (Late st Contact Info) Description 08/18/2025 10:45 AM EST Office Visit [facility] MEDICINE [address] [place] [address] Name, MD Johann [address] [place] [address] documented as of this encounter Visit Diagnoses Not on filedocumented in this encounter Additional Health Concerns Assessment Noted Time PHQ-9 Depression Total Score: 0 11/20/19 24 10:53 AM EDT documented as of this encounter Care Teams Credit Collections Analyst Relationship Specialty Start Date End Date Name, MD Johann [address] [place] [address] PCP - General Family Medicine 10/22/15 documented as of this encounter
--- OUTSIDE RECORDS SUMMARY | 2025-05-20 13:32 | XMS_ITS | Encounter Summary ---
Author Organization [employer] Address [address] [place] [address] 7[address] [place] [address] Care Team Providers Care Quebracho Tanner Name Role Phone Name, Johann CARRERA Primary Care Provider [phone] Encounter Details Date Type Department Care Team (Late st Contact Info) Description 01/22/2023 Abstract [facility] MEDICINE [address] [place] [phone] Name, MD Johann [address] [place] [phone] Social History Tobacco Use Types Packs/Day Years [...] 10:45 AM EST Office Visit [facility] MEDICINE [address] [place] [phone] Name, MD Johann [address] [place] [address] [phone] documented as of this encounter Procedures Procedure Name Priority Date/Time Associated Diagnosis Comments HM COLONOSCOPY Routine 05/11/2016 11:38 AM EDT documented in this encounter Results * Hm Colonoscopy (05/11/2016 11:38 AM EDT) Colonoscopy Normal Normal Narrative Katarina Frias - 05/11/2016 11:38 AM EDT Recommended 10 year follow up us Historical Provider HEALTH MAINTENANCE Final Result documented in this encounter Visit Diagnoses Not on filedocumented in this encounter Care Teams Quebracho Tanner Relationship Specialty Start Date End Date Name, MD Johann [address] [place] [phone] PCP - General Family Medicine 10/22/15 documented as of this encounter
--- OUTSIDE RECORDS SUMMARY | 2025-05-20 13:32 | XMS_ITS | Encounter Summary ---
Author Organization [employer] Address [address] [place] [address] [address] [place] [address] Care Team Providers Care Embryology Professor Name Role Phone NameJohann MD Primary Care Provider [phone] Reason for Visit * Reason Comments Med Refill Encounter Details Date Type Department Care Team (Late Contact Info) Description 01/19/2023 Refill [facility] MEDICINE [address] [place] [phone] NameJohann MD [address] [place] [phone] Social History Tobacco Use Types Packs/Day Years [...] 10:45 AM EST Office Visit [facility] MEDICINE [address] [place] [phone] Johann Gilbert MD [address] [place] [address] [phone] documented as of this encounter Visit Diagnoses Not on filedocumented in this encounter Care Teams Embryology Professor Relationship Specialty Start Date End Date NameJohann MD [address] [place] [phone] PCP - General Family Medicine 10/22/15 documented as of this encounter
--- OUTSIDE RECORDS SUMMARY | 2025-05-20 13:32 | XMS_ITS | Clinical Summary ---
Author Organization [employer] Address [address] [facility] [address] [place] [address] Care Team Providers Care Split Leather Mosser Name Role Phone Name, Johann CARRERA Primary Care Provider [phone] Allergies No known active allergies Medications glucose blood (FREESTYLE LITE) test stripIndicatio ns:Type 2 diabetes mellitus without complication, without long-term current use of insulin ([facility]) TEST BLOOD SUGAR ONCE DAILY 50 strip [...] tip and replace cap. 16 g 2 09/10/19 25 2025 Active atorvastatin (Lipitor) 20 MG tabletIndicati ons:Type 2 diabetes mellitus without complication, without long-term current use of insulin (HCC) Take 1 tablet (20 mg) by mouth Once per day. 90 tablet 1 09/10/19 25 Active montelukast (Singulair) 10 MG tabletIndicati ons:Moderate persistent asthma, unspecified whether complicated TAKE 1 TABLET BY MOUTH AT BEDTIME 90 tablet 1 09/10/19 25 Active empagliflozin- metFORMIN ER (Synjardy XR) 12.5-1000 MG 24 hr tabletIndicati ons:Type 2 diabetes mellitus without complication, without long-term current use of insulin (HCC) Take 1 tablet by mouth with breakfast. 90 tablet 3 09/10/19 25 2025 Active cetirizine (ZyrTEC) 10 MG tabletIndicati ons:Asthma, unspecified asthma severity, unspecified whether complicated, unspecified whether persistent TAKE 1 TABLET BY MOUTH EVERY MORNING 90 tablet 3 10/25/19 25 Active omeprazole (PriLOSEC) [address] [...] mg by mouth Once per day. Active losartan (Cozaar) 25 MG tabletIndicati ons:Hypertensi on, unspecified type Take 1 tablet (25 mg) by mouth in the morning. 90 tablet 3 05/20/20 25 Active losartan (Cozaar) 25 MG tabletIndicati ons:Hypertensi on, unspecified type Take 1 tablet (25 mg) by mouth in the morning. 90 tablet 1 01/07/20 25 2024 Discontinued(R eorder (will not trigger notification to Pharmacy)) Active Problems Problem Noted Date Diagnosed Date [...] hematuria 12/31/2012 Combined drug dependence excluding opioids (CMS/ HCC) 02/01/2012 Tobacco dependence syndrome 02/01/2012 Encounters Date Type Department Care Team Description 05/20/2025 11:15 AM EDT Office Visit [facility] [address] [place] [phone] Name, MD Johann Type 2 diabetes mellitus with microalbuminuria, without long-term current use of insulin ([facility]) (Primary Dx); Hypertension, unspecified type; Screening for HIV (human immunodeficiency virus); Encounter for immunization 05/20/2025 Travel 04/23/2025 10:00 AM EDT Office Visit [facility] [address] [place] [address] Samantha Mei CNP Moderate persistent asthma, unspecified whether complicated (Primary Dx); Sleep apnea, unspecified type; Primary hypertension; Type 2 diabetes mellitus with microalbuminuria, without long-term current use of insulin (CMS/HCC); Pre-op evaluation 04/23/2025 Telephone [facility] [address] [place] [address] Samantha Mei CNP Pre-op Exam 04/23/2025 Telephone [facility] [address] [place] [address] Johann Gilbert MD 04/23/2025 Travel 04/23/2025 Telephone [facility] [address] [place] [address] Johann Gilbert MD chart prep 04/22/[address] [address] Johann Gilbert MD Pre-op Visit 04/22/[address] [address] Kiersten Holman, PIYUSH 04/16/[address] [address] Johann Gilbert MD Med Refill 03/31/2025 9:40 AM EDT Office Visit [facility] [address] [place] [address] Florecita Mejia MD Acute right ankle pain 03/31/2025 Results Follow-Up [facility] [address] [place] [address] Florecita Mejia MD XR Ankle 3+ Views Right 03/31/2025 Travel 03/30/2025 Refill [facility] [address] [place] [address] Johann Gilbert MD Erectile dysfunction, unspecified erectile dysfunction type 03/12/2025 Refill [facility] [address] [place] [address] Johann Gilbert MD Moderate persistent asthma, unspecified whether complicated 02/24/2025 Telephone [facility] [address] [place] [phone] Johann Gilbert MD Results 02/22/2025 Refill [facility] [address] [place] [address] Johann Gilbert MD Moderate persistent asthma, unspecified whether complicated 02/19/[address] [address] Pepito Zhu [place] april recalls from Last 3 Months Immunizations Immunization Administration Dates Next Due Hep A, Adult 09/22/2011,12/09/2010 Hep B, adult 09/22/2011,02/06/2011,12/09/2010 Influenza Injectable Quadriv alant Preservative Free IIV4 MDCK 06/06/2023 Influenza injectable quadriv alent IIV4 with preservative 10/22/2019 Influenza injectable quadriv alent preservative free 05/04/2022,04/21/2020,06/13/2018,08/03,05/31/2015 Influenza, IIV3, injectable 05/18/2021, 4 Influenza, Split (incl. sparkle fied surface antigen) 08/21/2013 Influenza, seasonal, injecta ble, preservative free 05/20/2025,07/07/2024 Pneumococcal Conjugate PCV 20 07/20/2023 Pneumococcal Polysaccharide [...] your housing situation today? I have sorin tessa 01/06/[address] you li [...] Mass Index 36.12 05/20/2025 11:22 AM EDT Plan of Treatment Upcoming Encounters Date Type Department Care Team (Late st Contact Info) Description 08/18/2025 10:45 AM EST Office Visit [facility] [address] [place] [address] Name, MD Johann [address] [place] [address] Health Maintenance Due Date Last Done Comments CT Colonography 1965 FIT DNA/Cologuard 1965 FIT 1965 FOBT 1965 HIV Screening 1965 Sigmoidoscopy 1965 Alcohol/Substance Use Screening 1976 RSV Patients and Patients Aged 60 years or older (1 - Risk 60-74 years 1-dose series) 2024 Diabetes: Hemoglobin A1C 07/23/2025 025, 04/23/2025, 09/10/2024, Additional history exists Diabetes: Foot Exam 09/10/2025 09/10/2024, 09/10/2024, 09/10/2024, Additional history exists Lipid Panel 10/16/2025 10/16/2024, 12/03/2023, 10/11/2022, Additional history exists Depression Screening 01/06/2026 01/06/2025, 01/07/20 25 Disability Screening 01/06/2026 01/06/2025 SDOH Screening 01/06/2026 01/06/2025 Colonoscopy 05/11/2026 05/11/2016 Colorectal Cancer Screening 05/11/2026 Tobacco Screening 05/20/2026 05/20/2025 Eye Exam 10/27/2026 10/27/2024, 10/18, 10/27/2024, Additional [...] history exists Hepatitis C Screening Completed 01/14/2025 Influenza Vaccine Completed 05/20/2025, , 06/06/2023, Additional history exists HIB Vaccines Aged Out [...] microalbuminuria, without long-term current use of insulin ([facility]) ALBUMIN, RANDOM URINE W/CREATININE Routine 04/23/2025 11:00 AM EDT Pre-op evaluation PROTHROMBIN TIME-INR Routine 04/23/2025 10:53 AM EDT Pre-op evaluation HEMOGLOBIN A1C Routine 04/23/2025 10:53 AM EDT Pre-op evaluation HEPATIC FUNCTION PANEL Routine 04/23/2025 10:53 AM EDT Pre-op evaluation BASIC METABOLIC PANEL Routine 04/23/2025 10:53 AM EDT Pre-op evaluation CBC WITH AUTO DIFFERENTIAL Routine 04/23/2025 10:53 AM EDT Pre-op evaluation ECG 12-LEAD Routine 04/23/2025 10:39 AM EDT Pre-op evaluation POCT GLUCOSE Routine 04/23/2025 10:07 AM EDT Type 2 diabetes mellitus with microalbuminuria, without long-term current use of insulin ([facility]) POCT GLYCATED HEMOGLOBIN, TOTAL Routine 04/23/2025 10:07 AM EDT Type 2 diabetes mellitus with microalbuminuria, without long-term current use of insulin (CMS/[facility]) XR ANKLE 3+ VIEWS RIGHT Routine 03/31/2025 [...] Recently Relevant to Health Maintenance Results * POCT Glucose (05/20/2025 11:28 AM EDT) Only the most recent of2 resultswithin the time period is included. Glucose Blood, POC 163 60 - 200 mg/dL QC Media Lot # [id number] Lot# Expiration Date Blood Capillary blood specimen / Unknown 05/20/2025 11:28 AM EDT Johann Gilbert MD POINT OF CARE TEST ENTER/EDIT OR DERABLES Final Result * (ABNORMAL) Albumin, Random Urine W/Creatinine (04/23/2025 11:00 AM EDT) Creatinine, Urine 103.87 mg/dL [facility] Microalbumin Urine 34.0 mg/L H [facility] Microalbum Creatinine Ratio Ur 32.7(H) <30 ug/mg cr [facility] Comment:Albumin/Creatinine R atio Reference Ranges: Normal: < 30 ug/mg creatinine Microalbuminuria: 30 - 300 ug/mg creatinineClinical Albuminuria: > 300 ug/mg creatinine Urine (Urine, Random) 04/23/2025 11:00 AM EDT 04/23/2025 1:57 PM EDT Samantha Mei [facility] URINE ORDERABLES Ondina l Result [facility] [address] [place] [address] [place] [phone] * (ABNORMAL) CBC auto differential (04/23/2025 10:53 AM EDT) White Blood Count 6.0 4.8 - 10.8 X10*3/uL [facility] Red Blood Count 4.61 4.60 - 5.80 X10*6/uL [facility] Hemoglobin 13.5(L) 14.0 - 18.0 g/dl [facility] Hematocrit 42.8 42.0 - 52.0 % [facility] Mean Corpuscular Volume 92.8 80.0 - 98.0 fL [facility] Mean Corpuscular Hemoglobin 29.3 27.0 - 33.0 pg [facility] Mean Corpuscular HGB Conc 31.5 31.0 - 36.0 g/dl [facility] Red Cell Distribution Width 15.0 11.0 - 16.0 % [facility] Platelet Count 259 160 - 400 X10*3/uL [facility] Mean Platelet Volume 10.2 9.4 - 12.4 fL [facility] Neutrophils Percent Auto 56.6 45 - 73 % [facility] Imm Gran Pct Auto 0.3 0.0 - 0.4 % [facility] Lymphocytes Percent Auto 23.4 20 - 40 % [facility] Monocytes Percent Auto 14.0(H) 2 - 11 % [facility] Eosinophils Percent Auto 4.5(H) 0 - 4 % [facility] Basophils Percent Auto 1.2 0 - 2 % [facility] NRBC Pct Auto 0.0 0.0 - 0.2 /100WBC [facility] Neutrophils Absolute Auto 3.4 2.0 - 8.3 x10*3/uL [facility] Imm Gran Abs Auto 0.02 0.00 - 0.03 X10*3/uL [facility] Lymphocytes Absolute Auto 1.4 1.2 - 4.9 X10*3/uL [facility] Monocytes Absolute Auto 0.8 0.1 - 1.2 X10*3/uL [facility] Eosinophils Absolute Auto 0.3 0.0 - 0.4 X10*3/uL [facility] Basophils Absolute Auto 0.1 0.0 - 0.2 X10*3/uL [facility] NRBC Abs Auto 0.000 0.0 - 0.012 X10*3/uL [facility] Blood Venous blood specimen / Unknown 04/23/2025 10:53 AM EDT 04/23/2025 1:57 PM EDT [facility] LAB BLOOD ORDERABLES Ondina l Result Performing Organization Address [facility] Co de Phone Number [facility] [address] [place] [phone] * Prothrombin Time-INR (04/23/2025 10:53 AM EDT) Prothrombin Time 11.6 10.9 - 12.4 SEC [facility] INTERNATIONAL NORM RATIO 1.0 0.9 - 1.1 [facility] Comment:INTERNATIONAL NORMAL IZED RATIO (INR) REFERENCE RANGES Reference RangeFor patients not on anticoagulant therapy: 0.9 - 1.1INR ranges for oral anticoagulanttherapy:For prevention and treatment of venous thrombosis and pulmonary embolism: 2.0 - 3.0For acute myocardial infarction with aspirin therapy: 2.0 - 3.0For acute myocardial infarction without aspirin therapy: 3.0 - 4.0For patients with mechanical prosthetic heart valves: 2.5 - 3.5 Blood Venous blood specimen / Unknown 04/23/2025 10:53 AM EDT 04/23/2025 1:57 PM EDT [facility] LAB BLOOD ORDERABLES Ondina l Result Performing Organization Address [facility] Co de Phone Number [facility] [address] [place] [phone] * (ABNORMAL) Hemoglobin A1c (04/23/2025 10:53 AM EDT) Hemoglobin A1c 7.1(H) <6.0 % [facility] Comment:Hemoglobin A1C Refer ence Range Adults: 4.8 - 6.0 % Non diabetic: < 6.0 % Goal: < 7.0 %Additional Action Suggested: > 8.0 %Note: Hemoglobin A1c results are invalid for patients with abnormal amounts of HbF. Blood transfusions may impact the HbA1c concentration in the patient sample. Estimated Average Glucose 157 mg/dL [facility] Comment:eAG = Estimated ave rage glucose which is %A1C expressed asaverage glucose, using the formula of the Y4C-VvgszedAjuosiy Glucose study (ADAG), Diabetes Care, Vol.31,#8,Mar. 2007 Blood Venous blood specimen / Unknown 04/23/2025 10:53 AM EDT 04/23/2025 1:57 PM EDT [facility] LAB BLOOD ORDERABLES Ondina l Result Performing Organization Address [facility] Co de Phone Number [facility] [address] [place] [phone] * (ABNORMAL) Hepatic Function Panel (04/23/2025 10:53 AM EDT) Bilirubin, Total 0.5 0.0 - 1.0 mg/dL [facility] Bilirubin, Direct 0.2 0.0 - 0.5 mg/dL [facility] Aspartate Amino Transferase 42(H) 5 - 37 U/L [facility] Alanine Aminotransferase 58(H) 0 - 40 U/L [facility] Total Protein 7.5 6.5 - 8.0 g/dL [facility] Albumin Level 4.1 3.5 - 5.0 g/dL [facility] Alkaline Phosphatase 63 39 - 117 U/L [facility] Blood Venous blood specimen / Unknown 04/23/2025 10:53 AM EDT 04/23/2025 1:57 PM EDT [facility] BLOOD ORDERABLES Ondina l Result Performing Organization Address [facility]/State/ZIP Co de Phone Number [facility] [address] [place] [phone] * (ABNORMAL) Basic Metabolic Panel (04/23/2025 10:53 AM EDT) [facility] Sodium 141 135 - 145 mmol/L [facility] Potassium 3.9 3.3 - 5.1 mmol/L [facility] Chloride 103 96 - 108 mmol/L [facility] Carbon Dioxide 30(H) 22 - 29 mmol/L [facility] Anion Gap 12 12 - 20 [facility] Urea Nitrogen (BUN) 12 9 - 16 mg/dL [facility] Creatinine, Serum 0.68 0.5 - 1.4 mg/dL [facility] Estimated Glomerular Filt Rate >60 [facility] Comment:Chronic Kidney Disea se: Estimated GFR < 60 mL/min/[id number] Kidney Disease: Estimated GFR < 15 mL/min/1.73m2 Glucose 114 60 - 115 mg/dL [facility] Calcium 8.9 8.4 - 10.2 mg/dL [facility] Blood Venous blood specimen / Unknown 04/23/2025 10:53 AM EDT 04/23/2025 1:57 PM EDT [facility] LAB BLOOD ORDERABLES Ondina l Result [facility] [address] [place] [phone] * ECG 12 lead (04/23/2025 10:39 AM EDT) Narrative Samantha Mei CNP - 04/23/2025 10:39 AM EDT Rate 66 bpm, NSR, no QR interval prolongation, no ST segmental changes, no acute abnormalities. [facility] ECG ORDERABLES Final Res ult * (ABNORMAL) POCT A1c (04/23/2025 10:07 AM EDT) [facility] Hemoglobin A1C 6.8(A) 4.0 - 5.7 % QC Media Lot # Comment:[id number] Lot# Expiration Date Comment:11/24/2026 Blood 04/23/2025 10:0 7 AM EDT [facility] POINT OF CARE TEST ENTER/ EDIT ORDERABLES Final Result * XR Ankle 3+ Views Right (03/31/2025 9:13 AM EDT) Anatomical Region Laterality Modality Lower Extremities, Ankle Right Radiogr aphic Imaging 03/31/2025 9:13 AM EDT Narrative 03/31/2025 10:29 AM EDT [address] [address] XRay Report Signed Patient: Jacques Hernandez MR#: [id number] : 1965 Acct:[id number] Age/Sex: 59 / M ADM Date: 03/31/25 Loc: .HHCX Attending Dr: Florecita Regalado MD Ordering Physician: Florecita Mejia MD Date of Service: 03/31/25 Procedure(s): XR ankle RT min 3V Accession Number(s): [id number] cc: Florecita Mejia MD EXAMINATION: XR ANKLE [...] Roland Campbell MD 03/31/2025 10:26 AM EDT Dictated By: Roland Campbell MD Signed By: <Electronically signed by Roland Campbell MD in OV> 03/31/25 1026 DD/ 2 TD/TT: 03/31/25915 Tool Crib Lead: Procedure Note Donotuseinterpreter, Image - 03/31/2025 [facility] [address] [place] [address] XRay Report Signed Patient: Eliot Hernandez#: [id number] : 1965Acct:[id number] Age/Sex: 59 / MADM Date: 03/31/25 Loc: HO.HHCX Attending Dr: Florecita Regalado MD Ordering Physician: Florecita Mejia MD Date of Service: 03/31/25 Procedure(s): XR ankle RT min 3V Accession Number(s): [id number] cc: Florecita Mejia MD EXAMINATION: XR ANKLE [...] Roland Campbell MD 03/31/2025 10:26 AM EDT Dictated By: Roland Campbell MD Signed By: <Electronically signed by Roland Campbell MD in OV> 03/31/25 1026 DD/ 2 TD/TT: 03/31/25915 Tool Crib Lead: Florecita Regalado MD IMG XR PROCEDURES Shiv aggie Result - Final * Hepatitis C Antibody with Reflex to HCV, RNA, Quantitative, Real-Time PCR (01/14/2025 2:09 PM EDT) Hepatitis C Antibody Nonreactive Nonreactive [facility] Comment:Antibodies to HCV no t detected; does not exclude early acuteHCV infection. Blood Venous blood specimen / Unknown 01/14/2025 2:09 PM EDT 01/14/2025 4:15 PM EDT us Johann Gilbert MD LAB BLOOD ORDERABLES Final Resul t Performing Organization Address [facility] Co de Phone Number [facility] [address] [place] [phone] * Lipid Panel, Standard (10/16/2024 1:49 PM EST) Triglycerides 118 <150 mg/dL [facility] Comment:Desirable Triglyceri de: less than 150 mg/dLBorderline High Triglyceride 150-199 mg/dLHigh Triglyceride: 200-499 mg/dLVery High Triglyceride: greater than or equal to 5OO mg/dL Cholesterol 160 <200 mg/dL [facility] Comment:Desirable Cholestero l: less than 200 mg/dLBorderline High Cholesterol: 200-239 mg/dLHigh Cholesterol: greater than 239 mg/dL LDL Cholesterol Calculated 95 <100 mg/dL [facility] Comment:Desirable LDL: less than 100 mg/dLNear Optimal/Above Optimal LDL: 110- 129 mg/dLBorderline High LDL: 130-159 mg/dLHigh LDL: 160-189 mg/dLVery High LDL: greater than or equal to 190 mg/dL HDL Cholesterol 42 >40 mg/dL [facility] Comment:Desirable HDL: great er than 40 mg/dL Note: This HDL assay may give artificially low results in patients with liver disease. Blood Venous blood specimen / Unknown 10/16/2024 1:49 PM EST 10/16/2024 4:11 PM EST us Johann Gilbert MD LAB BLOOD ORDERABLES Final Resul t Performing Organization Address [facility] Co de Phone Number [facility] [address] [place] [phone] * Hm Colonoscopy (05/11/2016 11:38 AM EDT) Colonoscopy Normal Normal Narrative Katarina Frias - 05/11/2016 11:38 AM EDT Recommended 10 year follow up Historical Provider HEALTH MAINTENANCE Final Result from Last 3 Months or Most Recently Relevant to Health Maintenance [facility] Care Teams Split Leather Mosser Relationship Specialty Start Date End Date Name, MD Johann [address] [place] [address] PCP - General Family Medicine 10/22/15
--- OUTSIDE RECORDS SUMMARY | 2025-05-20 13:32 | XMS_ITS | Encounter Summary ---
Author Organization [employer] Address [address] [place] [address] [address] [place] [address] Care Team Providers Care Seasonal Package Handler Name Role Phone NameJohann MD Primary Care Provider [phone] Reason for Visit * Reason Comments Med Refill Encounter Details Date Type Department Care Team (Late Contact Info) Description 01/18/2023 Refill [facility] [address] [place] [phone] NameJohann MD [address] [place] [phone] Social History Tobacco Use Types Packs/Day Years [...] EST Office Visit [facility] [address] [place] [phone] Johann Gilbert MD [address] [place] [address] [phone] documented as of this encounter Visit Diagnoses Not on filedocumented in this encounter Care Teams Seasonal Package Handler Relationship Specialty Start Date End Date NameJohann MD [address] [place] [phone] PCP - General Family Medicine 10/22/15 documented as of this encounter
--- OUTSIDE RECORDS SUMMARY | 2025-05-20 13:32 | XMS_ITS | Encounter Summary ---
Author Organization [employer] Address [address] [facility] [address] [place] [address] Care Team Providers Care Manufacturing Technology Professor Name Role Phone Name, Johann CARRERA Primary Care Provider [phone] Reason for Visit * Reason Comments Med Refill Encounter Details Date Type Department Care Team (Late st Contact Info) Description 03/13/2024 Refill [facility] [address] [place], [place] [phone] Name, MD Johann [address] [place] [address] Erectile dysfunction, unspecified erectile dysfunction type Social [...] 10:45 AM EST Office Visit [facility] [address] [place] [phone] NameJohann MD [address] [place] [address] documented as of this encounter Visit Diagnoses Diagnosis Erectile dysfunction, unspecified erectile dysfunction type documented in this encounter Additional Health Concerns Assessment Noted Time PHQ-9 Depression Total Score: 0 11/20/19 24 10:53 AM EDT documented as of this encounter Care Teams Manufacturing Technology Professor Relationship Specialty Start Date End Date NameJohann MD [address] [place] [phone] PCP - General Family Medicine 10/22/15 documented as of this encounter
[2025-05-21 05:17] LABS: HIV Num 1 0.06 S/CO (0.00-0.99)
== END 2025-05-20 12:01 | disposition home or self-care (01) ==
LOC: HO.HHCL 12:00
PROVIDERS: PCP Internal Medicine Geriatric Medicine; Visit Provider Internal Medicine Geriatric Medicine
DX: M19.171 Post-traumatic osteoarthritis, right ankle and foot (principal); M77.50 Other enthesopathy of unspecified foot and ankle; Z11.4 Encounter for screening for human immunodeficiency virus [HIV]
CPT/HCPCS: 36415; 87389

== ENCOUNTER 2025-05-20 14:23 | Outpatient (AMB) | payer MEDICAID, SELFPAY ==
[2025-05-20 14:41] VITALS: BMI 36.0
--- NOTE | 2025-05-20 14:41 | A.OFFVIS_ITS ---
Vital Signs 05/20/25 14:41 Height 5 ft 7 in Weight 230 lb BMI 36.0 Intake Visit Reasons: New Pt-Right ankle pain Intake Note: Jacques is a 59 year old male who presents today as a new patient for an evaluation of his right ankle and foot pain. Patient states he has had this pain for about 5-6 months and is located on the top of his foot and radiates to his ankle. Patient notices swelling in his ankle. He mentions that the pain increases when ambulating and is worse in the morning with his initial step. He reports taking ibuprofen for his pain at this time. IMPRESSION: Mild degenerative change of the tibiotalar joint. Sclerotic focus in the distal tibial metaphysis which could represent a healed nonossifying fibroma. Allergies No Known Allergies Allergy (Verified 05/20/25 14:42) HPI HPI New Pt-Right ankle pain: Details: The patient is a 59-year-old male with past medical history of diabetes mellitus type 2 presents for right foot and ankle pain. He reports a history of an ankle fracture and foot ligamentous injury over 20 years ago, involving fractures of the tibia and fibula and torn ligaments, which were treated with casting. The patient did not undergo surgery at that time. Currently, he experiences pain in the right foot, particularly when walking, and describes it as a sharp pain in the middle of the top of his foot. He also reports pain in the Achilles tendon, which worsens after prolonged activity. Social History: - The patient engages in regular walking and plays pool, which sometimes exacerbates foot pain. [facility] Medical History (Updated 05/20/25 @ 18:34 by Justin Hernandes DPM) Diabetes Asthma Surgical History History of incision and drainage History of colonoscopy Hx of knee surgery Social History Alcohol intake: current Alcohol intake frequency: a few times a week Current occupational status: unemployed Review of Systems Const All systems reviewed & are unremarkable except as noted in HPI and below Physical Exam Vital Signs: BMI result Body Mass Index 36.0 Extrem Other: *Bilateral Lower Extremity Focused Foot/Ankle Exam Vascular: DP/PT 2/4, CFT<3s to digits, TG warm to cool, no pedal edema, pedal hair present Derm: no ecchymosis present to the right foot/ankle. Neuro: Protective sensation grossly intact to bilateral lower extremities. Negative Tinel sign to the intermediate dorsal cutaneous nerve. Msk: mild pain on palpation along the right tarsal metatarsal joints worst to 2/3/4. Mild tenderness on dorsiflexion of the ankle and palpation of the medial/lateral gutters. Deformities: No evidence of hammertoes, bunions, Charcot changes, or other structural abnormalities. Gait: Weight-bearing in supportive shoe-wear Results Reviewed Results Reviewed: Laboratory Tests 04/23/25 10:53 Hemoglobin A1c % 7.1 H Podiatry X-ray Read: 03/31/2025 X-ray right ankle 3 views (AP, Mortise, Lateral) reviewed which shows moderate tibiotalar joint space narrowing, increased minerlization/ ossification to medial and distal borders of the fibula. 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 Possible medial shoulder talus osteochondral defect, lateral shoulder talus subchondral cystic changes. No evidence of swelling, foreign body, or calcifications. I personally reviewed the imaging and my findings are listed above. Assessment & Plan Assessment & Plan (1) Osteoarthritis of ankle: Code(s): M19.079 - Primary osteoarthritis, unspecified ankle and foot Category: Medical Qualifiers: Osteoarthritis type: post-traumatic Laterality: right Qualified Code(s): M19.171 - Post-traumatic osteoarthritis, right ankle and foot Plan: * Reviewed x-rays of his right ankle with the patient. * Patient may require an MRI to evaluate for osteochondral defect of the talus. (2) Pain of midfoot: Code(s): M79.673 - Pain in unspecified foot Category: Medical Plan: * Differential diagnosis includes posttraumatic midfoot arthritis, extensor tendonitis. * Referred for right and left foot x-rays. * Rx diclofenac gel * Recommended over the counter orthotics (Powerstep or Aetrex). (3) Ankle tendinitis: Code(s): M77.50 - Other enthesopathy of unspecified foot and ankle Category: Medical Plan: * Recommended range of motion and stretching exercises. A handout was dispensed to the patient. * Patient may require referral to physical therapy in the future if symptoms do not improve with home therapy. Orders: Orders XR Foot Juan Miguel 3V Today M79.673 - Pain in unspecified foot Medications: New diclofenac sodium 1% (Voltaren Arthritis Pain) apply to single elbow, wrist or hand; for hand includes palm/fingers/back of hand 2 grams topical BID 50 grams 3RF extensor tendinitis M77.50 - Other enthesopathy of unspecified foot and ankle Coding Level of Care Code New Pt Level 4 (33291) Diagnoses Post-traumatic osteoarthritis of right ankle M19.171 Osteoarthritis type: post-traumatic Laterality: right Pain of midfoot M79.673 Ankle tendinitis M77.50 Time Spent (min) 45
== END 2025-05-20 15:03 | disposition home or self-care (01) ==
LOC: HO.HPODS 14:23
PROVIDERS: PCP Internal Medicine Geriatric Medicine; Visit Provider Student in an Organized Health Care Education/Training Program
DX: M19.171 Post-traumatic osteoarthritis, right ankle and foot (principal); M79.673 Pain in unspecified foot; M77.50 Other enthesopathy of unspecified foot and ankle
CPT/HCPCS: 99204

== ENCOUNTER 2025-05-22 12:48 | Outpatient (REF) | payer MEDICAID, SELFPAY ==
--- OUTSIDE RECORDS SUMMARY | 2025-05-20 11:15 | XMS_ITS | Encounter Summary ---
Author Organization [employer] Address [address] [facility] [address] 7[address] [place] [address] Care Team Providers Care Information Operator Name Role Phone Name, Johann CARRERA Primary Care Provider [phone] Reason for Visit * Reason Comments Diabetes Encounter Details Date Type Department Care Team (Latest Contact Info) Description 05/20/2025 11:15 AM EDT Office Visit [facility] [address] [place] [address] Name, MD Johann [address] [place] [address] Type 2 diabetes mellitus with microalbuminuria, without [...] CREATININE 0.68 04/23/2025 Hepatic Function Panel Order: [id number] Status: Final result Dx: Pre-op evaluation Test Result Released: No [facility] Result Notes Component Ref Range & [...] Phosphatase 63 69 67 72 Resulting Agency [facility] Albumin, Random Urine W/Creatinine [...] without long-term current use of insulin (HCC) Comments: Patient is congratulated. Continue current medications, [...] Encounter for immunization - FLU VACCINE TRIVALENT [id number] (Fluarix) 19 yrs + Future Appointments Date Time Provider Department Center 08/18/2025 10:45 AM Johann Gilbert MD MEDICINE [facility] documented in this encounter Plan of Treatment Upcoming Encounters Date Type Department Care Team (Late st Contact Info) Description 08/18/2025 10:45 AM EST Office Visit [facility] MEDICINE [address] [place] [address] Name, MD Johann [address] [place] [address] documented as of this encounter Procedures Procedure Name Priority Date/Time Associated Diagnosis Comments HIV 1/2 ANTIGEN/ANTIBODY, FOURTH GENERATION W/RFL Routine 05/20/2025 12:23 PM EDT Screening for HIV (human immunodeficiency virus) POCT GLUCOSE Routine 05/20/2025 11:28 AM EDT Type 2 diabetes mellitus with microalbuminuria, without long-term current use of insulin (HCC) documented in this encounter Results * HIV-1/2 Antigen and Antibodies, Fourth Generation, with Reflexes (05/20/2025 12:23 PM EDT) HIV AB/AG Nonreactive Nonreactive [facility] Comment:HIV-1 p24 Ag and/or HIV-1/HIV-2 Ab not detected.A test result that is nonreactive does not exclude thepossibility of exposure to or infection with HIV-1 and/orHIV-2. Nonreactive results in this assay for individualswith prior exposure to HIV-1 and/or HIV-2 may be due toantigen and antibody levels that are below the limit ofdetection of this assay.The [employer] HIV Ag/Ab Combo assay result andsupplemental assay results should be interpreted inconjunction with the patient's clinical presentation,history and other laboratory results. If the results areinconsistent with clinical evidence, additional testing issuggested to confirm the result. Blood Venous blood specimen / Unknown 05/20/2025 12:23 PM EDT 05/20/2025 1:05 PM EDT us Johann Gilbert MD LAB BLOOD ORDERABLES Final Resul t [facility] [address] [place] [phone] * POCT Glucose (05/20/2025 11:28 AM EDT) Glucose Blood, POC 163 60 - 200 mg/dL QC Media Lot # [id number] Lot# Expiration Date Blood Capillary blood specimen / Unknown 05/20/2025 11:28 AM EDT us Johann Gilbert MD POINT OF CARE [...] documented as of this encounter Care Teams Information Operator Relationship Specialty Start Date End Date Name, MD Johann [address] [place] [address] PCP - General Family Medicine 10/22/15 documented as of this encounter
--- NOTE | ~2025-05-22 | XR_ITS ---
EXAMINATION: XR FOOT 3 OR MORE VIEWS BILATERAL HISTORY: M79.673 - Pain in unspecified foot COMPARISON: Correlation is made to plain films of the right ankle dated 03/31/2025. FINDINGS: Six views of the bilateral feet are submitted. Osseous mineralization is normal. There is no fracture or dislocation. 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 There is also degenerative change of the right tibiotalar joint. The soft tissues are unremarkable. XR/XR Foot Juan Miguel 3V IMPRESSION: Degenerative changes of the 1st tarsometatarsal joint and the anterior subtalar joint of the right foot. Electronically signed by: Roland Campbell MD 05/22/2025 01:15 PM EDT
--- OUTSIDE RECORDS SUMMARY | 2025-05-22 13:17 | XMS_ITS | Encounter Summary ---
Author Organization [email or web address] Address [address] [place] [address] [address] [place] [address] Care Team Providers Care Mortgage Advisor Name Role Phone Name, Johnan CARRERA Primary Care Provider [phone] Reason for Visit * Reason Comments Med Refill Encounter Details Date Type Department Care Team (Late st Contact Info) Description 12/21/[address] [facility] MEDICINE [address] [place] [address] [phone] Name, MD Johann [address] [place] [address] [phone] Type 2 diabetes mellitus without complication, without long-term current use of insulin ([facility]/HCC) Social History Tobacco Use Types Packs/Day Years [...] Description 08/18/2025 10:45 AM EST Office Visit [facility] MEDICINE [address] [place] [address] [phone] Johann Gilbert MD [address] [place] [phone] documented as of this encounter Visit Diagnoses Diagnosis Type 2 diabetes mellitus without complication, without long-term current use of insulin ([facility]) documented in this encounter Care Teams Mortgage Advisor Relationship Specialty Start Date End Date Name, MD Johann [address] [place] [address] PCP - General Family Medicine 10/22/15 documented as of this encounter
--- OUTSIDE RECORDS SUMMARY | 2025-05-22 13:17 | XMS_ITS | Encounter Summary ---
Author Organization [employer] Address [address] [place] [address] 7t [place] [address] Care Team Providers Care Utility Accounts Director Name Role Phone Name, Johann CARRERA Primary Care Provider [phone] Encounter Details Date Type Department Care Team (Late st Contact Info) Description 01/22/2023 Abstract [facility] MEDICINE [address] [place] [phone] Name, MD Johann [address] [place] [address] [phone] Social History Tobacco Use Types Packs/Day Years [...] Description 08/18/2025 10:45 AM EST Office Visit [facility] MEDICINE [address] [place] [address] [phone] Name, MD Johann [address] [place] [address] [phone] documented as of this encounter Procedures Procedure [...] on filedocumented in this encounter Care Teams Utility Accounts Director Relationship Specialty Start Date End Date Name, MD Johann [address] [place] [address] PCP - General Family Medicine 10/22/15 documented as of this encounter
--- OUTSIDE RECORDS SUMMARY | 2025-05-22 13:17 | XMS_ITS | Encounter Summary ---
Author Organization [employer] Address [address] [facility] 7t [place] [address] Care Team Providers Care Retail Planning Manager Name Role Phone Name, Johann CARRERA Primary Care Provider [phone] Reason for Visit * Reason Comments Med Refill Encounter Details Date Type Department Care Team (Late st Contact Info) Description 03/13/2024 Refill [facility] MEDICINE [address] [place], [place] [phone] Name, MD Johann [address] [place] [address] Erectile dysfunction, unspecified erectile dysfunction type Social [...] Description 08/18/2025 10:45 AM EST Office Visit [facility] MEDICINE [address] [place] [phone] NameJohann MD [address] [place] [address] documented as of this encounter Visit Diagnoses Diagnosis Erectile dysfunction, unspecified erectile dysfunction type documented in this encounter Additional Health Concerns Assessment Noted Time PHQ-9 Depression Total Score: 0 11/20/19 24 10:53 AM EDT documented as of this encounter Care Teams Retail Planning Manager Relationship Specialty Start Date End Date NameJohann MD [address] [place] [phone] PCP - General Family Medicine 10/22/15 documented as of this encounter
--- OUTSIDE RECORDS SUMMARY | 2025-05-22 13:17 | XMS_ITS | Encounter Summary ---
Author Organization [employer] Address [address] [place] [address] 7 [place] [address] Care Team Providers Care Hand Cloth Folder Name Role Phone NameJohann MD Primary Care Provider [phone] Reason for Visit * Reason Comments Med Refill Encounter Details Date Type Department Care Team ([facility] Contact Info) Description 12/20/[address] [facility] MEDICINE [address] [place] [phone] NameJohann MD [address] [place] [address] Social History Tobacco Use Types Packs/Day Years [...] Description 08/18/2025 10:45 AM EST Office Visit [facility] MEDICINE [address] [place] [phone] Johann Gilbert MD [address] [place] [address] [phone] documented as of this encounter Visit Diagnoses Not on filedocumented in this encounter Care Teams Hand Cloth Folder Relationship Specialty Start Date End Date NameJohann MD [address] [place] [phone] PCP - General Family Medicine 10/22/15 documented as of this encounter
--- OUTSIDE RECORDS SUMMARY | 2025-05-22 13:17 | XMS_ITS | Encounter Summary ---
Author Organization [employer] Address [address] [facility] 7t [place] [address] Care Team Providers Care Printer Assistant Name Role Phone Name, Johann CARRERA Primary Care Provider [phone] Reason for Visit * Reason Onset Date Comments Appointment Request 02/04/2024 Encounter Details Date Type Department Care Team ([facility] st Contact Info) Description 02/04/2024 Telephone [facility] MEDICINE [address], [place] [phone] Name, MD Johann [address] [place] [address] Appointment Request Social History Tobacco Use Types [...] now. Pt. Advised to give call to [facility] if any question and concern. Pt. Verbally agreed and understood, * Telephone Encounter - Benito Hua - 02/04/2024 3:16 PM EDT Tc from pt is having surgery done on the and was advised to follow up with pcp regarding A1C. Pt already had a pre op visit in [facility] and stated they faxed pre op notes over for pt to follow up on A1C. Please contact pt at [phone]. documented in this encounter Plan of Treatment Upcoming Encounters Date Type Department Care Team (Late st Contact Info) Description 08/18/2025 10:45 AM EST Office Visit [facility] MEDICINE [address] [place] [address] Name, MD Johann [address] [place] [address] documented as of this encounter Visit Diagnoses Not on filedocumented in this encounter Additional Health Concerns Assessment Noted Time PHQ-9 Depression Total Score: 0 11/20/19 24 10:53 AM EDT documented as of this encounter Care Teams Printer Assistant Relationship Specialty Start Date End Date Name, MD Johann [address] [place] [address] PCP - General Family Medicine 10/22/15 documented as of this encounter
--- OUTSIDE RECORDS SUMMARY | 2025-05-22 13:17 | XMS_ITS | Encounter Summary ---
Author Organization [employer] Address [address] [place] [address] 7 [place] [address] Care Team Providers Care Nail Machine Operator Name Role Phone NameJohann MD Primary Care Provider [phone] Reason for Visit * Reason Comments Med Refill Encounter Details Date Type Department Care Team (Late Contact Info) Description 01/18/2023 Refill [facility] MEDICINE [address] [place] [phone] NameJohann MD [address] [place] [address] Social History Tobacco Use Types Packs/Day Years [...] Office Visit [facility] MEDICINE [address] [place] [phone] Johann Gilbert MD [address] [place] [address] [phone] documented as of this encounter Visit Diagnoses Not on filedocumented in this encounter Care Teams Nail Machine Operator Relationship Specialty Start Date End Date NameJohann MD [address] [place] [phone] PCP - General Family Medicine 10/22/15 documented as of this encounter
--- OUTSIDE RECORDS SUMMARY | 2025-05-22 13:18 | XMS_ITS | Encounter Summary ---
Author Organization [employer] Address [address] [place] [address] Care Team Providers Care Pipe Cleaner Name Role Phone Name, Johann CARRERA Primary Care Provider [phone] Reason for Visit * Reason Onset Date Comments Nurse Triage 08/28/2023 Encounter Details Date Type Department Care Team ([facility] st Contact Info) Description 08/28/2023 Telephone [facility] MEDICINE [address] [place], [place] [phone] Name, MD Johann [address] [place] [address] Nurse Triage Social History Tobacco Use Types [...] the past 12 months, has t he [employer], gas, oil or water [employer] threatened to shut off services in your [...] again and if not successful come to [facility] for provider to take alook at [...] accepted this outcome Please contact pt at [phone] documented in this encounter Plan of Treatment Upcoming Encounters Date Type Department Care Team (Late st Contact Info) Description 08/18/2025 10:45 AM EST Office Visit [facility] MEDICINE [address] [place] [phone] Name, MD Johann [address] [place] [phone] documented as of this encounter Visit Diagnoses Not on filedocumented in this encounter Care Teams Pipe Cleaner Relationship Specialty Start Date End Date Name, MD Johann [address] [place] [phone] PCP - General Family Medicine 10/22/15 documented as of this encounter
--- OUTSIDE RECORDS SUMMARY | 2025-05-22 13:18 | XMS_ITS | Encounter Summary ---
Author Organization [employer] Address [address] [place] [address] [address] [place] [address] Care Team Providers Care Retail Sales Merchandiser Development Name Role Phone NameJohann MD Primary Care Provider [phone] Reason for Visit * Reason Comments Med Refill Encounter Details Date Type Department Care Team (Late Contact Info) Description 01/19/2023 Refill [facility] MEDICINE [address] [place] [phone] NameJohann MD [address] [place] [address] Social History Tobacco Use Types Packs/Day Years [...] Description 08/18/2025 10:45 AM EST Office Visit [facility] MEDICINE [address] [place] [phone] Johann Gilbert MD [address] [place] [address] [phone] documented as of this encounter Visit Diagnoses Not on filedocumented in this encounter Care Teams Retail Sales Merchandiser Development Relationship Specialty Start Date End Date NameJohann MD [address] [place] [phone] PCP - General Family Medicine 10/22/15 documented as of this encounter
--- OUTSIDE RECORDS SUMMARY | 2025-05-22 13:18 | XMS_ITS | Clinical Summary ---
Author Organization [employer] Address [address] [facility] 7t [place] [address] Care Team Providers Care Rainbow Trout Farm Manager Name Role Phone Name, Johann CARRERA Primary Care Provider [phone] Allergies No known active allergies Medications glucose blood (FREESTYLE LITE) test stripIndicatio ns:Type 2 diabetes mellitus without complication, without long-term current use of insulin ([facility]) TEST BLOOD SUGAR ONCE DAILY 50 strip [...] Encounters Date Type Department Care Team Description 05/21/2025 Results Follow-Up [facility] [address] [place] [phone] Johann Gilbert MD POCT Glucose, HIV-1/2 Antigen and Antibodies, Fourth Generation, with Reflexes 05/20/2025 11:15 AM EDT Office Visit [facility] [address] [place] [address] Johann Gilbert MD Type 2 diabetes mellitus with microalbuminuria, without long-term current use of insulin ([facility]) (Primary Dx); Hypertension, unspecified type; Screening for HIV (human immunodeficiency virus); Encounter for immunization 05/20/2025 Travel 04/23/2025 10:00 AM EDT Office Visit [facility] [address] [place] [address] Samantha Mei CNP Moderate persistent asthma, unspecified whether complicated (Primary Dx); Sleep apnea, unspecified type; Primary hypertension; Type 2 diabetes mellitus with microalbuminuria, without long-term current use of insulin (CMS/HCC); Pre-op evaluation 04/23/2025 Telephone [facility] [address] [place] [address] Samantha Mei CNP Pre-op Exam 04/23/2025 Telephone [facility] [address] [place] [address] Johann Gilbert MD 04/23/2025 Travel 04/23/2025 Telephone [facility] [address] [place] [address] Johann Gilbert MD chart prep 04/22/2025 Telephone [facility] [address] [place] [address] Johann Gilbert MD Pre-op Visit 04/22/2025 Telephone [facility] [address] [place] [address] Kiersten Holman, PIYUSH 04/16/2025 Telephone [facility] [address] [place] [address] Johann Gilbert MD Med Refill 03/31/2025 9:40 AM EDT Office Visit [facility] [address] [place] [address] Florecita Mejia MD Acute right ankle pain 03/31/2025 Results Follow-Up [address] [address] Florecita Mejia MD XR Ankle 3+ Views Right 03/31/2025 Travel 03/30/2025 Refill [facility] [address] [place] [address] Johann Gilbert MD Erectile dysfunction, unspecified erectile dysfunction type 03/12/2025 Refill [facility] [address] [place] [address] Johann Gilbert MD Moderate persistent asthma, unspecified whether complicated 02/24/2025 Telephone [facility] [address] [place] [address] Johann Gilbert MD Results 02/22/2025 Refill [facility] [address] [place] [address] Johann Gilbert MD Moderate persistent asthma, unspecified whether complicated 02/19/2025 Telephone [facility] [address] [place] [address] Pepito Zhu [place] april recalls from Last [...] AM EST Office Visit [facility] [address] [place] [address] Name, MD Johann [address] [place] [address] Health Maintenance Due Date Last Done Comments CT Colonography 1965 FIT DNA/Cologuard 1965 FIT 1965 FOBT 1965 Sigmoidoscopy 1965 Alcohol/Substance Use Screening 1976 [...] history exists Hepatitis C Screening Completed 01/14/2025 HIV Screening Completed 05/20/2025 Influenza Vaccine Completed 05/20/2025, , 06/06/2023, Additional [...] without long-term current use of insulin (HCC) ALBUMIN, RANDOM URINE W/CREATININE Routine 04/23/2025 11:00 [...] Recently Relevant to Health Maintenance Results * HIV-1/2 Antigen and Antibodies, Fourth Generation, with Reflexes (05/20/2025 12:23 PM EDT) Pathologist [facility] HIV AB/AG Nonreactive Nonreactive [facility] Comment:HIV-1 p24 Ag and/or HIV-1/HIV-2 Ab not detected.A test result that is nonreactive does not exclude thepossibility of exposure to or infection with HIV-1 and/orHIV-2. Nonreactive results in this assay for individualswith prior exposure to HIV-1 and/or HIV-2 may be due toantigen and antibody levels that are below the limit ofdetection of this assay.The Fetch It HIV Ag/Ab Combo assay result andsupplemental assay results should be interpreted inconjunction with the patient's clinical presentation,history and other laboratory results. If the results areinconsistent with clinical evidence, additional testing issuggested to confirm the result. Blood Venous blood specimen / Unknown 05/20/2025 12:23 PM EDT 05/20/2025 1:05 PM EDT Johann Gilbert MD LAB BLOOD ORDERABLES Final Resul t [facility] [address] [place] [address] [phone] * POCT Glucose (05/20/2025 11:28 AM [...] 11:00 AM EDT) Creatinine, Urine 103.87 mg/dL [facility] Microalbumin Urine 34.0 mg/L [facility] Microalbum Creatinine Ratio Ur 32.7(H) <30 ug/mg cr [facility] Comment:Albumin/Creatinine R atio Reference Ranges: Normal: < 30 ug/mg creatinine Microalbuminuria: 30 - 300 ug/mg creatinineClinical Albuminuria: > 300 ug/mg creatinine Urine (Urine, Random) 04/23/2025 11:00 AM EDT 04/23/2025 1:57 PM EDT Samantha Mei [facility] LAB URINE ORDERABLES Ondina l Result [facility] [address] [place] [address] [phone] * (ABNORMAL) CBC auto differential (04/23/2025 10:53 AM EDT) White Blood Count 6.0 4.8 - 10.8 X10*3/uL [facility] Red Blood Count 4.61 4.60 - 5.80 X10*6/uL [facility] Hemoglobin 13.5(L) 14.0 - 18.0 g/dl [facility] Hematocrit 42.8 42.0 - 52.0 % [facility] Mean Corpuscular Volume 92.8 80.0 - 98.0 fL [facility] Mean Corpuscular Hemoglobin 29.3 27.0 - 33.0 pg [facility] Mean Corpuscular HGB Conc 31.5 31.0 - 36.0 g/dl [facility] Red Cell Distribution Width 15.0 11.0 - 16.0 % [facility] Platelet Count 259 160 - 400 X10*3/uL [facility] Mean Platelet Volume 10.2 9.4 - 12.4 fL [facility] Neutrophils Percent Auto 56.6 45 - 73 % [facility] Imm Gran Pct Auto 0.3 0.0 - 0.4 % [facility] Lymphocytes Percent Auto 23.4 20 - 40 % [facility] Monocytes Percent Auto 14.0(H) 2 - 11 % [facility] Eosinophils Percent Auto 4.5(H) 0 - 4 % [facility] Basophils Percent Auto 1.2 0 - 2 % [facility] NRBC Pct Auto 0.0 0.0 - 0.2 /100WBC [facility] Neutrophils Absolute Auto 3.4 2.0 - 8.3 x10*3/uL [facility] Imm Gran Abs Auto 0.02 0.00 - 0.03 X10*3/uL [facility] Lymphocytes Absolute Auto 1.4 1.2 - 4.9 X10*3/uL [facility] Monocytes Absolute Auto 0.8 0.1 - 1.2 X10*3/uL [facility] Eosinophils Absolute Auto 0.3 0.0 - 0.4 X10*3/uL [facility] Basophils Absolute Auto 0.1 0.0 - 0.2 X10*3/uL [facility] NRBC Abs Auto 0.000 0.0 - 0.012 X10*3/uL [facility] Blood Venous blood specimen / Unknown 04/23/2025 10:53 AM EDT 04/23/2025 1:57 PM EDT [facility] LAB BLOOD ORDERABLES Ondina l Result Performing Organization Address [facility] [address] [facility] Co de Phone Number [facility] [address] [place] [phone] * Prothrombin Time-INR (04/23/2025 10:53 AM EDT) Prothrombin Time 11.6 10.9 - 12.4 SEC [facility] INTERNATIONAL NORM RATIO 1.0 0.9 - 1.1 [facility] Comment:INTERNATIONAL NORMAL IZED RATIO (INR) REFERENCE [...] 10:53 AM EDT 04/23/2025 1:57 PM EDT [facility] LAB BLOOD ORDERABLES Ondina l Result Performing Organization Address [facility] [address]/[facility] Co de Phone Number [facility] [address] [place] [phone] * (ABNORMAL) Hemoglobin A1c (04/23/2025 10:53 AM EDT) Hemoglobin A1c 7.1(H) <6.0 % [facility] Comment:Hemoglobin A1C Refer ence Range Adults: 4.8 - 6.0 % Non diabetic: < 6.0 % Goal: < 7.0 %Additional Action Suggested: > 8.0 %Note: Hemoglobin A1c results are invalid for patients with abnormal amounts of HbF. Blood transfusions may impact the HbA1c concentration in the patient sample. Estimated Average Glucose 157 mg/dL [facility] Comment:eAG = Estimated ave rage glucose which is %A1C expressed asaverage glucose, using the formula of the J1W-SyhgrnuNmitjaw Glucose study (ADAG), Diabetes Care, Vol.31,#8,Mar. 2007 Blood Venous blood specimen / Unknown 04/23/2025 10:53 AM EDT 04/23/2025 1:57 PM EDT [facility] LAB BLOOD ORDERABLES Ondina l Result Performing Organization Address [facility] [address]/[facility] Co de Phone Number [facility] [address] [place] [phone] * (ABNORMAL) Hepatic Function Panel (04/23/2025 10:53 AM EDT) Bilirubin, Total 0.5 0.0 - 1.0 mg/dL [facility] Bilirubin, Direct 0.2 0.0 - 0.5 mg/dL [facility] Aspartate Amino Transferase 42(H) 5 - 37 U/L [facility] Alanine Aminotransferase 58(H) 0 - 40 U/L [facility] Total Protein 7.5 6.5 - 8.0 g/dL [facility] Albumin Level 4.1 3.5 - 5.0 g/dL [facility] Alkaline Phosphatase 63 39 - 117 U/L [facility] Blood Venous blood specimen / Unknown 04/23/2025 10:53 AM EDT 04/23/2025 1:57 PM EDT [facility] LAB BLOOD ORDERABLES Ondina l Result Performing Organization Address [facility] [address]/[facility] Co de Phone Number [facility] [address] [place] [phone] * (ABNORMAL) Basic Metabolic Panel (04/23/2025 10:53 AM EDT) Sodium 141 135 - 145 mmol/L [facility] Potassium 3.9 3.3 - 5.1 mmol/L [facility] Chloride 103 96 - 108 mmol/L [facility] Carbon Dioxide 30(H) 22 - 29 mmol/L [facility] Anion Gap 12 12 - 20 [facility] Urea Nitrogen (BUN) 12 9 - 16 mg/dL [facility] Creatinine, Serum 0.68 0.5 - 1.4 mg/dL [facility] Estimated Glomerular Filt Rate >60 [facility] Comment:Chronic Kidney Disea se: Estimated GFR < 60 mL/min/1.47m5Euqljt Kidney Disease: Estimated GFR < 15 mL/min/1.73m2 Glucose 114 60 - 115 mg/dL [facility] Calcium 8.9 8.4 - 10.2 mg/dL [facility] Blood Venous blood specimen / Unknown 04/23/2025 10:53 AM EDT 04/23/2025 1:57 PM EDT Result [facility] LAB BLOOD ORDERABLES Ondina l Result [facility] [address] [place] [address] [phone] * ECG 12 lead (04/23/2025 10:39 AM EDT) Narrative Samantha Mei CNP - 04/23/2025 10:39 AM EDT Rate 66 bpm, NSR, no QR interval prolongation, no ST segmental changes, no acute abnormalities. [facility] ECG ORDERABLES Final Res ult * (ABNORMAL) POCT A1c (04/23/2025 10:07 AM EDT) Hemoglobin A1C 6.8(A) 4.0 - 5.7 % QC Media Lot # Comment:[id number] Lot# Expiration Date Comment:11/24/2026 Blood 04/23/2025 10:0 7 AM EDT Result [facility] POINT OF CARE TEST ENTER/ EDIT ORDERABLES Final Result * XR Ankle 3+ Views Right (03/31/2025 9:13 AM EDT) Anatomical Region Laterality Modality Lower Extremities, Ankle Right Radiogr aphic Imaging 03/31/2025 9:13 AM EDT Narrative 03/31/2025 10:29 AM EDT [facility] [address] [place] [address] XRay Report Signed Patient: Jacques Hernandez MR#: [id number] : 1965 Acct:[id number] Age/Sex: 59 / M ADM Date: 03/31/25 Loc: .HHCX Attending Dr: Florecita Regalado MD Ordering Physician: Florecita Mejia MD Date of Service: 03/31/25 Procedure(s): XR ankle RT min 3V Accession Number(s): [id number] cc: Florecita Mejia MD EXAMINATION: XR ANKLE [...] Campbell MD in OV> 03/31/25 1026 DD/ TD/TT: 03/31/25 0916 Drying And Winding Supervisor: Procedure Note Donotuseinterpreter, Image - 03/31/2025 [facility] [address] [place] [address] XRay Report Signed Patient: Adam HernandezR#: [id number] : 1965Acct:[id number] Age/Sex: 59 / MADM Date: 03/31/25 Loc: HO.HHCX Attending Dr: Florecita Regalado MD Ordering Physician: Florecita Mejia MD Date of Service: 03/31/25 Procedure(s): XR ankle RT min 3V Accession Number(s): [id number] cc: Florecita Mejia MD EXAMINATION: XR ANKLE [...] Campbell MD in OV> 03/31/25 1026 DD/ TD/TT: 03/31/25 0916 Drying And Winding Supervisor: us Florecita Regalado MD IMG XR PROCEDURES Shiv aggie Result - Final * Hepatitis C Antibody with Reflex to HCV, RNA, Quantitative, Real-Time PCR (01/14/2025 2:09 PM EDT) Hepatitis C Antibody Nonreactive Nonreactive [facility] Comment:Antibodies to HCV no t detected; does not exclude early acuteHCV infection. Blood Venous blood specimen / Unknown 01/14/2025 2:09 PM EDT 01/14/2025 4:15 PM EDT us Johann Gilbert MD LAB BLOOD ORDERABLES Final Resul t Performing Organization Address City/[facility] [address]/[facility] Co de Phone Number [facility] [address] [place] [phone] [phone] * Lipid Panel, Standard (10/16/2024 1:49 PM EST) Triglycerides 118 <150 mg/dL [facility] Comment:Desirable Triglyceri de: less than 150 mg/dLBorderline High Triglyceride 150-199 mg/dLHigh Triglyceride: 200-499 mg/dLVery High Triglyceride: greater than or equal to 5OO mg/dL Cholesterol 160 <200 mg/dL [facility] Comment:Desirable Cholestero l: less than 200 mg/dLBorderline High Cholesterol: 200-239 mg/dLHigh Cholesterol: greater than 239 mg/dL LDL Cholesterol Calculated 95 <100 mg/dL [facility] Comment:Desirable LDL: less than 100 mg/dLNear Optimal/Above Optimal LDL: 110- 129 mg/dLBorderline High LDL: 130-159 mg/dLHigh LDL: 160-189 mg/dLVery High LDL: greater than or equal to 190 mg/dL HDL Cholesterol 42 >40 mg/dL [facility] Comment:Desirable HDL: great er than 40 mg/dL Note: This HDL assay may give artificially low results in patients with liver disease. Blood Venous blood specimen / Unknown 10/16/2024 1:49 PM EST 10/16/2024 4:11 PM EST us Johann Gilbert MD LAB BLOOD ORDERABLES Final Resul t Performing Organization Address [facility] [address]/[facility] Co de Phone Number [facility] [address] [place] [phone] [phone] * Hm Colonoscopy (05/11/2016 11:38 AM EDT) Colonoscopy Normal Normal Narrative Katarina Frias - 05/11/2016 11:38 AM EDT Recommended 10 year follow up Historical Provider HEALTH MAINTENANCE Final Result from Last 3 Months or Most Recently Relevant to Health Maintenance Insurance [facility] C3 Care Teams Rainbow Trout Farm Manager Relationship Specialty Start Date End Date Name, MD Johann [address] [place] [phone] PCP - General Family Medicine 10/22/15
--- OUTSIDE RECORDS SUMMARY | 2025-05-22 13:18 | XMS_ITS | Encounter Summary ---
Author Organization [employer] Address [address] [facility] [address] [place] [address] Care Team Providers Care Acid Etch Operator Name Role Phone Name, Johann CARRERA Primary Care Provider [phone] Encounter Details Date Type Department Care Team [...] Description 08/18/2025 10:45 AM EST Office Visit [facility] [address] [place] [phone] Name, MD Johann [address] [place] [address] documented as of this encounter Visit Diagnoses Not on filedocumented in this encounter Additional Health Concerns Assessment Noted Time PHQ-9 Depression Total Score: 1 01/07/20 25 11:05 AM EDT documented as of this encounter Care Teams Acid Etch Operator Relationship Specialty Start Date End Date NameJohann MD [address] [place] [phone] PCP - General Family Medicine 10/22/15 documented as of this encounter
--- OUTSIDE RECORDS SUMMARY | 2025-05-22 13:18 | XMS_ITS | Encounter Summary ---
Author Organization [employer] Address [address] [facility] [address] [place] [address] Care Team Providers Care Data Services Developer Name Role Phone Name, Johann CARRERA Primary Care Provider [phone] Encounter Details Date Type Department Care Team ([facility] st Contact Info) Description 12/18/2023 Telephone [facility] [address] [place], [place] [phone] Name, MD Johann [address] [place] [address] Social History Tobacco Use Types Packs/Day Years [...] 10:45 AM EST Office Visit [facility] [address] [place] [phone] NameJohann MD [address] [place] [address] documented as of this encounter Visit Diagnoses Not on filedocumented in this encounter Additional Health Concerns Assessment Noted Time PHQ-9 Depression Total Score: 0 11/20/19 24 10:53 AM EDT documented as of this encounter Care Teams Data Services Developer Relationship Specialty Start Date End Date Name, MD Johann [address] [place] [address] PCP - General Family Medicine 10/22/15 documented as of this encounter
--- OUTSIDE RECORDS SUMMARY | 2025-05-22 13:18 | XMS_ITS | Encounter Summary ---
Author Organization [employer] Address [address] [facility] 7t [place] [address] Care Team Providers Care Filling Hauler Name Role Phone Name, Johann CARRERA Primary Care Provider [phone] Encounter Details Date Type Department Care Team ([facility] st Contact Info) Description 03/15/2023 Telephone [facility] [address] [place], [place] [phone] Name, MD Johann [address] [place] [address] Social History Tobacco Use Types Packs/Day Years [...] Nova Peters - 03/15/2023 2:43 PM EDT [employer] Teacher refaxed referral to [phone]. * Telephone Encounter - Kirstin Yoder RN - 03/15/2023 11:04 AM EDT TC placed to Dr. Krishnan's office at [facility] ([phone]), they report they only received 1 page of referral just listing pt. Dx. And demographic information. They are requesting office visit note from when pt. Was referred as well as face sheet including insurance information along with referral. Please fax to [phone], thank you! * Telephone Encounter - Doris Roman - 03/15/2023 9:36 AM EDT Tc from pt states Dr Krishnan is requesting more information on DX for hand specialist referral. Fax to [phone]. documented in this encounter Plan of Treatment Upcoming Encounters Date Type Department Care Team (Late st Contact Info) Description 08/18/2025 10:45 AM EST Office Visit [facility] [address] [place] [address] Name, MD Johann [address] [place] [address] documented as of this encounter Visit Diagnoses Not on filedocumented in this encounter Care Teams Filling Hauler Relationship Specialty Start Date End Date Name, MD Johann [address] [place] [address] PCP - General Family Medicine 10/22/15 documented as of this encounter
--- OUTSIDE RECORDS SUMMARY | 2025-05-22 13:18 | XMS_ITS | Encounter Summary ---
Author Organization [employer] Address [address] [facility] 7t [place] [address] Care Team Providers Care Volunteer Services Specialist Name Role Phone Name, Johann CARRERA Primary Care Provider [phone] Reason for Visit * Reason Comments Med Refill Encounter Details Date Type Department Care Team (Late st Contact Info) Description 10/27/2024 Refill [facility] [address] [place], [place] [phone] Name, MD Johann [address] [place] [address] Hypertension, unspecified type Social History Tobacco Use [...] Description 08/18/2025 10:45 AM EST Office Visit [facility] [address] [place] [address] Name, MD Johann [address] [place] [address] documented as of this encounter Visit Diagnoses Diagnosis Hypertension, unspecified type documented in this encounter Additional Health Concerns Assessment Noted Time PHQ-9 Depression Total Score: 0 11/20/19 24 10:53 AM EDT documented as of this encounter Care Teams Volunteer Services Specialist Relationship Specialty Start Date End Date NameJohann MD [address] [place] [address] PCP - General Family Medicine 10/22/15 documented as of this encounter
--- OUTSIDE RECORDS SUMMARY | 2025-05-22 13:18 | XMS_ITS | Clinical Summary ---
Author Organization [address] [facility] Address [address] [place] [address] Phone Care Team Providers Care Machine Taper Name Role Phone Josh Prado MD Primary [...] topic Insurance MEDICA[place] - [place] Care Teams Machine Taper Relationship Specialty Start Date End Date Josh Prado MD [address] [place] [phone] PCP - General 10/28/12
--- OUTSIDE RECORDS SUMMARY | 2025-05-22 13:18 | XMS_ITS | Encounter Summary ---
Author Organization [employer] Address [address] [facility] 7t [place] [address] Care Team Providers Care Blue Line Hanger Name Role Phone Name, Johann CARRERA Primary Care Provider [phone] Reason for Visit * Reason Comments Med Refill Encounter Details Date Type Department Care Team (Late st Contact Info) Description 12/01/2024 Refill [facility] [address] [place], [place] [phone] Name, MD Johann [address] [place], [place] [phone] Type 2 diabetes mellitus without complication, without long-term current use of insulin ([facility]) Social History Tobacco Use Types Packs/Day Years [...] [facility] [address] [place] [address] Name, MD Johann [address] [place] [address] documented as of this encounter Visit Diagnoses Diagnosis Type 2 diabetes mellitus without complication, without long-term current use of insulin (HCC) documented in this encounter Additional Health Concerns Assessment Noted Time PHQ-9 Depression Total Score: 0 11/20/19 24 10:53 AM EDT documented as of this encounter Care Teams Blue Line Hanger Relationship Specialty Start Date End Date NameJohann MD [address] [place] [address] PCP - General Family Medicine 10/22/15 documented as of this encounter
--- OUTSIDE RECORDS SUMMARY | 2025-05-22 13:18 | XMS_ITS | Encounter Summary ---
Author Organization [employer] Address [address] [place] [address] Care Team Providers Care Radiologist Chief Of Breast Imaging Name Role Phone Name, Johann CARRERA Primary Care Provider [phone] Reason for Visit * Reason Comments Med Refill Encounter Details Date Type Department Care Team (Late st Contact Info) Description 11/12/2023 Refill [facility] MEDICINE [address] [place], [place] [phone] Name, MD Johann [address] [place] [address] Acute pain of right shoulder; Asthma, unspecified [...] Description 08/18/2025 10:45 AM EST Office Visit [facility] [address] [place] [address] Name, MD Johann [address] [place] [address] documented as of this encounter Visit Diagnoses Diagnosis Acute pain of right shoulder Asthma, unspecified asthma severity, unspecified whether complicated, unspecified whether persistent documented in this encounter Care Teams Radiologist Chief Of Breast Imaging Relationship Specialty Start Date End Date Name, MD Johann [address] [place] [address] PCP - General Family Medicine 10/22/15 documented as of this encounter
--- OUTSIDE RECORDS SUMMARY | 2025-05-22 13:18 | XMS_ITS | Encounter Summary ---
Author Organization [employer] Address [address] [place] [address] 7t [place] [address] Care Team Providers Care Rail Track Maintainer Name Role Phone NameJohann MD Primary Care Provider [phone] Encounter Details Date Type Department Care Team (Late st Contact Info) Description 08/01/2022 Orders Only [facility] MED & PEDS [address] [place] [address] Marsha Juares LPN Social History Tobacco Use [...] Office Visit [facility] MEDICINE [address] [place] [address] NameJohann MD [address] [place] [address] documented as of this encounter Visit Diagnoses Not on filedocumented in this encounter Care Teams Rail Track Maintainer Relationship Specialty Start Date End Date Johann Gilbert MD [address] [place] [address] PCP - General Family Medicine 10/22/15 documented as of this encounter
--- OUTSIDE RECORDS SUMMARY | 2025-05-22 13:18 | XMS_ITS | Encounter Summary ---
Author Organization [employer] Address [address] [facility] 7t [place] [address] Care Team Providers Care Pyrotechnic Assembler Name Role Phone Name, Johann CARRERA Primary Care Provider [phone] Reason for Visit * Reason Onset Date Comments Med Refill 04/16/2025 Encounter Details Date Type Department Care Team ([facility] st Contact Info) Description 04/16/2025 Telephone [facility] MEDICINE [address] [place], [place] [phone] Name, MD Johann [address] [place] [address] Med Refill Social History Tobacco Use Types [...] Description 08/18/2025 10:45 AM EST Office Visit [facility] MEDICINE [address] [place] [address] NameJohann MD [address] [place] [address] documented as of this encounter Visit Diagnoses Not on filedocumented in this encounter Additional Health Concerns Assessment Noted Time PHQ-9 Depression Total Score: 1 01/07/20 25 11:05 AM EDT documented as of this encounter Care Teams Pyrotechnic Assembler Relationship Specialty Start Date End Date Name, MD Johann [address] [place] [address] PCP - General Family Medicine 10/22/15 documented as of this encounter
--- OUTSIDE RECORDS SUMMARY | 2025-05-22 13:18 | XMS_ITS | Encounter Summary ---
Author Organization [employer] Address [address] [place] [address] 7t [place] [address] Care Team Providers Care Administrative Tech Name Role Phone NameJohann MD Primary Care Provider [phone] Encounter Details Date Type Department Care Team (Late st Contact Info) Description 08/23/2022 Orders Only [facility] CHC MED & PEDS [address] [place] [address] Marsha Juares LPN Social History Tobacco Use [...] [facility] [address] [place] [address] NameJohann MD [address] [place] [address] documented as of this encounter Visit Diagnoses Not on filedocumented in this encounter Care Teams Administrative Tech Relationship Specialty Start Date End Date Johann Gilbert MD [address] [place] [address] PCP - General Family Medicine 10/22/15 documented as of this encounter
--- OUTSIDE RECORDS SUMMARY | 2025-05-22 13:18 | XMS_ITS | Encounter Summary ---
Author Organization [employer] Address [address] [facility] [facility] [address] [place] [address] Care Team Providers Care Mechanical Engineering Lecturer Name Role Phone Name, Johann CARRERA Primary Care Provider [phone] Encounter Details Date Type Department Care Team ([facility] st Contact Info) Description 05/21/2025 Results Follow-Up [facility] MEDICINE [address] [place], [place] [phone] Name, MD Johann [address] [place] [address] POCT Glucose, HIV-1/2 Antigen and Antibodies, Fourth Generation, with Reflexes Social History Tobacco Use Types Packs/Day Years [...] Description 08/18/2025 10:45 AM EST Office Visit [facility] MEDICINE [address] [place] [address] NameJohann MD [address] [place] [address] documented as of this encounter Visit Diagnoses Not on filedocumented in this encounter Additional Health Concerns Assessment Noted Time PHQ-9 Depression Total Score: 1 01/07/20 25 11:05 AM EDT documented as of this encounter Care Teams Mechanical Engineering Lecturer Relationship Specialty Start Date End Date Name, MD Johann [address] [place] [address] PCP - General Family Medicine 10/22/15 documented as of this encounter
== END 2025-05-22 12:49 | disposition home or self-care (01) ==
LOC: HO.XRAY 12:48
PROVIDERS: PCP Internal Medicine Geriatric Medicine; Visit Provider Student in an Organized Health Care Education/Training Program
DX: M79.671 Pain in right foot (principal); M79.672 Pain in left foot
CPT/HCPCS: 73630

== ENCOUNTER → 2025-05-22 12:54 | Outpatient (BNV) | payer MEDICAID, SELFPAY | PROVIDERS: PCP Internal Medicine Geriatric Medicine; Visit Provider Radiology Diagnostic Radiology | DX: M19.071 Primary osteoarthritis, right ankle and foot (principal); M79.672 Pain in left foot | CPT/HCPCS: 73630 ==

== ENCOUNTER 2025-06-11 13:03 | Outpatient (AMB) | payer MEDICAID, SELFPAY ==
--- NOTE | 2025-06-11 13:17 | A.OFFVIS_ITS ---
Vital Signs 06/11/25 13:50 Height 5 ft 7 in Weight 230 lb BMI 36.0 Intake Visit Reasons: follow up left foot fracture and ankle pain - left Intake Note: Jacques is a 59 year old male who presents to the office today for a follow up for a right foot fracture and ankle pain. At previous visit patient was instructed to complete foot X-ray. X-ray was completed and in chart for review. Pt states he has been following the stretching exercises that was recommended and has been using the diclofenac medication and found relief for his pain. Allergies No Known Allergies Allergy (Verified 06/11/25 13:50) HPI HPI follow up left foot fracture and ankle pain - left: Details: The patient is a 59-year-old male with past medical history of diabetes mellitus type 2 returns for right foot and ankle pain. He has been doing stretching and yyvwj-ml-wcaeyk exercises to bilateral feet and ankles, noting improvement in his right Achilles tendon pain. He also has pain to the top of his foot which has mildly improved, still has occasional soreness. Patient states he has been using the diclofenac gel, which is also helping. He has not yet purchased rtoh-poe-mllkyql orthotics. History: He reports a history of an ankle fracture and foot ligamentous injury over 20 years ago, involving fractures of the tibia and fibula and torn ligaments, which were treated with casting. The patient did not undergo surgery at that time. Currently, he experiences pain in the right foot, particularly when walking, and describes it as a sharp pain in the middle of the top of his foot. He also reports pain in the Achilles tendon, which worsens after prolonged activity. Social History: - The patient engages in regular walking and plays pool, which sometimes exacerbates foot pain. [facility] Medical History (Updated 06/11/25 @ 13:56 by Justin Hernandes DPM) Diabetes Asthma Surgical History History of incision and drainage History of colonoscopy Hx of knee surgery Social History Alcohol intake: current Alcohol intake frequency: a few times a week Current occupational status: unemployed Review of Systems Const All systems reviewed & are unremarkable except as noted in HPI and below Physical Exam Extrem Other: *Bilateral Lower Extremity Focused Foot/Ankle Exam Vascular: DP/PT 2/4, CFT<3s to digits, TG warm to cool, no pedal edema, pedal hair present Derm: Hyperkeratotic lesions to the plantar right 1st 2nd and 5th metatarsal joints. No underlying wounds or ulcerations. Neuro: Protective sensation grossly intact to bilateral lower extremities. Negative Tinel sign to the intermediate dorsal cutaneous nerve. Msk: decreased but persistent mild pain on palpation along the right tarsal metatarsal joints worst to 2/3/4. No tenderness on dorsiflexion of the ankle and palpation of the medial/lateral gutters. Deformities: No evidence of hammertoes, bunions, Charcot changes, or other structural abnormalities. Gait: Weight-bearing in supportive shoe-wear Results Reviewed Results Reviewed: Laboratory Tests 04/23/25 10:53 Hemoglobin A1c % 7.1 H Podiatry X-ray Read: 03/31/2025 X-ray right ankle 3 views (AP, Mortise, Lateral) reviewed which shows moderate tibiotalar joint space narrowing, increased minerlization/ ossification to medial and distal borders of the fibula. 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 Possible medial shoulder talus osteochondral defect, lateral shoulder talus subchondral cystic changes. No evidence of swelling, foreign body, or calcifications. I personally reviewed the imaging and my findings are listed above. Podiatry X-ray Read: 05/22/2025 X-ray right foot 3 views (AP, MO, Lateral) nonweightbearing reviewed which shows bipartite tibial and fibular sesamoid 1st Metatarsal-phalangeal joint, mild joint space narrowing of the 2nd and 3rd tarsometatarsal joints. No fractures, dislocations, or gross abnormalities. Bone density is within normal limits. Mild subtalar joint narrowing. No evidence of swelling, foreign body, or calcifications. I personally reviewed the imaging and my findings are listed above. Podiatry X-ray Read: 05/22/2025 X-ray left foot 3 views (AP, MO, Lateral) reviewed which shows dorsal exostosis over the talar neck, moderate plantar calcaneal spur. Mild joint space narrowing of the 2nd tarsometatarsal joint, moderate joint space narrowing of the 3rd tarsometatarsal joint. no fractures, dislocations. Bone density is within normal limits. Normal anatomy. No evidence of swelling, foreign body, or calcifications. I personally reviewed the imaging and my findings are listed above. Assessment & Plan Assessment & Plan (1) Pain of midfoot: Code(s): M79.673 - Pain in unspecified foot Category: Medical Qualifiers: Laterality: right Qualified Code(s): M79.671 - Pain in right foot Plan: * Differential diagnosis includes posttraumatic midfoot arthritis, extensor tendonitis. * Reviewed right foot x-rays with the patient. * Discussed possible cortisone injection in the future. * Referred for custom foot orthotics to offload the midfoot and prevent further progression of midfoot arthritis, as well as offload the plantar forefoot. The patient requires orthotics due to his history of diabetes mellitus and his high arch foot type, which causes increased loading to the forefoot. The patient does have hyperkeratotic lesions which can be a site of breakdown and ulcer formation in the future. (2) Ankle tendinitis: Code(s): M77.50 - Other enthesopathy of unspecified foot and ankle Category: Medical Plan: * Continue stretching and syjfu-gp-yghwrs exercises. * Patient may require referral to physical therapy in the future if symptoms do not improve with home therapy. (3) Osteoarthritis of ankle: Code(s): M19.079 - Primary osteoarthritis, unspecified ankle and foot Category: Medical Qualifiers: Osteoarthritis type: post-traumatic Laterality: right Qualified Code(s): M19.171 - Post-traumatic osteoarthritis, right ankle and foot Plan: * Reviewed x-rays of his right ankle with the patient. * Patient may require an MRI to evaluate for osteochondral defect of the talus. However, most of his symptoms to his ankle are improved at this point. We will hold off on any further testing. (4) Diabetes: Code(s): E11.9 - Type 2 diabetes mellitus without complications Category: Medical Qualifiers: Diabetes mellitus complication status: without complication Diabetes mellitus assisted insulin use: without assisted use Diabetes mellitus type: type 2 Qualified Code(s): E11.9 - Type 2 diabetes mellitus without complications Plan: * Given his elevated A1c, the patient is at risk of developing pedal complications of diabetes. He was recommended supportive shoes and orthotics to prevent any possible ulcerations and breakdown. Medications: New [Custom foot orthotics] Custom foot orthotics. Full length. Deep heal seat. Standard arch fill. 1 ea 0RF Coding Level of Care Code Est Pt Level 3 (46905) Diagnoses Pain of right midfoot M79.671 Laterality: right Ankle tendinitis M77.50 Post-traumatic osteoarthritis of right ankle M19.171 Osteoarthritis type: post-traumatic Laterality: right Type 2 diabetes mellitus without complication, without long-term current use of insulin E11.9 Diabetes mellitus complication status: without complication Diabetes mellitus assisted insulin use: without terminal system operator use Diabetes mellitus type: type 2 Time Spent (min) 35
[2025-06-11 13:50] VITALS: BMI 36.0
--- OUTSIDE RECORDS SUMMARY | 2025-06-11 16:27 | XMS_ITS | Clinical Summary ---
Author Organization [address] [facility] Address [address] [place] [address] Phone Care Team Providers Care Occupational Health Nurse Name Role Phone Josh Prado MD Primary [...] 1974 Diabetes: Annual Retina Eye Exam 1974 RSV Immunization Adult Patients (1 - Risk 50-74 years 1-dose series) 2014 HIV Screening 09/18/2023 Social Influencers of Health Screening 09/18/2023 Diabetes: Annual Urine Albumin-Creatinine Ratio (uACR) 08/06/2024 Depression Screening 08/20/2024 Diabetes: Blood Sugar Control Test (HGBA1C) 03/10/2025 [...] topic Insurance MEDICAID - [place] Care Teams Occupational Health Nurse Relationship Specialty Start Date End Date Josh Prado MD [address] [place] [phone] PCP - General 10/28/12
== END 2025-06-11 13:27 | disposition home or self-care (01) ==
LOC: HO.HPODS 13:04
PROVIDERS: PCP Internal Medicine Geriatric Medicine; Visit Provider Student in an Organized Health Care Education/Training Program
DX: M79.671 Pain in right foot (principal); M77.50 Other enthesopathy of unspecified foot and ankle; M19.171 Post-traumatic osteoarthritis, right ankle and foot; E11.9 Type 2 diabetes mellitus without complications
CPT/HCPCS: 99213

== ENCOUNTER → 2025-06-11 13:03 | Outpatient (BNVA) | payer MEDICAID, SELFPAY | PROVIDERS: PCP Internal Medicine Geriatric Medicine; Visit Provider Student in an Organized Health Care Education/Training Program | DX: M79.671 Pain in right foot (principal); M77.50 Other enthesopathy of unspecified foot and ankle; M19.171 Post-traumatic osteoarthritis, right ankle and foot; E11.9 Type 2 diabetes mellitus without complications | CPT/HCPCS: 99212 ==

== ENCOUNTER 2025-08-05 11:23 | Outpatient (AMB) | payer MEDICAID, SELFPAY ==
--- NOTE | 2025-08-05 11:25 | A.OFFVIS_ITS ---
Intake Visit Reasons: orthorthic check up Intake Note: Jacques is a 59 year old male who presents to the office today for an orthotic check up. Pt states he is sore in his feet and ankles. Patient was able to go get his feet molded but hasnt heard from them. Allergies No Known Allergies Allergy (Verified 08/05/25 11:31) HPI HPI orthorthic check up: Details: The patient is a 59-year-old male with past medical history of diabetes mellitus type 2 returns for bilateral foot and ankle pain. He has been doing stretching and lrbpn-yz-lxults exercises to bilateral feet and ankles but the times a week, but still experiencing symptoms that are not resolving. Patient states he has been using the diclofenac gel, which is also helping. He has not yet purchased fxfn-rls-wsxsxdl orthotics. History: He reports a history of an ankle fracture and foot ligamentous injury over 20 years ago, involving fractures of the tibia and fibula and torn ligaments, which were treated with casting. The patient did not undergo surgery at that time. Currently, he experiences pain in the right foot, particularly when walking, and describes it as a sharp pain in the middle of the top of his foot. He also reports pain in the Achilles tendon, which worsens after prolonged activity. Social History: - The patient engages in regular walking and plays pool, which sometimes exacerbates foot pain. [facility] Medical History (Updated 06/11/25 @ 13:56 by Justin Hernandes DPM) Diabetes Asthma Surgical History History of incision and drainage History of colonoscopy Hx of knee surgery Social History Alcohol intake: current Alcohol intake frequency: a few times a week Current occupational status: unemployed Review of Systems Const All systems reviewed & are unremarkable except as noted in HPI and below Physical Exam Extrem Other: *Bilateral Lower Extremity Focused Foot/Ankle Exam Vascular: DP/PT 2/4, CFT<3s to digits, TG warm to cool, no pedal edema, pedal hair present Derm: Hyperkeratotic lesions to the plantar right 1st 2nd and 5th metatarsal joints. No underlying wounds or ulcerations. Neuro: Protective sensation grossly intact to bilateral lower extremities. Negative Tinel sign to the intermediate dorsal cutaneous nerve. Msk: Moderate tenderness on palpation Achilles tendon insertion bilateral feet, left worse than right. Ankle dorsiflexion 0 degrees bilaterally. persistent mild pain on palpation along the right tarsal metatarsal joints worst to 2/3/4. No tenderness on dorsiflexion of the ankle and palpation of the medial/lateral gutters. Deformities: No evidence of hammertoes, bunions, Charcot changes, or other st ructural abnormalities. Gait: Weight-bearing in supportive shoe-wear Assessment & Plan Assessment & Plan (1) Ankle tendinitis: Code(s): M77.50 - Other enthesopathy of unspecified foot and ankle Category: Medical Plan: * Continue stretching and sgvsw-ov-pfjppe exercises. * Referred to physical therapy * Rx Medrol Dosepak. instructed the patient to check his glucose at home to make sure it is not elevated (2) Osteoarthritis of ankle: Code(s): M19.079 - Primary osteoarthritis, unspecified ankle and foot Category: Medical Qualifiers: Osteoarthritis type: post-traumatic Laterality: right Qualified Code(s): M19.171 - Post-traumatic osteoarthritis, right ankle and foot Plan: * Reviewed x-rays of his right ankle with the patient. * Patient may require an MRI to evaluate for osteochondral defect of the talus. However, most of his symptoms to his ankle are improved at this point. We will hold off on any further testing. (3) Pain of midfoot: Code(s): M79.673 - Pain in unspecified foot Category: Medical Qualifiers: Laterality: right Qualified Code(s): M79.671 - Pain in right foot Plan: * Differential diagnosis includes posttraumatic midfoot arthritis, extensor tendonitis. * Reviewed right foot x-rays with the patient. * Discussed possible cortisone injection in the future. * Referred for custom foot orthotics to offload the midfoot and prevent further progression of midfoot arthritis, as well as offload the plantar forefoot. The patient requires orthotics due to his history of diabetes mellitus and his high arch foot type, which causes increased loading to the forefoot. The patient does have hyperkeratotic lesions which can be a site of breakdown and ulcer formation in the future. Orders: Orders PT Evaluation and Treatment Today M77.50 - Other enthesopathy of unspecified foot and ankle Medications: New methylprednisolone (Medrol (Freddy)) Take 6 tablets on day 1, 5 tablets on day 2, 4 tablets on day 3, 3 tablets on day 4, 2 tablets on day 5, and 1 tablet on day 6. 4 mg PO PER PKG DIR 21 ea 0RF achilles tendinitis M77.50 - Other enthesopathy of unspecified foot and ankle Coding Level of Care Code Est Pt Level 3 (59463) Diagnoses Ankle tendinitis M77.50 Post-traumatic osteoarthritis of right ankle M19.171 Osteoarthritis type: post-traumatic Laterality: right Pain of right midfoot M79.671 Laterality: right Time Spent (min) 20
--- OUTSIDE RECORDS SUMMARY | 2025-08-05 15:07 | XMS_ITS | Encounter Summary ---
Author Organization [employer] Address [address] [facility] 7t [place] [address] Care Team Providers Care Gum Sprayer Name Role Phone Name, Johann CARRERA Primary Care Provider [phone] Reason for Visit * Reason Onset Date Comments Appointment Request 02/04/2024 Encounter Details Date Type Department Care Team ([facility] st Contact Info) Description 02/04/2024 Telephone [facility] MEDICINE [address] [place], [place] [phone] Name, MD Johann [address] [place] [address] Appointment Request Social History Tobacco Use Types [...] now. Pt. Advised to give call to [facility] if any question and concern. [...] up on A1C. Please contact pt at [phone]. documented in this encounter Plan of Treatment Upcoming Encounters Date Type Department Care Team (Late st Contact Info) Description 08/18/2025 10:45 AM EST Office Visit [facility] MEDICINE [address] [place], [place] [phone] Name, MD Johann [address] [place] [address] 11/05/2025 1:30 PM EDT Office Visit [facility] OPTOMETRY [address] [place] [address] Raya Jordan, OD [address] [place] [address] documented as of this encounter Visit Diagnoses Not on filedocumented in this encounter Additional Health Concerns Assessment Noted Time PHQ-9 Depression Total Score: 0 11/20/19 24 10:53 AM EDT documented as of this encounter Care Teams Gum Sprayer Relationship Specialty Start Date End Date Name, MD Johann [address] [place] [address] PCP - General Family Medicine 10/22/15 documented as of this encounter
--- OUTSIDE RECORDS SUMMARY | 2025-08-05 15:07 | XMS_ITS | Encounter Summary ---
Author Organization [employer] Address [address] [place] [address] [address]t [place] [address] Care Team Providers Care Room Service Attendant Name Role Phone Name, Johann CARRERA Primary Care Provider [phone] Reason for Visit * Reason Comments Med Refill Encounter Details Date Type Department Care Team (Late st Contact Info) Description 01/18/2023 Refill [facility] MEDICINE [address] [place] [address] [phone] NameJohann MD [address] [place] [phone] Social History Tobacco Use Types Packs/Day Years [...] Description 08/18/2025 10:45 AM EST Office Visit [facility] MEDICINE [address] [place], [place] [phone] Johann Gilbert MD [address] [place] [address] [phone] 11/05/2025 1:30 PM EDT Office Visit [facility] OPTOMETRY [address] [place], [place] [phone] Raya Jordan, OD [address] [place] [address] documented as of this encounter Visit Diagnoses Not on filedocumented in this encounter Care Teams Room Service Attendant Relationship Specialty Start Date End Date Name, MD Johann [address] [place] [address] PCP - General Family Medicine 10/22/15 documented as of this encounter
--- OUTSIDE RECORDS SUMMARY | 2025-08-05 15:07 | XMS_ITS | Encounter Summary ---
Author Organization [employer] Address [address] [facility] 7t [place] [address] Care Team Providers Care Block Sawyer Name Role Phone Name, Johann CARRERA Primary Care Provider [phone] Reason for Visit * Reason Comments Med Refill Encounter Details Date Type Department Care Team ([facility] st Contact Info) Description 03/13/2024 Refill [facility] MEDICINE [address] [place], [place] [phone] Name, MD Johann [address] [place] [address] Erectile dysfunction, unspecified erectile dysfunction type Social [...] Description 08/18/2025 10:45 AM EST Office Visit [facility] [address] [place] [address] NameJohann MD [address] [place] [address] 11/05/2025 1:30 PM EDT Office Visit [facility] OPTOMETRY [address] [place] [address] Tarka Raya, OD [address] [place] [address] documented as of this encounter Visit Diagnoses Diagnosis Erectile dysfunction, unspecified erectile dysfunction type documented in this encounter Additional Health Concerns Assessment Noted Time PHQ-9 Depression Total Score: 0 11/20/19 24 10:53 AM EDT documented as of this encounter Care Teams Block Sawyer Relationship Specialty Start Date End Date Johann Gilbert MD [address] [place] [phone] PCP - General Family Medicine 10/22/15 documented as of this encounter
--- OUTSIDE RECORDS SUMMARY | 2025-08-05 15:07 | XMS_ITS | Encounter Summary ---
Author Organization [employer] Address [address] [place] [address] 7t [place] [address] Care Team Providers Care Investigator Cash Shortage Name Role Phone Name, Johann CARRERA Primary Care Provider [phone] Reason for Visit * Reason Comments Med Refill Encounter Details Date Type Department Care Team (Late st Contact Info) Description 12/20/2022 Refill [facility] [address] [place] [address] [phone] NameJohann MD [address] [place] [phone] Social History Tobacco Use Types Packs/Day Years [...] Description 08/18/2025 10:45 AM EST Office Visit [facility] [address] [place], [place] [phone] Johann Gilbert MD [address] [place] [address] [phone] 11/05/2025 1:30 PM EDT Office Visit [facility] OPTOMETRY [address] [place], [place] [phone] Raya Jordan, OD 267 [place] [address] documented as of this encounter Visit Diagnoses Not on filedocumented in this encounter Care Teams Investigator Cash Shortage Relationship Specialty Start Date End Date Name, MD Johann [address] [place] [phone] PCP - General Family Medicine 10/22/15 documented as of this encounter
--- OUTSIDE RECORDS SUMMARY | 2025-08-05 15:07 | XMS_ITS | Encounter Summary ---
Author Organization [employer] Address [address] [place] [address] 7t [place] [address] Care Team Providers Care Nurse Licensed Practical Name Role Phone Name, Johann CARRERA Primary Care Provider [phone] Reason for Visit * Reason Comments Med Refill Encounter Details Date Type Department Care Team (Late st Contact Info) Description 12/21/2022 Refill [facility] MED[facility]INE [address] [place] [address] [phone] Name, MD Johann [address] [place] [phone] Type 2 diabetes mellitus without complication, without long-term current use of insulin ([facility]) Social History Tobacco Use Types Packs/Day [...] 08/18/2025 10:45 AM EST Office Visit [facility] MEDICINE [address] [place], [place] [phone] Johann Gilbert MD [address] [place] [address] [phone] 11/05/2025 1:30 PM EDT Office Visit [facility] OPTOMETRY [address] [place] [phone] Nikki Raya, OD [address] [place] [address] documented as of this encounter Visit Diagnoses Diagnosis Type 2 diabetes mellitus without complication, without long-term current use of insulin (HCC) documented in this encounter Care Teams Nurse Licensed Practical Relationship Specialty Start Date End Date Name, MD Johann 230 [place] [address] PCP - General Family Medicine 10/22/15 documented as of this encounter
--- OUTSIDE RECORDS SUMMARY | 2025-08-05 15:08 | XMS_ITS | Encounter Summary ---
Author Organization [employer] Address [address] [place] [address] 7t [place] [address] Care Team Providers Care Fire Hazard Inspector Name Role Phone Name, Johann CARRERA Primary Care Provider [phone] Reason for Visit * Reason Comments Med Refill Encounter Details Date Type Department Care Team (Late st Contact Info) Description 01/19/2023 Refill [facility] MEDICINE [address] [place] [address] [phone] NameJohann MD [address] [place] [phone] Social History Tobacco Use Types Packs/Day Years [...] 10:45 AM EST Office Visit [facility] MEDICINE 230 [place], [place] [phone] Johann Gilbert MD [address] [place] [address] [phone] 11/05/2025 1:30 PM EDT Office Visit [facility] OPTOMETRY [address] [place], [place] [phone] Raya Jordan, OD [address] [place] [address] documented as of this encounter Visit Diagnoses Not on filedocumented in this encounter Care Teams Fire Hazard Inspector Relationship Specialty Start Date End Date Name, MD Johann [address] [place] [phone] PCP - General Family Medicine 10/22/15 documented as of this encounter
--- OUTSIDE RECORDS SUMMARY | 2025-08-05 15:08 | XMS_ITS | Encounter Summary ---
Author Organization [employer] Address [address] [place] [address] 7t [place] [address] Care Team Providers Care Associate Material Handler Name Role Phone Name, Johann CARRERA Primary Care Provider [phone] Encounter Details Date Type Department Care Team (Late st Contact Info) Description 01/22/[address] [facility] MED[facility]INE [address] [place] [phone] NameJohann MD [address] [place] [address] Social History Tobacco Use Types Packs/Day Years [...] Description 08/18/2025 10:45 AM EST Office [address] [facility] [address] [place] [address] Name, MD Johann [address] [place] [address] [phone] 11/05/2025 1:30 PM EDT Office Visit [facility] OPTOMETRY [address] [place], [place] [phone] Raya Jordan, OD 267 [place] [address] documented as of this encounter Procedures Procedure [...] on filedocumented in this encounter Care Teams Associate Material Handler Relationship Specialty Start Date End Date Name, MD Johann 230 [place] [address] PCP - General Family Medicine 10/22/15 documented as of this encounter
--- OUTSIDE RECORDS SUMMARY | 2025-08-05 15:09 | XMS_ITS | Encounter Summary ---
Author Organization [employer] Address [address] [facility] [address] 7t [place] [address] Care Team Providers Care Food Checker Name Role Phone Name, Johann CARRERA Primary Care Provider [phone] Reason for Visit * Reason Comments Med Refill Encounter Details Date Type Department Care Team (Late st Contact Info) Description 11/12/2023 Refill [facility] 230 [place], [place] [phone] Name, MD Johann 230 [place] [address] Acute pain of right shoulder; Asthma, unspecified [...] Description 08/18/2025 10:45 AM EST Office Visit [facility] [address] [place] [address] NameJohann MD [address] [place] [address] 11/05/2025 1:30 PM EDT Office Visit [facility] [address] [place] [address] Raya Jordan, OD 267 [place] [address] documented as of this encounter Visit Diagnoses Diagnosis Acute pain of right shoulder Asthma, unspecified asthma severity, unspecified whether complicated, unspecified whether persistent documented in this encounter Care Teams Food Checker Relationship Specialty Start Date End Date NameJohann MD [address] [place] [phone] PCP - General Family Medicine 10/22/15 documented as of this encounter
--- OUTSIDE RECORDS SUMMARY | 2025-08-05 15:09 | XMS_ITS | Clinical Summary ---
Author Organization [employer] Address [address] [facility] 7t [place] [address] Care Team Providers Care Principal Web Developer Name Role Phone Name, Johann CARRERA Primary Care Provider [phone] Allergies No known active allergies Medications glucose blood (FREESTYLE LITE) test stripIndicatio ns:Type 2 diabetes mellitus without complication, without long-term current use of insulin ([facility]) TEST BLOOD SUGAR ONCE DAILY 50 strip [...] 16 g 2 09/10/19 25 2025 Active montelukast (Singulair) 10 MG tabletIndicati ons:Moderate [...] USE. 12 g 1 03/12/20 25 Active omega-3 (FISH OIL) 300 MG capsule 0 Refills, Maintenance, 01/08/24 13:05:00 EDT, Partial fill upon patient request if the prescription is for a schedule II opioid drug. 01/08/20 24 Active ibuprofen 600 MG tablet Take 1 tablet by mouth every 6 (six) hours if needed. Active aspirin 81 MG EC tablet Take 81 mg by mouth Once per day. Active atorvastatin (Lipitor) 20 MG tabletIndicati ons:Type 2 diabetes mellitus without complication, without long-term current use of insulin (HCC) TAKE 1 TABLET(20 MG) BY MOUTH DAILY 90 tablet 1 06/01/20 25 Active losartan (Cozaar) 25 MG tabletIndicati ons:Hypertensi on, unspecified type TAKE 1 TABLET BY MOUTH EVERY MORNING 90 tablet 3 07/24/20 25 Active sildenafil (Viagra) 50 MG tabletIndicati ons:Erectile dysfunction, unspecified erectile dysfunction type TAKE 1 TABLET 1 HOUR BEFORE SEXUAL RELATIONS ONCE DAILY NEEDED. 10 tablet 1 5 4:35 PM EST 07/24/20 Active losartan (Cozaar) 25 MG tabletIndicati ons:Hypertensi on, unspecified type Take 1 tablet (25 mg) by mouth in the morning. 90 tablet 3 05/20/20 25 2024 Discontinued(R eorder (will not trigger notification to Pharmacy)) sildenafil (Viagra) 50 MG tabletIndicati ons:Erectile dysfunction, unspecified erectile dysfunction type TAKE 1 TABLET 1 HOUR BEFORE SEXUAL RELATIONS ONCE DAILY NEEDED. 10 tablet 1 06/18/20 25 2024 Discontinued(R eorder (will not trigger [...] hematuria 12/31/2012 Combined drug dependence excluding opioids ([facility]) 02/01/2012 Tobacco dependence syndrome 02/01/2012 Encounters Date Type Department Care Team Description 07/24/2025 Refill [facility] MEDICINE [address] [place], [place] [phone] Johann Gilbert MD Erectile dysfunction, unspecified erectile dysfunction type 07/24/2025 Refill [facility] MED[facility] [address] [place], [place] [phone] Johann Gilbert MD Hypertension, unspecified type; Erectile dysfunction, unspecified erectile dysfunction type 07/18/2025 Refill [facility] MED[facility]INE [address] [place], [place] [phone] Johann Gilbert MD Hypertension, unspecified type 06/22/2025 Telephone [facility] MEDICINE [address] [place], [place] [phone] Johann Gilbert MD Prior Authorization 06/18/2025 Refill [facility] MED[facility]INE [address] [place] [address] Johann Gilbert MD Erectile dysfunction, unspecified erectile dysfunction type 05/31/2025 Refill [facility] MED[facility]INE [address] [place] [address] Johann Gilbert MD Type 2 diabetes mellitus without complication, without long-term current use of insulin (HCC) 05/22/2025 Orders Only [facility] External Provider, [facility] 05/21/2025 Results Follow-Up [facility] [address] [place] [address] Johann Gilbert MD POCT Glucose, HIV-1/2 Antigen and Antibodies, Fourth Generation, with Reflexes 05/20/2025 11:15 AM EDT Office Visit [facility] [address] [place] [address] Johann Gilbert MD Type 2 diabetes mellitus with microalbuminuria, without long-term current use of insulin ([facility]) (Primary Dx); Hypertension, unspecified type; Screening for HIV (human immunodeficiency virus); Encounter for immunization 05/20/2025 Travel from Last 3 Months Immunizations Immunization Administration [...] Visit [facility] MEDICINE [address] [place], [place] [phone] Name, MD Johann [address] [place] [address] 11/05/2025 1:30 PM EDT Office Visit [facility] OPTOMETRY [address] [place], [place] [phone] Tarka, Raya, OD [address] [place] [address] Health Maintenance Due Date Last Done Comments CT Colonography 1965 FIT DNA/Cologuard 1965 FIT 1965 FOBT 1965 Sigmoidoscopy 1965 Alcohol/Substance Use Screening 1976 RSV Patients and Patients Aged 60 years or older (1 - Risk 50-74 years 1-dose series) 2014 COVID-19 Vaccine ( season) 2025 07/07/2024, 01/18/2022, 07/27/2021, Additional history exists Diabetes: Hemoglobin A1C 07/23/20252 025, 04/23/2025, 09/10/2024, Additional history exists Diabetes: Foot Exam 09/10/2025 09/10/2024, 09/10/2024, 09/10/2024, Additional history exists Lipid Panel 10/16/2025 10/16/2024, 120 03/2023, 10/11/2022, Additional history exists Eye Exam 10/27/2025 10/27/2024, 10/18, 10/27/2024, Additional history exists Depression Screening 01/06/2026 01/06/2025, 01/07/20 Disability Screening 01/06/2026 01/06/2025 SDOH Screening 01/06/2026 01/06/2025 Colonoscopy 05/11/2026 05/11/2016 Colorectal Cancer Screening 05/11/2026 Tobacco Screening 05/20/2026 05/20/2025 DTaP/Tdap/Td Vaccines (3 - Td or Tdap) 07/20/2033 07/20/2023, 09/22/2011 Hepatitis A Vaccines Aged Out 09/22/2011, 12/10/19 11 No longer eligible based on patient's age to complete this topic Hepatitis B Vaccines Completed 09/22/2011, 02/06/2011, 12/09/2010 Zoster Vaccines Completed 01/27/2020, 10/22/2019 Pneumococcal Vaccine: 50+ Years Completed 07/20/2023, 10/02/2011 Hepatitis C Screening Completed 01/14/2025 HIV Screening [...] on patient's age to complete this topic Goals Goal Patient Goal Type Associated Problems Recent Progress Patient-Stated? Author Help patients manage their type 2 diabetes Care Plan Help patients manage their type 2 diabetes No Darya Hua Weekly blood pressure task Care Plan Weekly blood pressure task No Darya Hua Help patients manage their type 2 diabetes Care Plan Help patients manage their type 2 diabetes No Darya Hua Patient has chronic kidney disease Care Plan Patient has chronic kidney disease No Darya Hua Weekly blood pressure task Care Plan Weekly blood pressure task No Darya Hua Patient has chronic kidney disease Care Plan Patient has chronic kidney disease No Darya Hua Weekly blood pressure task Care Plan Weekly blood pressure task No Darya Hua Weekly blood pressure task Care Plan Weekly blood pressure task No Darya Hua Patient has chronic kidney disease Care Plan Patient has chronic kidney disease No Darya Hua Patient has chronic kidney disease Care Plan Patient has chronic kidney disease No Darya Hua Procedures Procedure Name Priority Date/Time Associated Diagnosis Comments XR FOOT 3+ VIEWS BILATERAL Routine 05/22/2025 1:03 PM EDT HIV 1/2 ANTIGEN/ANTIBODY, FOURTH GENERATION W/RFL Routine 05/20/2025 12:23 PM EDT Screening for HIV (human immunodeficiency virus) POCT GLUCOSE Routine 05/20/2025 11:28 AM EDT Type 2 diabetes mellitus with microalbuminuria, without long-term current use of insulin (HCC) POCT GLYCATED HEMOGLOBIN, TOTAL Routine 04/23/2025 10:07 AM EDT Type 2 diabetes mellitus with microalbuminuria, without long-term current use of insulin (CMS/HCC) HEPATITIS C AB W/REFL TO HCV RNA, QN, PCR Routine 01/14/2025 2:09 PM EDT Need for hepatitis C screening test LIPID PANEL, STANDARD Routine 10/16/2024 1:49 PM EST Type 2 diabetes mellitus without complication, without long-term current use of insulin (CMS/HCC) HM COLONOSCOPY Routine 05/11/2016 11:38 AM EDT from Last 3 Months or Most Recently Relevant to Health Maintenance Results * XR Foot 3+ Views Bilateral (05/22/2025 1:03 PM EDT) Anatomical Region Laterality Modality Lower Extremities, Foot Bilateral Radiogra phic Imaging 05/22/2025 1:03 PM EDT Narrative 05/22/2025 1:19 PM EDT [address] [address] XRay Report Signed Patient: Jacques Hernandez MR#: [id number] : 1965 Acct:[id number] Age/Sex: 59 / M ADM Date: 05/22/25 Loc: [facility] Attending Dr: Justin Hernandes DPM Ordering Physician: Justin Hernandes DPM Date of Service: 05/22/25 Procedure(s): XR Foot Juan Miguel 3V Accession Number(s): [id number] cc: Ofelia,Johann CARRERA; Justin Hernandes DPM Reason for Exam: M79.673 - Pain in unspecified foot EXAMINATION: XR FOOT 3 OR MORE VIEWS BILATERAL HISTORY: M79.673 - Pain in unspecified foot COMPARISON: Correlation is made to plain films of the right ankle dated 03/31/2025. FINDINGS: Six views of the bilateral feet are submitted. Osseous mineralization is normal. There is no fracture or dislocation. 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 There is also degenerative change of the right tibiotalar joint. The soft tissues are unremarkable. XR/XR Foot Juan Miguel 3V IMPRESSION: Degenerative changes of the 1st tarsometatarsal joint and the anterior subtalar joint of the right foot. Electronically signed by: Roland Campbell MD 05/22/2025 01:15 PM EDT Dictated By: Roland Campbell MD Signed By: <Electronically signed by Roland Campbell MD in OV> 05/22/25 1315 DD/ 1303 TD/TT: 05/22/25 1308 Home Maker: Procedure Note Donotuseinterpreter, Image - 05/22/[address] [address] XRay Report Signed Patient: Eliot Hernandez#: [id number] : 1965Acct:[id number] Age/Sex: 59 / MADM Date: 05/22/25 Loc: [facility] Attending Dr: Justin Hernandes DPM Ordering Physician: Justin Hernandes DPM Date of Service: 05/22/25 Procedure(s): XR Foot Juan Miguel 3V Accession Number(s): [id number] cc: Name,Johann CARRERA; Justin Hernandes DPM Reason for Exam: M79.673 - Pain in unspecified foot EXAMINATION: XR FOOT 3 OR MORE VIEWS BILATERAL HISTORY: M79.673 - Pain in unspecified foot COMPARISON: Correlation is made to plain films of the right ankle dated 03/31/2025. FINDINGS: Six views of the bilateral feet are submitted. Osseous mineralization is normal. There is no fracture or dislocation. 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 There is also degenerative change of the right tibiotalar joint. The soft tissues are unremarkable. XR/XR Foot Juan Miguel 3V IMPRESSION: Degenerative changes of the 1st tarsometatarsal joint and the anterior subtalar joint of the right foot. Electronically signed by: Roland Campbell MD 05/22/2025 01:15 PM EDT Dictated By: Roland Campbell MD Signed By: <Electronically signed by Roland Campbell MD in OV> 05/22/25 1315 DD/ 1303 TD/TT: 05/22/25 1308 Home Maker: us [facility] External Provider IMG XR PROCEDURES Final Result * HIV-1/2 Antigen and Antibodies, Fourth Generation, with Reflexes (05/20/2025 12:23 PM EDT) HIV AB/AG Nonreactive Nonreactive [facility] Comment:HIV-1 p24 Ag and/or HIV-1/HIV-2 Ab not detected.A test result that is nonreactive does not exclude thepossibility of exposure to or infection with HIV-1 and/orHIV-2. Nonreactive results in this assay for individualswith prior exposure to HIV-1 and/or HIV-2 may be due toantigen and antibody levels that are below the limit ofdetection of this assay.[facility] HIV Ag/Ab Combo assay result andsupplemental assay results should be interpreted inconjunction with the patient's clinical presentation,history and other laboratory results. If the results areinconsistent with clinical evidence, additional testing issuggested to confirm the result. Blood Venous blood specimen / Unknown 05/20/2025 12:23 PM EDT 05/20/2025 1:05 PM EDT us Johann Gilbert MD LAB BLOOD ORDERABLES Final Resul t [facility] [address] [place] [phone] * POCT Glucose (05/20/2025 11:28 AM EDT) [facility] Glucose Blood, POC 163 60 - 200 mg/dL QC Media Lot # [id number] Lot# Expiration Date 126 Blood Capillary blood specimen / Unknown 05/20/2025 11:28 AM EDT us Johann Gilbert MD POINT OF CARE TEST ENTER/EDIT OR DERABLES Final Result * (ABNORMAL) POCT A1c (04/23/2025 10:07 AM EDT) [facility] Hemoglobin A1C 6.8(A) 4.0 - 5.7 % QC Media Lot # Comment:[id number] Lot# Expiration Date Comment:11/24/2026 Blood 04/23/2025 10:0 7 AM EDT [facility] POINT OF CARE TEST ENTER/ EDIT ORDERABLES Final Result * Hepatitis C Antibody with Reflex to HCV, RNA, Quantitative, Real-Time PCR (01/14/2025 2:09 PM EDT) Hepatitis C Antibody Nonreactive Nonreactive [facility] Comment:Antibodies to HCV no t detected; does not exclude early acuteHCV infection. Blood Venous blood specimen / Unknown 01/14/2025 2:09 PM EDT 01/14/2025 4:15 PM EDT us Johann Gilbert MD LAB BLOOD ORDERABLES Final Resul t Performing Organization Address [facility] Co de Phone Number [facility] [address] [place] [phone] * Lipid Panel, Standard (10/16/2024 1:49 PM EST) Triglycerides 118 <150 mg/dL [facility] Comment:Desirable Triglyceri de: less than 150 mg/dLBorderline High Triglyceride 150-199 mg/dLHigh Triglyceride: 200-499 mg/dLVery High Triglyceride: greater than or equal to 5OO mg/dL Cholesterol 160 <200 mg/dL [facility] Comment:Desirable Cholestero l: less than 200 mg/dLBorderline High Cholesterol: 200-239 mg/dLHigh Cholesterol: greater than 239 mg/dL LDL Cholesterol Calculated 95 <100 mg/dL [facility] Comment:Desirable LDL: less than 100 mg/dLNear Optimal/Above Optimal LDL: 110- 129 mg/dLBorderline High LDL: 130-159 mg/dLHigh LDL: 160-189 mg/dLVery High LDL: greater than or equal to 190 mg/dL HDL Cholesterol 42 >40 mg/dL [facility] Comment:Desirable HDL: great er than 40 mg/dL Note: This HDL assay may give artificially low results in patients with liver disease. Blood Venous blood specimen / Unknown 10/16/2024 1:49 PM EST 10/16/2024 4:11 PM EST us Johann Gilbert MD LAB BLOOD ORDERABLES Final Resul t Performing Organization Address [facility] Co de Phone Number [facility] [address] [place] [phone] * Hm Colonoscopy (05/11/2016 11:38 AM EDT) Colonoscopy Normal Normal Narrative Katarina Frias - 05/11/2016 11:38 AM EDT Recommended 10 year follow up Historical Provider MD HEALTH MAINTENANCE Final Result from Last 3 Months or Most Recently Relevant to Health Maintenance Additional Health Concerns Active Problems Noted Date Diagnosed Date Help patients manage their type 2 diabetes 07/24 Weekly blood pressure task 07/24/2025 Help patients manage their type 2 diabetes 07/24 Patient has chronic kidney disease 07/24/2025 Weekly blood pressure task 07/24/2025 Patient has chronic kidney disease 07/24/2025 Weekly blood pressure task 07/24/2025 Weekly blood pressure task 07/24/2025 Patient has chronic kidney disease 07/24/2025 Patient has chronic kidney disease 07/24/2025 [facility] Care Teams Principal Web Developer Relationship Specialty Start Date End Date Name, MD Johann [address] [place] [address] PCP - General Family Medicine 10/22/15
--- OUTSIDE RECORDS SUMMARY | 2025-08-05 15:09 | XMS_ITS | Encounter Summary ---
Author Organization [employer] Address 75 [facility] 7t [place] [address] Care Team Providers Care Cultural Historian Name Role Phone Name, Johann CARRERA Primary Care Provider [phone] Reason for Visit * Reason Comments Med Refill Encounter Details Date Type Department Care Team (Late st Contact Info) Description 12/01/2024 Refill [facility] [address] [place], [place] [phone] Name, MD Johann [address] [place] [address] Type 2 diabetes mellitus without complication, without long-term current use of insulin ([facility]) Social History Tobacco Use Types [...] Description 08/18/2025 10:45 AM EST Office Visit [facility] [address] [place] [address] NameJohann MD [address] [place] [address] 11/05/2025 1:30 PM EDT Office Visit [facility] [address] [place] [address] Raya Jordan, OD [address] [place] [address] documented as of this encounter Visit Diagnoses Diagnosis Type 2 diabetes mellitus without complication, without long-term current use of insulin (HCC) documented in this encounter Additional Health Concerns Assessment Noted Time PHQ-9 Depression Total Score: 0 11/20/19 24 10:53 AM EDT documented as of this encounter Care Teams Cultural Historian Relationship Specialty Start Date End Date NameJohann MD [address] [place] [address] PCP - General Family Medicine 10/22/15 documented as of this encounter
--- OUTSIDE RECORDS SUMMARY | 2025-08-05 15:09 | XMS_ITS | Encounter Summary ---
Author Organization [employer] Address [address] [facility] [address] 7t [place] [address] Care Team Providers Care Society Editor Name Role Phone Name, Johann CARRERA Primary Care Provider [phone] Reason for Visit * Reason Onset Date Comments Nurse Triage 08/28/2023 Encounter Details Date Type Department Care Team ([facility] st Contact Info) Description 08/28/2023 Telephone [facility] [address] [place], [place] [phone] Name, MD oJhann [address] [place] [address] Nurse Triage Social History Tobacco Use Types [...] the past 12 months, has t he [employer] gas, oil or water [email or web address] threatened to shut off services in your [...] accepted this outcome Please contact pt at [phone] documented in this encounter Plan of Treatment Upcoming Encounters Date Type Department Care Team ([facility] st Contact Info) Description 08/18/2025 10:45 AM EST Office Visit [facility] [address] [place] [address] Name, MD Johann [address] [place] [address] 11/05/2025 1:30 PM EDT Office Visit [facility] [address] [place] [address] Raya Jordan, OD [address] [place] [address] documented as of this encounter Visit Diagnoses Not on filedocumented in this encounter Care Teams Society Editor Relationship Specialty Start Date End Date NameJohann MD [address] [place] [address] PCP - General Family Medicine 10/22/15 documented as of this encounter
--- OUTSIDE RECORDS SUMMARY | 2025-08-05 15:09 | XMS_ITS | Encounter Summary ---
Author Organization [employer] Address [address] [place] [address] 7t [place] [address] Care Team Providers Care Wash Crew Person Name Role Phone Name, Johann CARRERA Primary Care Provider [phone] Encounter Details Date Type Department Care Team (Late st Contact Info) Description 08/23/2022 Orders Only [facility] CHC MED & PEDS [address] [place] [address] Marsha Juares LPN Social History Tobacco Use [...] 08/18/2025 10:45 AM EST Office Visit [facility] MEDICINE [address] [place] [address] Name, MD Johann [address] [place] [address] 11/05/2025 1:30 PM EDT Office Visit [facility] OPTOMETRY [address] [place] [address] Raya Jordan, ISRA [address] [place] [address] documented as of this encounter Visit Diagnoses Not on filedocumented in this encounter Care Teams Wash Crew Person Relationship Specialty Start Date End Date NameJohann MD [address] [place] [address] PCP - General Family Medicine 10/22/15 documented as of this encounter
--- OUTSIDE RECORDS SUMMARY | 2025-08-05 15:09 | XMS_ITS | Clinical Summary ---
Author Organization [address] [facility] Address [address] [place] [address] Phone Care Team Providers Care Upper Cutter Out Name Role Phone Josh Prado MD Primary [...] on file Sexual Orientation Not on file Last Filed Vital Signs Vital Sign Reading [...] Sugar Control Test (HGBA1C) 03/10/2025 09/10/2024, 03/03/2024 COVID-19 Vaccine ( season) 2025 07/07/2024, 01/18/2022, 07/27/2021, Additional history exists Influenza Vaccine (#1) 2025 , 06/06/2023, 05/04/2022, [...] 07/20/2023, 10/02/2011 Hepatitis C Screening Completed 01/14/2025 HIB Vaccines [...] topic Insurance MEDICAID - [place] Care Teams Upper Cutter Out Relationship Specialty Start Date End Date Josh Prado MD [address] [place] [address] PCP - General 10/28/12
--- OUTSIDE RECORDS SUMMARY | 2025-08-05 15:09 | XMS_ITS | Encounter Summary ---
Author Organization [employer] Address 75 [facility] 7t [place] [address] Care Team Providers Care Hydro Electric Station Operator Name Role Phone Name, Johann CARRERA Primary Care Provider [phone] Reason for Visit * Reason Onset Date Comments Med Refill 04/16/2025 Encounter Details Date Type Department Care Team ([facility] st Contact Info) Description 04/16/2025 Telephone [facility] [address] [place], [place] [phone] Name, MD Johann [address] [place] [address] Med Refill Social History Tobacco Use Types [...] Description 08/18/2025 10:45 AM EST Office Visit [facility] [address] [place] [address] NameJohann MD 230 [place] [address] 11/05/2025 1:30 PM EDT Office Visit [facility] [address] [place] [address] Raya Jordan, OD [address] [place] [address] documented as of this encounter Visit Diagnoses Not on filedocumented in this encounter Additional Health Concerns Assessment Noted Time PHQ-9 Depression Total Score: 1 01/07/20 25 11:05 AM EDT documented as of this encounter Care Teams Hydro Electric Station Operator Relationship Specialty Start Date End Date Johann Gilbert MD [address] [place] [address] PCP - General Family Medicine 10/22/15 documented as of this encounter
--- OUTSIDE RECORDS SUMMARY | 2025-08-05 15:09 | XMS_ITS | Encounter Summary ---
Author Organization [employer] Address 75 [facility] 7t [place] [address] Care Team Providers Care Master Rigger Name Role Phone Name, Johann CARRERA Primary Care Provider [phone] Encounter Details Date Type Department Care Team ([facility] st Contact Info) Description 03/15/[address] [facility] MED[facility]INE [address] [place], [place] [phone] Name, MD Johann [address] [place] [address] Social History Tobacco Use Types Packs/Day Years [...] Nova Peters - 03/15/2023 2:43 PM EDT Planning Associate refaxed referral to [phone]. * Telephone Encounter - Kirstin Yoder RN - 03/15/2023 11:04 AM EDT TC placed to Dr. Krishnan's office at [facility] ([phone]), they report they only received 1 page of referral just listing pt. Dx. And demographic information. They are requesting office visit note from when pt. Was referred as well as face sheet including insurance information along with referral. Please fax to [phone], thank you! * Telephone Encounter - Doris Roman - 03/15/2023 9:36 AM EDT Tc from pt states Dr Krishnan is requesting more information on DX for hand specialist referral. Fax to [phone]. documented in this encounter Plan of Treatment Upcoming Encounters Date Type Department Care Team (Late st Contact Info) Description 08/18/2025 10:45 AM EST Office Visit [facility] MED[facility] [address] [place] [address] Name, MD Johann [address] [place] [address] 11/05/2025 1:30 PM EDT Office Visit [facility] OPTOMETRY [address] [place] [address] Raya Jordan, OD [address] [place] [address] documented as of this encounter Visit Diagnoses Not on filedocumented in this encounter Care Teams Master Rigger Relationship Specialty Start Date End Date Name, MD Johann [address] [place] [address] PCP - General Family Medicine 10/22/15 documented as of this encounter
--- OUTSIDE RECORDS SUMMARY | 2025-08-05 15:09 | XMS_ITS | Encounter Summary ---
Author Organization [employer] Address [address] [place] [address] 7t [place] [address] Care Team Providers Care Pneumatic Systems Operator Name Role Phone Name, Johann CARRERA Primary Care Provider [phone] Encounter Details Date Type Department Care Team (Late st Contact Info) Description 08/01/2022 Orders Only [facility] CHC MED & PEDS [address] [place] [address] Marsha Juares LPN Social History Tobacco Use [...] Description 08/18/2025 10:45 AM EST Office Visit [facility] MEDICINE [address] [place] [address] Name, MD Johann [address] [place] [address] 11/05/2025 1:30 PM EDT Office Visit [facility] OPTOMETRY [address] [place] [address] Raya Jordan, ISRA [address] [place] [address] documented as of this encounter Visit Diagnoses Not on filedocumented in this encounter Care Teams Pneumatic Systems Operator Relationship Specialty Start Date End Date NameJohann MD [address] [place] [address] PCP - General Family Medicine 10/22/15 documented as of this encounter
--- OUTSIDE RECORDS SUMMARY | 2025-08-05 15:09 | XMS_ITS | Encounter Summary ---
Author Organization [employer] Address [address] [facility] 7t [place] [address] Care Team Providers Care General Dentist/Owner Name Role Phone Name, Johann CARRERA Primary Care Provider Reason for Visit * Reason Comments Med Refill Encounter Details Date Type Department Care Team (Late st Contact Info) Description 10/27/2024 Refill [facility] [address] [place], [place] [phone] Name, MD Johann [address] [place] [address] Hypertension, unspecified type Social History Tobacco Use [...] Description 08/18/2025 10:45 AM EST Office Visit [facility] MEDICINE [address] [place] [address] NameJohann MD [address] [place] [address] 11/05/2025 1:30 PM EDT Office Visit [facility] OPTOMETRY [address] [place] [address] Tarka, Raya, OD [address] [place] [address] documented as of this encounter Visit Diagnoses Diagnosis Hypertension, unspecified type documented in this encounter Additional Health Concerns Assessment Noted Time PHQ-9 Depression Total Score: 0 11/20/19 24 10:53 AM EDT documented as of this encounter Care Teams General Dentist/Owner Relationship Specialty Start Date End Date Johann Gilbert MD [address] [place] [address] PCP - General Family Medicine 10/22/15 documented as of this encounter
--- OUTSIDE RECORDS SUMMARY | 2025-08-05 15:09 | XMS_ITS | Encounter Summary ---
Author Organization [employer] Address [address] [facility] [address] [place] [address] Care Team Providers Care Director Emergency Name Role Phone Name, Johann CARRERA Primary Care Provider [phone] Encounter Details Date Type Department Care Team ([facility] st Contact Info) Description 12/18/2023 Telephone [facility] [address] [place], [place] [phone] Name, MD Johann [address] [place] [address] Social History Tobacco Use Types Packs/Day Years [...] Description 08/18/2025 10:45 AM EST Office Visit [facility] MED[facility]INE [address] [place] [address] Johann Gilbert MD [address] [place] [address] 11/05/2025 1:30 PM EDT Office Visit [facility] OPTOMETRY [address] [place] [address] Tarka, Raya, OD [address] [place] [address] documented as of this encounter Visit Diagnoses Not on filedocumented in this encounter Additional Health Concerns Assessment Noted Time PHQ-9 Depression Total Score: 0 11/20/19 24 10:53 AM EDT documented as of this encounter Care Teams Director Emergency Relationship Specialty Start Date End Date Johann Gilbert MD [address] [place] [address] PCP - General Family Medicine 10/22/15 documented as of this encounter
--- OUTSIDE RECORDS SUMMARY | 2025-08-05 15:09 | XMS_ITS | Encounter Summary ---
Author Organization [employer] Address [address] [facility] 7t [place] [address] Care Team Providers Care Diesel Tractor Engine Mechanic Name Role Phone Name, Johann CARRERA Primary Care Provider [phone] Reason for Visit * Reason Comments Med Refill Encounter Details Date Type Department Care Team (Late st Contact Info) Description 07/18/2025 Refill [facility] MEDICINE [address] [place], [place] [phone] Name, MD Johann [address] [place] [address] Hypertension, unspecified type Social History Tobacco Use [...] Description 08/18/2025 10:45 AM EST Office Visit [facility] MEDICINE [address] [place] [address] NameJohann MD [address] [place] [address] 11/05/2025 1:30 PM EDT Office Visit [facility] OPTOMETRY [address] [place] [address] Raya Jordan, OD [address] [place] [address] documented as of this encounter Visit Diagnoses Diagnosis Hypertension, unspecified type documented in this encounter Additional Health Concerns Assessment Noted Time PHQ-9 Depression Total Score: 1 01/07/20 25 11:05 AM EDT documented as of this encounter Care Teams Diesel Tractor Engine Mechanic Relationship Specialty Start Date End Date Johann Gilbert MD [address] [place] [address] PCP - General Family Medicine 10/22/15 documented as of this encounter
== END 2025-08-05 11:37 | disposition home or self-care (01) ==
LOC: HO.HPODS 11:24
PROVIDERS: PCP Internal Medicine Geriatric Medicine; Visit Provider Student in an Organized Health Care Education/Training Program
DX: M77.50 Other enthesopathy of unspecified foot and ankle (principal); M19.171 Post-traumatic osteoarthritis, right ankle and foot; M79.671 Pain in right foot
CPT/HCPCS: 99213

== ENCOUNTER → 2025-08-05 11:23 | Outpatient (BNVA) | payer MEDICAID, SELFPAY | PROVIDERS: PCP Internal Medicine Geriatric Medicine; Visit Provider Student in an Organized Health Care Education/Training Program | DX: M77.51 Other enthesopathy of right foot and ankle (principal); M19.171 Post-traumatic osteoarthritis, right ankle and foot; M79.671 Pain in right foot; E11.9 Type 2 diabetes mellitus without complications | CPT/HCPCS: 99212 ==